=== PATIENT | female | born 1975 | race Caucasian/White ===

== ENCOUNTER → 2017-10-18 | Outpatient (REF) | payer OTHER ==
[2017-10-18 14:20] LABS: ALBUMIN 3.8 GM/DL (3.2-5.2); ALBUMIN/GLOBULIN RATIO 1.19 (1.00-1.93); ALKALINE PHOSPHATASE 54 U/L (45-117); ALT/SGPT 19 U/L (12-78); ANION GAP 5 MEQ/L (8-16); AST/SGOT 10 U/L (7-37); BILIRUBIN,TOTAL 0.3 MG/DL (0.2-1.0); BLOOD UREA NITROGEN 12 MG/DL (7-18); CARBON DIOXIDE LEVEL 27 MEQ/L (21-32); CHLORIDE LEVEL 108 MEQ/L (98-107); CHOLESTEROL LEVEL 159 MG/DL (<200); CHOLESTEROL RISK RATIO 3.117 (<5); CREATININE FOR GFR 0.58 MG/DL (0.55-1.02); GLOMERULAR FILTRATION RATE > 60.0 (>58); GLUCOSE, FASTING 102 MG/DL (70-105); HDL CHOLESTEROL 51 MG/DL (>40); LDL CHOLESTEROL 94.6 MG/DL (<100); NON-HDL-C 108 MG/DL; POTASSIUM SERUM 4.3 MEQ/L (3.5-5.1); SODIUM LEVEL 140 MEQ/L (136-145); THYROID STIMULATING HORMONE 0.669 uIU/ML (0.358-3.740); TRIGLYCERIDES LEVEL 67 MG/DL (<150)
[2017-10-18 14:23] LABS: ESTIMATED AVERAGE GLUCOSE 114 MG/DL (60-110); HEMOGLOBIN A1c 5.6 %
[2017-10-18 14:27] LABS: TOTAL 25(OH) VITAMIN D 9.8 NG/ML (30.0-100.0)
== END ==
LOC: M LAB REF 13:10
DX: Z13.9 Encounter for screening, unspecified (principal)
CPT/HCPCS: 84443

== ENCOUNTER → 2018-12-25 | Outpatient (REF) | payer OTHER ==
[2018-12-25 18:49] LABS: APPEARANCE, URINE CLEAR (CLEAR); BACTERIA, URINE AUTO 1+ (NEGATIVE); BILIRUBIN, URINE AUTO NEGATIVE (NEGATIVE); BLOOD, URINE BLOOD 2+ (NEGATIVE); COLOR, URINE YELLOW (YELLOW); GLUCOSE, URINE (UA) AUTO NEGATIVE (NEGATIVE); KETONE, URINE AUTO NEGATIVE (NEGATIVE); LEUKOCYTE ESTERASE, URINE AUTO 1+ (NEGATIVE); MUCUS, URINE SMALL (NEGATIVE); NITRITE, URINE AUTO NEGATIVE (NEGATIVE); PROTEIN, URINE AUTO NEGATIVE (NEGATIVE); RBC, URINE AUTO 8 /HPF (0-3); SPECIFIC GRAVITY URINE AUTO 1.009 (1.002-1.035); SQUAMOUS EPITHELIAL CELL UR AU 2 /HPF (0-6); UROBILINOGEN, URINE AUTO 0.2 mg/dL (0.0-2.0); WBC, URINE AUTO 4 /HPF (0-3)
== END ==
LOC: M LAB REF 16:41
PROVIDERS: ATTEND Nurse Practitioner Adult Health
DX: N39.46 Mixed incontinence (principal)

== ENCOUNTER → 2019-01-02 | Outpatient (CLI) | payer OTHER ==
--- NOTE | 2019-01-02 12:10 | REPMRS ---
Patient History The patient states she has not had a clinical breast exam in over a year. Patient had first child at age 35. No known family history of cancer, patient was adopted. 3D TOMOSYNTHESIS WAS PERFORMED. Digital Mammo Screening Bilat: January 02, 2019 - Exam #: [id number] Bilateral CC and MLO view(s) were taken. Technologist: Mariel Rodríguez Technologist FINDINGS: There are scattered fibroglandular densities. There is no evidence of cancer on this mammogram. Assessment: BI-RADS/ACR category 2 mammogram. Benign Findings. Recommendation Routine screening mammogram of both breasts in 1 year (for women over age 40). This mammogram was interpreted with the aid of an FDA-approved computer-aided dectection system. Electronically Signed By: Ramón Beltran MD 01/02/19 [id number]
== END ==
LOC: M RAD 10:59
PROVIDERS: ATTEND Nurse Practitioner Adult Health
DX: Z13.9 Encounter for screening, unspecified (principal)

== ENCOUNTER → 2019-01-09 | Outpatient (REF) | payer OTHER | LOC: M SMT 17:30 | PROVIDERS: ATTEND Urology | DX: N39.3 Stress incontinence (female) (male) (principal) ==

== ENCOUNTER → 2019-01-15 | Outpatient (REF) | payer OTHER ==
[2019-01-15 20:29] LABS: CHLAMYDIA DNA AMPLIFICATION NEGATIVE (NEGATIVE); GC DNA AMPLIFICATION NEGATIVE (NEGATIVE)
== END ==
LOC: M LAB REF 17:01
PROVIDERS: ATTEND Nurse Practitioner Family
DX: Z12.4 Encounter for screening for malignant neoplasm of cervix (principal); R87.610 Atypical squamous cells of undetermined significance on cytologic smear of cervix (ASC-US); A59.01 Trichomonal vulvovaginitis

== ENCOUNTER → 2019-03-19 | Outpatient (REF) | payer OTHER ==
[~2019-03-19] MED LIST: ALBU8.5H PO; ALL10TAB28 PO; FLUTISP NARES; MONT10TA2 PO; PRED10TA2 PO; ROBA500T PO
== END ==
LOC: M LAB REF 17:39
PROVIDERS: ATTEND Specialist
DX: N87.0 Mild cervical dysplasia (principal)

== ENCOUNTER 2019-03-28 11:01 | Emergency (ER) | payer OTHER ==
[~2019-03-28] VITALS: Ht 152.4 cm; Wt 56.8 kg
[2019-03-28] MEDS ORDERED: ALBU8.5H PO (11:14)
[2019-03-28] MEDS ORDERED: MONT10TA2 PO (11:14)
[2019-03-28] MEDS ORDERED: FLUTISP NARES (11:14)
[2019-03-28] MEDS ORDERED: ALL10TAB28 PO (11:14)
[2019-03-28] MEDS ORDERED: METHOCARBAMOL 500 MG TAB PO ONE (11:30)
[2019-03-28] MEDS ORDERED: KETOROLAC 60 MG/2 ML VIAL (J1885) IM ONE (11:30)
[2019-03-28] MEDS ORDERED: PRED10TA2 PO (11:44)
[2019-03-28] MEDS ORDERED: ROBA500T PO (11:44)
[2019-03-28 11:59] VITALS: BP 109/74
== END 2019-03-28 11:59 | disposition home or self-care (01) ==
LOC: M ED 11:01
DX: M54.42 Lumbago with sciatica, left side (principal); Z79.899 Other long term (current) drug therapy; F17.210 Nicotine dependence, cigarettes, uncomplicated
CPT/HCPCS: 96372; 99283; J1885

== ENCOUNTER → 2019-05-02 | Outpatient (REF) | payer OTHER ==
[2019-05-02 10:46] LABS: BASO % 0.5 % (0.0-1.0); EOS # 0.1 10^3/uL (0.0-0.50); EOS % 0.7 % (0.0-3.0); HEMATOCRIT 40.8 % (36.0-47.0); HEMOGLOBIN 13.8 g/dl (12.0-15.5); LYMPH # 2.3 10^3/uL (1.5-4.5); MEAN CORPUSCULAR HEMOGLOBIN 32.8 pg (27.0-33.0); MEAN CORPUSCULAR HGB CONC 33.8 g/dl (32.0-36.5); MEAN CORPUSCULAR VOLUME 96.9 fl (80.0-96.0); MONO # 0.5 10^3/uL (0.0-0.8); MONO % 5.8 % (0.0-5.0); NEUTROPHILS # 5.3 10^3/uL (1.8-7.7); NEUTROPHILS % 64.5 % (36.0-66.0); PLATELET COUNT, AUTOMATED 446 10^3/uL (150-450); RED BLOOD COUNT 4.21 10^6/uL (4.00-5.40); WHITE BLOOD COUNT 8.3 10^3/uL (4.0-10.0)
[2019-05-02 10:57] LABS: INR 1.01
[2019-05-02 10:58] LABS: PARTIAL THROMBOPLASTIN TIME 31.1 SECONDS (25.0-38.4)
[2019-05-02 11:05] LABS: HEMOGLOBIN A1c 6.2 %
[2019-05-02 11:24] LABS: ALBUMIN 4.2 GM/DL (3.2-5.2); ALT/SGPT 34 U/L (12-78); BILIRUBIN,TOTAL 0.4 MG/DL (0.2-1.0); BLOOD UREA NITROGEN 17 MG/DL (7-18); CALCIUM LEVEL 9.4 MG/DL (8.5-10.1); CARBON DIOXIDE LEVEL 28 MEQ/L (21-32); CHLORIDE LEVEL 107 MEQ/L (98-107); CHOLESTEROL LEVEL 153 MG/DL (<200); CHOLESTEROL RISK RATIO 2.732 (<5); CREATININE FOR GFR 0.58 MG/DL (0.55-1.30); FREE T4 1.02 NG/DL (0.76-1.46); GLOMERULAR FILTRATION RATE > 60.0 (>58); GLUCOSE, FASTING 86 MG/DL (70-100); HDL CHOLESTEROL 56 MG/DL (>40); LDL CHOLESTEROL 77 MG/DL (<100); NON-HDL-C 97 MG/DL; POTASSIUM SERUM 3.7 MEQ/L (3.5-5.1); SODIUM LEVEL 141 MEQ/L (136-145); TOTAL PROTEIN 7.4 GM/DL (6.4-8.2); TRIGLYCERIDES LEVEL 98 MG/DL (<150)
[2019-05-02 11:26] LABS: TOTAL 25(OH) VITAMIN D 17.5 NG/ML (30.0-100.0)
[2019-05-04 00:06] LABS: Lyme Disease IgG/IgM Antibodie <0.91 ISR (0.00-0.90); Lyme Disease IgM Ab Quantitati <0.80 index (0.00-0.79)
== END ==
LOC: M LAB REF 09:31
PROVIDERS: ATTEND Family Medicine
DX: Z01.818 Encounter for other preprocedural examination (principal)

== ENCOUNTER 2019-05-16 19:13 | Emergency (ER) | payer OTHER ==
[~2019-05-16] VITALS: Ht 152.4 cm; Wt 52.3 kg
[~2019-05-16 19:13] MED LIST changes: -ALL10TAB28 PO; +ALL10TAB29 PO; +FLUTISP; -FLUTISP NARES
[2019-05-16] MEDS ORDERED: diazePAM 10 MG TAB PO ONE (21:00)
[2019-05-16] MEDS ORDERED: KETOROLAC 30 MG/ML VIAL (J1885) IV ONE (21:00)
[2019-05-16] MEDS ORDERED: LIDOCAINE 5% (LIDODERM) PATCH TD ONE (21:00)
[2019-05-16] MEDS ORDERED: **NOTE PATIENT COMMENT** MISC XX SCH (21:00)
[2019-05-16] MEDS ORDERED: KETOROLAC 60 MG/2 ML VIAL (J1885) IM ONE (21:15)
--- NOTE | 2019-05-16 21:56 | REPVR ---
EXAM: CT Lumbar Spine Without Contrast EXAM DATE/TIME: 05/16/2019 9:05 PM CLINICAL HISTORY: 44 years old, female; Injury or trauma; Fall; Late effect from previous injury; Blunt trauma (contusions or hematomas); Injury details: Fell in December; Additional info: PT tender, fall in December TECHNIQUE: Imaging protocol: Computed tomography images of the lumbar spine without contrast. Coronal and sagittal reformatted images were created and reviewed. Radiation optimization: All CT scans at this facility use at least one of these dose optimization techniques: automated exposure control; mA and/or kV adjustment per patient size (includes targeted exams where dose is matched to clinical indication); or iterative reconstruction. COMPARISON: No relevant prior studies available. FINDINGS: Vertebrae: No acute fracture. Normal alignment. L1-L2: No disc herniation. No spinal stenosis. No neural foraminal narrowing. L2-L3: No disc herniation. No spinal stenosis. No neural foraminal narrowing. L3-L4: Circumferential annulus bulge.. No spinal stenosis. No neural foraminal narrowing. L4-L5: Circumferential annulus bulge.. No spinal stenosis. No neural foraminal narrowing. L5-S1: Circumferential annulus bulge.. No spinal stenosis. No neural foraminal narrowing. Soft tissues: There is a destructive lesion noted within the right ilium at the level the sacroiliac joint. The underlying ilium is increased in density. Loss of cortical definition of the adjacent sacrum suggest the possibility of sacral involvement.. Associated mass extends into the adjacent gluteus medius muscles. Calcification noted within the mass. IMPRESSION: 1. Expansile lytic lesion in the right ilium with an associated soft tissue mass containing heterogeneous calcification.. Focal area of loss of definition of the adjacent right lateral sacral margin could represent extension/infiltration of the mass. Differential diagnostic considerations include a primary bone tumor or metastatic disease. This was discussed with Bhargavi ARCHER by myself at 8:55 PM Central standard time on 05/16/2019 Electronically signed by: Jeanette Garibay On 05/16/2019 21:56:47 PM
[2019-05-16] MEDS ORDERED: NORC1TAB7 PO (22:33)
[2019-05-16 22:44] VITALS: BP 121/69
[2019-05-16] MEDS ORDERED: NORCO 5/325MG TABLET (BULK FOR ED) PO ONE (22:45)
[2019-05-17] MEDS ORDERED: **NOTE PATIENT COMMENT** MISC XX ONE (09:00)
--- NOTE | 2019-05-19 21:02 | ED PDOC ---
Post-Departure Follow-Up dr lundberg and dr avila faxed formal report of ct ls spine for fu Melisa Bob MD May 19, 2019 21:02
[2019-05-29] MEDS ORDERED: ALBU83IN INH (12:55)
[2019-05-29] MEDS ORDERED: VITA500045 PO (12:55)
[2019-05-29] MEDS ORDERED: IPRA0.00 INH (12:55)
[2019-05-29] MEDS ORDERED: NORC1TAB7 PO (13:30)
[2019-05-29] MEDS ORDERED: ENOX80IN3 SC (16:35)
[2019-06-07] MEDS ORDERED: NORC1TAB7 PO (11:59)
[2019-06-17] MEDS ORDERED: NORC1TAB7 PO (13:03)
[2019-06-19] MEDS ORDERED: IBUP-1022 PO (11:01)
[2019-07-04] MEDS ORDERED: MSIR30TA PO (16:14)
[2019-07-11] MEDS ORDERED: ONDA8TAB10 PO (14:17)
== END 2019-05-16 22:48 | disposition home or self-care (01) ==
LOC: M ED 19:13
DX: R93.7 Abnormal findings on diagnostic imaging of other parts of musculoskeletal system (principal); M54.5 Low back pain; Z87.891 Personal history of nicotine dependence; Z79.899 Other long term (current) drug therapy
CPT/HCPCS: 72131; 96372; 99283; J1885

== ENCOUNTER → 2019-05-29 | Outpatient (CLI) | payer OTHER ==
[~2019-05-29] MED LIST changes: +ALBU83IN INH; +ALL10TAB28 PO; -ALL10TAB29 PO; +ENOX80IN3 SC; -FLUTISP; +FLUTISP NARES; +IPRA0.00 INH; +ISOVUE-370 76% 100ML VIAL (Q9967) As Ordered ONE; +NORC1TAB7 PO; +VITA500045 PO
--- NOTE | 2019-05-29 16:20 | REP ---
CT of the chest with IV contrast, CT pulmonary angiography protocol: There are faintly visible linear densities within the pulmonary trunk and left main pulmonary artery, nonspecific, artifact from flow phenomenon versus nonocclusive thrombus. No other thrombi are identified within the pulmonary trunk, right central pulmonary artery lobe or segment branches. There are innumerable confluent irregular patchy nodular densities throughout both lung hammer. This is nonspecific and could represent infectious lung disease, chronic lung disease or metastatic lung disease. There are old bilateral pleural effusions. There is no mediastinal lymphadenopathy. There is no left hilar adenopathy. There is soft tissue density in the right hilus which could be lymphadenopathy or extension of the pulmonary process into the hilus or right middle lobe collapse. The thoracic aorta is unremarkable. The cardiac size is normal. There is no pericardial effusion. Upper abdomen: There are surgical clips in the gallbladder fossa. The hepatic parenchyma, pancreas, spleen, adrenals and renal upper poles are unremarkable. Impression: Questionable a nonocclusive pulmonary emboli in the pulmonary trunk and right main pulmonary artery. Innumerable irregular nodular confluent densities throughout the lung hammer bilaterally. This is nonspecific and could represent infectious disease, chronic lung disease or metastatic disease. There are small bilateral pleural effusions. Soft tissue density in the right hilus, nonspecific, lymphadenopathy, extension of the pulmonary disease in the hilus, or right middle lobe collapse. Electronically Signed by Ramón Liang MD 05/29/2019 04:13 P
== END ==
LOC: M RAD 14:38
PROVIDERS: ATTEND Internal Medicine Medical Oncology
DX: R06.02 Shortness of breath (principal); D48.0 Neoplasm of uncertain behavior of bone and articular cartilage; R91.8 Other nonspecific abnormal finding of lung field; J90 Pleural effusion, not elsewhere classified
CPT/HCPCS: 71275; Q9967

== ENCOUNTER 2019-06-04 10:59 | Outpatient (RCR) | payer OTHER ==
[2019-05-29 12:48] VITALS: BP 117/74
[2019-05-29 14:28] LABS: BASO # 0.1 10^3/uL (0.0-0.2); BASO % 0.6 % (0.0-1.0); EOS # 0.1 10^3/uL (0.0-0.50); EOS % 0.9 % (0.0-3.0); HEMOGLOBIN 13.3 g/dl (12.0-15.5); LYMPH # 1.8 10^3/uL (1.5-4.5); LYMPH % 16.5 % (24.0-44.0); MEAN CORPUSCULAR HEMOGLOBIN 32.8 pg (27.0-33.0); MEAN CORPUSCULAR VOLUME 93.8 fl (80.0-96.0); MONO # 0.8 10^3/uL (0.0-0.8); NEUTROPHILS % 74.5 % (36.0-66.0); PLATELET COUNT, AUTOMATED 620 10^3/uL (150-450); RED BLOOD COUNT 4.05 10^6/uL (4.00-5.40); WHITE BLOOD COUNT 10.7 10^3/uL (4.0-10.0)
[2019-05-29 15:21] LABS: ALBUMIN 3.1 GM/DL (3.2-5.2); ALT/SGPT 28 U/L (12-78); BILIRUBIN,TOTAL 0.2 MG/DL (0.2-1.0); BLOOD UREA NITROGEN 13 MG/DL (7-18); CALCIUM LEVEL 9.1 MG/DL (8.5-10.1); CARBON DIOXIDE LEVEL 25 MEQ/L (21-32); CHLORIDE LEVEL 108 MEQ/L (98-107); CREATININE FOR GFR 0.63 MG/DL (0.55-1.30); GLOMERULAR FILTRATION RATE > 60.0 (>58); GLUCOSE, FASTING 117 MG/DL (70-100); LDH LACTATE DEHYDROGENASE 383 U/L (84-246); POTASSIUM SERUM 2.6 MEQ/L (3.5-5.1); SODIUM LEVEL 140 MEQ/L (136-145); TOTAL PROTEIN 7.2 GM/DL (6.4-8.2)
[2019-05-30] MEDS: KCL 10MEQ/100ML SWI (KRUN) X 2 DOSES (20MEQ TOTAL) IV SCH ×4 (09:23→10:57)
[2019-05-30 09:45] VITALS: BP 103/72
--- NOTE | 2019-06-01 11:35 | MEDONC ---
MEDICAL ONCOLOGY INITIAL VISIT DATE OF SERVICE: 05/29/2019 REFERRING PHYSICIAN: Emergency room. DIAGNOSIS New right iliac soft tissue mass suspicious for malignancy. HISTORY OF PRESENT ILLNESS Sonia is a 44-year-old woman with an approximate 30 pack-year smoking history stopped recently, who since last January has been dealing with chronic pain, uncertain origin involving the right low back. She reports a fall several years ago with significant trauma to that area. She sought medical attention 05/16/2019 in the emergency room, a CT of the spine without contrast revealed an expansile lytic lesion in the right ileum with an associated soft tissue mass containing heterogeneous calcifications, focal areas of loss of definition. The mass is fairly large perhaps 4-5 cm. By contrast an abdomen and pelvis CT from 01/2014 revealed absolutely no abnormality in that area. Today, Sonia is accompanied by her mother. She reports the last few days feeling more short of breath. At baseline she has asthma/emphysema, a fairly significant smoking history and uses inhalers. She thinks it might be the weather. She denies hemoptysis. She has had a weight loss in the last year or so she attributes to difficulties with teeth. She had her teeth removed, was all set to have new implant placed and there was a glitch and during this whole process she feels she has had lower food intake and lost weight as a result. PAST MEDICAL HISTORY: Asthma/emphysema, possible component of COPD. PAST SURGICAL HISTORY: Cholecystectomy, D and C. ALLERGIES No known drug allergies. MEDICATIONS - albuterol 2.5 mg inhaler p.r.n. - cetirizine 10 mg daily - Vitamin D 50,000 units per week - fluticasone 2 sprays daily - [place] 5/325 up to three times daily. Recently prescribed in the emergency room. - bupropion albuterol inhalation as needed - Montelukast 10 mg daily FAMILY HISTORY The patient is adopted, does not know her biological family. REVIEW OF SYSTEMS: Positive for weight loss, recent treatment for pneumonia with 2 ounces a Z-Alfredo, right leg pain, difficulty sleeping, low back pain and pressure some radiating anteriorly. Remainder of 12 system review negative. PHYSICAL EXAMINATION The patient is a slender edentulous young woman in no distress. Respiratory: Coarse breath sounds with end inspiratory wheezes throughout, but adequate air movement. Cardiac: S1, S2 mild tachycardia, no gallop. Abdomen: Soft, nontender, nondistended, no palpable hepatosplenomegaly or mass. Extremities. No edema. Lymph nodes: No palpable submandibular, cervical, supraclavicular or axillary adenopathy bilaterally. Vitals: Weight is 51 kg, BMI 22, temperature 97, blood pressure 117/74, heart rate 114, respiratory 24, O2 sat 94%. LABORATORY: WBC 10.7, monocyte and neutrophil predominance. Hemoglobin/hematocrit 13 and 38, platelets 620. Sodium 140, potassium 2.6, chloride 108, bicarb 25. BUN, creatinine, GFR normal. Liver functions normal. Albumin 3.1, alk phos 115. IMPRESSION 44-year-old woman with a new right iliac mass arising from the bone vs surrounding soft tissue suspicious for sarcoma Symptomatic with pain. Treated currently with hydrocodone and acetaminophen, receiving relief. Extensive smoking history and history of emphysema/COPD, with new worsening shortness of breath despite two rounds of antibiotics,concerning for possible lung involvment of tumor vs pulmonary embolism. Hypokalemia revealed by labs post visit; our INTERIOR SPECIALIST Nirmala Melton called patient to set up IV vs oral repletion. PLAN 1. CT angio of the chest to rule out pulmonary embolism. 2. I have spoken with [facility] in [place]. The patient can be seen there later this week for biopsy and further imaging. This is highly suspicious for a primary sarcoma based on location and imaging. ADDENDUM at time of dication: CT angio showed multiple abnormalities, small nodules versus infiltrates versus chronic lung disease, a small possible embolus. I started Sonia on Lovenox 1.5 mg/kg 80 mg subcu daily. She is familiar with self injecting and required no teaching. I explained the lung findings, showed her the pictures and explained this could represent metastatic disease. I conferred with Dr. Carrillo's office and Papito Keen will see the patient this week with diagnostic workup proceed. He will contact me if that workup shows systemic disease. I explained all of the above to Sonia who was understandably surprised to learn of possible cancer. She and her mom asked several questions all of which I answered. I explained this could be a sarcoma which is slightly different from carcinoma. Sarcomas can be difficult to cure and I was jolynn with Sonia that when cancer has spread outside its original source and spread to the lungs for example, it would not be curable. Time statement: 45 minutes [id number] with the patient more than 50% involving counseling, care coordination, reviewing new images, instructing regarding Lovenox, reviewing the differential diagnosis, answering the patient's and her mother's questions. Electronically Signed by Kavya Pang MD 06/04/2019 10:59 A DD: Kavya Pang MD 05/30/2019 05:07 P DT: jory 06/01/2019 10:57 A CC: MD Jeramy Gregg MD
[~2019-06-04] VITALS: Ht 153.7 cm; Wt 50.8 kg
[~2019-06-04 10:59] MED LIST changes: -ALL10TAB28 PO; +ALL10TAB29 PO; +FLUTISP; -FLUTISP NARES; -ISOVUE-370 76% 100ML VIAL (Q9967) As Ordered ONE
[2019-06-04 11:09] VITALS: BP 124/93
--- NOTE | 2019-06-05 08:56 | MEDONC ---
MEDICAL ONCOLOGY FOLLOWUP DATE OF SERVICE: 06/04/2019 DIAGNOSES: 1. Right iliac mass 4-5 cm suspicious for soft tissue versus osteosarcoma in initial workup. 2. Pulmonary embolism diagnosed 05/29/2019. 3. 30 pack-year smoking history stopped May 2019. 4. Abnormal CT angio of the chest including bilateral innumerable small soft tissue densities infection versus neoplasm. INTERVAL HISTORY: Sonia was set up to see Dr. Carrillo/Or[facility]opedic [facility]cology last week but cancelled due to "not feeling well" after receiving an IV potassium repletion. She feels much better today. She has now been on Lovenox for several days. Her breathing is better she reports. Her appetite is better. She is eating more. She asks if taking Mucinex is okay. She has what she thinks is a smoker's cough, coughing up dark phlegm. She is scheduled to see Dr. Carrillo tomorrow. Today, we went over the working diagnosis of a possible sarcoma involving the left iliac with question of lung involvement versus chronic emphysema changes and superimposed bronchitis. I explained in careful plain language the important difference between localized and metastatic cancer in general, sarcoma in particular and emphasized the importance of a tissue biopsy to understand the exact diagnosis to know how it would be treated. I outlined the possibility of neoadjuvant or adjuvant chemotherapy for localized possibly operable sarcoma, systemic therapy for nonoperable cancer and again did caution Sonia and her mother nonoperable metastatic cancer is typically incurable with treatment and prognosis determined by tissue-type. 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 30 pack-year smoker recent stopping cough but improved breathing. Pulmonary embolism diagnosed 05/29/2019 breathing improved on Lovenox. PLAN: 1. Continue Lovenox. Sonia would like to go on pills but until we know her diagnosis and plan treatment course I recommended she continue Lovenox. 2. Followup with Dr. Carrillo tomorrow. 3. Return to clinic 1 week, at that point will have a little more information about the overall picture and continue to help with workup of this tumor. TIME STATEMENT: 25 minutes [id number] with the patient more than 50% involving counseling regarding all the issues above, answering questions. Electronically Signed by Kavya Pang MD 06/05/2019 11:06 A DD: Kavya Pang MD 06/04/2019 11:29 A DT: henny 06/05/2019 08:36 A CC: MD Jeramy Gregg MD
[2019-06-07] MEDS ORDERED: NORC1TAB7 PO (11:59)
[2019-06-17] MEDS ORDERED: NORC1TAB7 PO (13:03)
--- NOTE | 2019-06-17 16:23 | MEDONC ---
MEDICAL ONCOLOGY BRIEF NOTE DATE: 06/14/2019 Outside biopsy pathology report from 06/13/2019 iliac mass biopsy under Dr. 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 I have requested PD-L1, EGFR, ALK, ROS1, and BRAF testing. The patient is to follow up with Dr. Carrillo but it does appear she likely has widespread metastatic disease. Today I am referring her for rapid radiation oncology evaluation and she will followup with us in clinic next week. Electronically Signed by Kavya Pang MD 06/18/2019 01:59 P DD: Kavya Pang MD 06/14/2019 01:48 P DT: henny 06/17/2019 04:21 P CC: MD Ramón Gregg MD
[2019-06-19] MEDS ORDERED: IBUP-1022 PO (11:01)
[2019-07-04] MEDS ORDERED: MSIR30TA PO (16:14)
== END 2019-06-04 11:00 | disposition home or self-care (01) ==
LOC: M ONCM 10:59
PROVIDERS: ATTEND Internal Medicine Medical Oncology
DX: R19.09 Other intra-abdominal and pelvic swelling, mass and lump (principal); M54.5 Low back pain; J45.909 Unspecified asthma, uncomplicated; Z87.891 Personal history of nicotine dependence; Z79.899 Other long term (current) drug therapy; R06.02 Shortness of breath
CPT/HCPCS: 36591; 80053; 83615; 85027; 96365; 96366; G0463

== ENCOUNTER 2019-06-19 10:45 | Inpatient (IN) | payer OTHER ==
[~2019-06-19] VITALS: Ht 152.4 cm; Wt 50.8 kg
[2019-06-19] MEDS: ENOXAPARIN 60 MG/0.6 ML SYR (J1650) SC SCH ×2 (09:00→21:04)
[2019-06-19] MEDS ORDERED: LIDO1.1P TOP (11:01)
[2019-06-19] MEDS ORDERED: IBUP-1022 (11:01)
[2019-06-19 11:25] LABS: VENOUS BASE EXCESS 2.2 (-2.0-2.0); VENOUS HCO3 28.3 MEQ/L (23.0-27.0); VENOUS O2 SATURATION 66.6 % (60.0-80.0); VENOUS PARTIAL PRESSURE CO2 48.8 mmHg (38.0-50.0); VENOUS PARTIAL PRESSURE O2 35.8 mmHg (30.0-50.0); VENOUS PH 7.381 UNITS (7.330-7.430); VENOUS STANDARD HCO3 25.5 MEQ/L; VENOUS TOTAL CO2 29.8 MEQ/L (24.0-28.0)
[2019-06-19 11:29] LABS: BASO % 0.3 % (0.0-1.0); EOS % 0.1 % (0.0-3.0); LYMPH # 1.1 10^3/uL (1.5-5.0); LYMPH % 8.1 % (24.0-44.0); MEAN CORPUSCULAR HEMOGLOBIN 32.6 pg (27.0-33.0); MEAN CORPUSCULAR VOLUME 93.2 fl (80.0-96.0); MONO # 0.6 10^3/uL (0.0-0.8); NEUTROPHILS % 87.1 % (36.0-66.0); PLATELET COUNT, AUTOMATED 738 10^3/uL (150-450); WHITE BLOOD COUNT 13.8 10^3/uL (4.0-10.0)
[2019-06-19 11:41] LABS: HEMOGLOBIN 16.3 g/dl (12.0-15.5)
[2019-06-19 11:42] LABS: HEMATOCRIT 46.6 % (36.0-47.0)
[2019-06-19 12:09] LABS: ALBUMIN 2.9 GM/DL (3.2-5.2); ALT/SGPT 22 U/L (12-78); BILIRUBIN,DIRECT 0.2 MG/DL (0.0-0.2); BILIRUBIN,TOTAL 0.8 MG/DL (0.2-1.0); BLOOD UREA NITROGEN 19 MG/DL (7-18); CALCIUM LEVEL 9.7 MG/DL (8.5-10.1); CARBON DIOXIDE LEVEL 27 MEQ/L (21-32); CHLORIDE LEVEL 100 MEQ/L (98-107); CK-MB VALUE MASS 5.7 NG/ML (<3.6); CPK CREATINE PHOSPHOKINASE 117 U/L (26-192); CREATININE FOR GFR 0.38 MG/DL (0.55-1.30); GLOMERULAR FILTRATION RATE > 60.0 (>58); GLUCOSE, FASTING 105 MG/DL (70-100); MB/CK RELATIVE INDEX 4.87 (< OR =4); NT-PRO BNP 158 PG/ML (<125); POTASSIUM SERUM 2.7 MEQ/L (3.5-5.1); SODIUM LEVEL 138 MEQ/L (136-145); THYROXINE (T4) 9.2 UG/DL (4.5-12.0); TOTAL PROTEIN 6.4 GM/DL (6.4-8.2); TROPONIN I 0.02 NG/ML (< 0.10)
--- NOTE | 2019-06-19 12:26 | REP ---
Portable chest, 11:36 a.m., single AP view with the patient upright: Comparison is the chest CT dated 05/29/2019. There are no other comparison studies. There are numerous confluent nodular densities throughout the lung hammer bilaterally, similar to the comparison study. There are no focal infiltrates. No pleural effusions. Cardiac size is normal. The samuel, mediastinum, skeletal structures are unremarkable. Impression: Numerous confluent nodular densities throughout the lung hammer bilaterally. This is nonspecific and could represent infectious lung disease, chronic lung disease or metastatic lung disease. Electronically Signed by Ramón Liang MD 06/19/2019 12:17 P
[2019-06-19] MEDS ORDERED: IPRATROPIUM 0.5MG/ALBUTEROL 2.5MG INH SOL UD 3ML (DUONEB)(J7620) NEB ONE (12:30)
[2019-06-19] MEDS ORDERED: ALBUTEROL SULFATE 2.5 MG/0.5 ML INH NEB SOLN INH ONE (12:30)
[2019-06-19] MEDS ORDERED: ISOVUE-370 76% 100ML VIAL (Q9967) As Ordered ONE (12:32)
[2019-06-19] MEDS: MORPHINE 2 MG/ML 1ML SYRINGE (J2270) IV PRN ×2 (12:37→14:44)
[2019-06-19 13:08] LABS: INR 1.09; PROTHROMBIN TIME 13.8 SECONDS (11.8-14.0)
[2019-06-19 13:09] LABS: PARTIAL THROMBOPLASTIN TIME 38.3 SECONDS (25.0-38.4)
[2019-06-19] MEDS ORDERED: KCL 10MEQ/100ML SWI (KRUN) 10 MEQ in IV 1 EA IV ONE (14:00)
--- NOTE | 2019-06-19 14:51 | REP ---
CT of the abdomen and pelvis with IV contrast, without bowel contrast: The study is an extension of the chest CT performed this same date. Comparison is a lumbar spine CT dated 05/16/2019. There is a large expansile destructive lesion posteriorly in the right iliac wing, similar to the 05/16/[address] This lesion has eroded into the sacrum. This is unchanged. Abdomen: The hepatic parenchyma is homogeneous. There are surgical clips in the gallbladder fossa. The pancreas, spleen, adrenals, kidneys and abdominal aorta are. There is no retroperitoneal adenopathy or mass. The mesentery is unremarkable. The bowel is unremarkable. Pelvis: There is an IUD in the uterus. The uterus is otherwise unremarkable. The adnexa are unremarkable. There is no pelvic adenopathy. The pelvic bowel loops are unremarkable. Impression: There is a large destructive expansile lytic lesion posteriorly in the right iliac wing eroding into the sacrum, similar to the lumbar spine CT of 05/16/2019. There is no abdominal or pelvic adenopathy. The hepatic parenchyma is homogeneous. There are surgical clips in the gallbladder fossa. There is an IUD in the uterus. Electronically Signed by Ramón Liang MD 06/19/2019 02:42 P
--- NOTE | 2019-06-19 14:51 | REP ---
CT of the chest with IV contrast, CT pulmonary angiography protocol: Comparisons are the CT of the chest dated 2018 with IV contrast and CT of the chest dated 06/10/2019 without IV contrast. The there are faintly visible curvilinear densities in the left main pulmonary artery. The similar to the comparison study, likely vascular flow phenomenon artifact, however, nonocclusive thrombus is not entirely discounted. There is beam-hardening artifact in the right main pulmonary artery opacification of the superior vena cava. This is unchanged. No other pulmonary emboli are identified. The findings are similar to the prior study of 05/29/2019. There are numerous confluent irregular lung nodules throughout all lobes of both lungs, similar to the prior studies. This is nonspecific and could represent pneumonia and, infectious, metastatic or chronic lung disease. There is collapse of the right middle lobe as previously. There are no pleural effusions. The previous pleural effusions have resolved. There is no mediastinal or left hilar adenopathy. This is unchanged. The right hilus is obscured by the collapsed right middle lobe. There is no axillary lymphadenopathy. Upper abdomen: The visualized hepatic parenchyma is unremarkable. There are surgical clips in the gallbladder fossa, unchanged. The pancreas, spleen, adrenals and renal upper poles are unremarkable and unchanged. Impression: There is no interval change except that the previous small pleural effusions have resolved. There is imaging artifact versus nonocclusive thrombus in the left main pulmonary artery, similar to the prior study. There are numerous irregular confluent lung nodules are identified bilaterally, unchanged. Right middle lobe collapse, obscuring the right hilus, unchanged. No adenopathy. Electronically Signed by Ramón Liang MD 06/19/2019 02:42 P
[2019-06-19] MEDS ORDERED: NS 1,000 ML IV SCH (15:35)
[2019-06-19] MEDS ORDERED: NALBUPHINE HCL 10 MG/ML AMP (J2300) IV PRN (15:45)
[2019-06-19] MEDS ORDERED: MORPHINE 1MG/ML IN 0.9% NACL 100ML IV BAG IV PRN (15:45)
[2019-06-19] MEDS ORDERED: EPIDURAL/PCA KEYS XX PRN (15:45)
[2019-06-19] MEDS ORDERED: ONDANSETRON 4MG/2ML VIAL (J2405) IV PRN (15:45)
[2019-06-19] MEDS ORDERED: diphenhydrAMINE INJ 50MG/ML VIAL (J1200) IV PRN (15:45)
[2019-06-19] MEDS ORDERED: NALOXONE INJ 0.4 MG/1 ML VIAL (J2310) IV PRN (15:45)
[2019-06-19 16:00] VITALS: BP 125/76
[2019-06-19] MEDS ORDERED: SENOKOT S TAB PO PRN (16:00)
[2019-06-19] MEDS ORDERED: predniSONE 20 MG TAB PO ONE (16:00)
[2019-06-19] MEDS ORDERED: guaiFENesin DM LIQ 10ML UD PO PRN (16:15)
[2019-06-19] MEDS ORDERED: methylPREDNISolone INJ 125 MG/2 ML VIAL (J2930) IV ONE (16:15)
[2019-06-19] MEDS ORDERED: KETOROLAC 30 MG/ML VIAL (J1885) IV ONE (16:45)
[2019-06-19] MEDS ORDERED: HYDROmorphone 2 MG TAB PO ONE (17:00)
[2019-06-19] MEDS ORDERED: ACETAMINOPHEN 500 MG TAB PO ONE (17:00)
--- NOTE | 2019-06-19 17:27 | HPE ---
DATE OF ADMISSION: 06/19/2019 CHIEF COMPLAINT: Shortness of breath. 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 The patient had also been diagnosed with recent pulmonary embolism on 05/29/2019 and was subsequently treated with subcutaneous Lovenox once daily at home and follows with Dr. Kavya Pang at the [facility]. The patient states that her shortness of breath has been worsening over the past 3 weeks despite treatment with Lovenox. She had usually been on room air but found some exertional dyspnea without any chest pain, pressure, tightness, lightheadedness and dizziness. She is unable to walk from room to room due to worsening shortness of breath and could not catch her breath and unable to eat due to difficulty breathing. The patient has had a decrease in appetite with some decrease in weight which is undocumented at home. She continues to complain of right iliac wing pain that goes down her leg with no relief with her home Vicodin as scheduled. Patient was due to see Dr. Zendejas at 9:30 on 06/20/2019 to start on radiation treatment but patient has worsening shortness of breath prompting her to come to the ER. She denies any change in her chronic cough if anything it has actually been much less recently. She quit smoking 2 months ago and she had been an avid smoker for about 25 years. She denies any fevers, chills and denies any PND orthopnea, hemoptysis as outpatient. She otherwise denies any bright red blood per rectum, melena, or black tarry stools. In the hospital she was found to be saturating 90% on room air unable to ambulate due to severe pain on the right iliac bone. Hospitalist service was called to admit for worsening respiratory distress and pain secondary to lung cancer. CT of the chest, abdomen and pelvis are unchanged from previous findings. There is no pleural effusion, postobstructive pneumonia. Patient's white count was 13,000, potassium 2.7 which has been replenished. Troponin was negative, EKG showed sinus tachycardia with left posterior vesicular branch. Hospitalist service is admitting for worsening respiratory distress from known pulmonary embolism, lung cancer, and probable new onset copd exacerbation without prior evaluation or documented history of copd. PAST MEDICAL HISTORY: 25-year history of smoking with no diagnosis of emphysema or COPD, stress urinary incontinence, recent diagnosis of metastatic lung cancer to the right iliac wing with adenocarcinoma referred to radiation oncology for treatment. [facility]. Pulmonary embolism. ALLERGIES: Penicillin causing yeast infections. PAST SURGICAL HISTORY: 9 teeth were pulled 11/2018, cholecystectomy 2018 and D and C in 2006. FAMILY HISTORY: Patient is adopted. Unknown history. SOCIAL HISTORY: Less than a pack a day for 25 years. Patient quit smoking 2 months when she was diagnosed with metastatic lung cancer. Patient does smoke marijuana occasionally and denies any alcohol use. 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 REVIEW OF SYSTEMS: 12 point system negative aside from positive findings in history of presenting illness. PHYSICAL EXAMINATION: VITALS: Temperature 98.1, pulse 128, sinus tachycardia, respiratory rate 18, blood pressure 119/89, 94% on 4 liters nasal cannula, 90% on room air. Generally patient is cachexic appearing with moderate respiratory distress. She is at 45 degrees head elevation, Positive use of respiratory accessory muscles with 5 to 6 word conversational dyspnea. There is no pallor, no icterus, dry mucous membranes. No JVD, thyromegaly. She has some missing teeth and poor dentition. Lungs bilateral wheezing, air entry is diminished. Heart S1, S2 sinus tachycardia. No murmurs or rubs noted. Abdomen is soft and nontender and nondistended and positive bowel sounds. No hepatosplenomegaly. Extremities, no cyanosis, clubbing or pitting edema. At the right iliac wing the patient has a notable biopsy site and incision site is clean and it is erythematous but no fluctuance. EKG sinus tachycardia, ventricular rate of 120, left posterior vesicular block, white count 13.8, hemoglobin 16, hematocrit 46, platelet count 738, sodium 138, potassium 2.7, chloride 100, bicarbonate 27, BUN 19, creatinine 0.38, glucose 105, lactic acid 1.7, calcium 9.7, magnesium 2, direct bilirubin 0.28, C 21, ALT 22, alkaline phos 131, total CK 117, MB fraction 5.7, troponin 0.02, BNP 158, albumin 2.9, TSH 1.84. Blood culture is pending. CT chest, no interval change except previous small effusions have resolved. Non-occlusive thrombus left main pulmonary artery. Irregular confluent lung nodules bilateral, right middle lobe collapse obscuring the right hilus unchanged. No adenopathy. CT abdomen and pelvis shows large destructive and expansile lytic lesion in the right iliac wing eroding into the sacrum, similar to 05/16/2019, no abdominal or pathologic lymphadenopathy. Surgical clips in the gallbladder fossa and an IUD in the uterus. ASSESSMENT AND PLAN: This is a 44-year-old female with a 25 pack year history of smoking, marijuana use, stress urinary incontinence found to have a right iliac mass 4-5 cm status-post biopsy showing a mucinous adenocarcinoma of the lung with metastatic lesion to the right iliac wing eroding into the sacrum. Patient was also diagnosed recently with pulmonary embolism and has been using once daily Lovenox. She has presented to the ER with worsening shortness of breath and pain in the right ileum. Admitted as an inpatient for two midnights for the following acute issues. Worsening respiratory distress secondary to copd exacerbation with decreased air entry, audible wheezing or exam, adenocarcinoma of the lung with metastatic lesion to the right iliac wing eroding into the sacrum, and recent diagnosis of pulmonary embolism. Her documented o2 sat was 90% on RA at rest. She will be given subcu Lovenox 1 mg per kg subcu every 12 hours, adjusted renally by pharmacy. Patient is continued on supplemental oxygen to keep Oxygen saturation greater than 90%. She has audible wheezing on examination and will also be treated for COPD exacerbation with iv solumedrol, nebs, o2, doxycycline for the anti- inflammatory effect. COPD exacerbation, New onset she presents with bilateral wheezing and worsening respiratory distress. She is saturating 90% on room air but is requiring supplemental oxygen for comfort. Patient is currently refusing any nebulizer treatments due to increasing coughing fits causing more pain in the right hip where her cancer is. Keep oxygensaturation at 90-92%For now the patient will be given iv solumedrol, PRN nebulizer treatment and supplemental oxygen and doxycycline for antiinflammatory effect. No obvious pneumonia on the CT of the chest. Pt says that her pain in the right hip is so severe she cannot walk as she normally does. Therefore, we are unable to ambulate her on room air to check her o2 sat. Right iliac wing /sacral pain secondary to metastatic lung cancer. Patient will be receiving radiation treatment from Dr. Zendejas at 0930 am 06/20/19, and pt's mother wants to accompany her. She is high risk of co2 retention in light of copd exacerbation, lung cancer, and pe, and has been placed on YANELIS protocol, continuous o2 monitoring, with narcan prn. RN and PCU supervising RN have been made aware of pt's risk of hypercapnia. Despite iv toradol, tylenol, pt has had no relief of pain, and still requesting meds. Vicodin does not touch her pain per her mother, and only causes constipation and urine retention. She is on a reduced morphine traveling nurse, with a low threshold to discontinue and reverse with narcan should the patient's mental and respiratory status worsen. Pulmonary Embolism due to malignancy on lovenox 1mg/kg sq q12hrs. Adenocarcinoma of the lung with mets to right sacrum/iliac wing, stage IV poor overall prognosis. radiation oncology has been consulted for urgent radiation for pain control. Cigarette abuse. Patient had quit smoking two months ago. Cancer cachexia. Nutritional consultation for supplemental nutrition. History of stress urinary incontinence. No acute issues. Opiate-induced constipation bowel regimen opiate-induced urine retention bladder scan and post void residual monitoring. intermittent cath vs. cooper. Code status: full code. MTDD
[2019-06-19] MEDS: POTASSIUM CHLORIDE 10 MEQ SR TABLET PO ONE ×2 (17:35→18:17)
[2019-06-19] MEDS: MOM 30ML SUSPENSION UDC PO SCH ×2 (18:17→20:58)
[2019-06-19] MEDS ORDERED: POTASSIUM CHLORIDE 10% LIQ 20 MEQ/15 ML UDC PO ONE (18:45)
[2019-06-19] MEDS: DOXYCYCLINE HYCLATE 100 MG in D5W MINI-BAG PLUS 100 ML IV SCH (18:55)
[2019-06-19] MEDS: BACITRACIN OINT 30GM TOP SCH ×2 (18:55→20:58)
[2019-06-19 19:00] VITALS: O2SAT 94
[2019-06-19 20:00] VITALS: BP 111/72; O2SAT 92
[2019-06-19] MEDS: LEVALBUTEROL 1.25 MG/0.5 ML CONCENTRATE NEB INH SCH (20:00)
[2019-06-19 21:00] VITALS: O2SAT 94
[2019-06-19] MEDS: LIDOCAINE 5% OINT 30 GM TOP SCH (21:03)
[2019-06-19 22:00] VITALS: O2SAT 96
[2019-06-19 22:48] LABS: MAGNESIUM LEVEL 1.8 MG/DL (1.8-2.4)
[2019-06-19 23:00] VITALS: O2SAT 97
[2019-06-20] VITALS (24 sets, daily range): BP systolic 103–124; BP diastolic 70–80; O2SAT 86–100
[2019-06-20] MEDS: MOM 30ML SUSPENSION UDC PO SCH ×3 (01:00→09:00)
[2019-06-20] MEDS: methylPREDNISolone INJ 125 MG/2 ML VIAL (J2930) IV SCH ×2 (01:15→05:40)
[2019-06-20] MEDS: KETOROLAC 30 MG/ML VIAL (J1885) IV SCH ×2 (01:15→05:40)
[2019-06-20] MEDS ORDERED: KCL 40MEQ IN D5/NS 1000ML 1,000 ML IV SCH (01:45)
[2019-06-20] MEDS ORDERED: MAG SULF 1GM/100ML (MAG RUN) 1 GM in IV 1 EA IV ONE (01:45)
[2019-06-20] MEDS ORDERED: KCL 40MEQ IN D5/0.45NS 1000ML 1,000 ML IV SCH (01:45)
[2019-06-20] MEDS: POTASSIUM CHLORIDE 10% LIQ 20 MEQ/15 ML UDC PO SCH ×2 (02:47→02:49)
[2019-06-20] MEDS: KCL 10MEQ/100ML SWI (KRUN) 10 MEQ in IV 1 EA IV SCH ×4 (02:49→07:19)
[2019-06-20] MEDS: LEVALBUTEROL 1.25 MG/0.5 ML CONCENTRATE NEB INH SCH ×7 (03:25→23:09)
[2019-06-20 05:48] LABS: HEMATOCRIT 39.8 % (36.0-47.0); MEAN CORPUSCULAR HEMOGLOBIN 32.9 pg (27.0-33.0); MEAN CORPUSCULAR HGB CONC 34.4 g/dl (32.0-36.5); MEAN CORPUSCULAR VOLUME 95.7 fl (80.0-96.0); RED BLOOD COUNT 4.16 10^6/uL (4.00-5.40)
[2019-06-20 05:58] LABS: HEMOGLOBIN 13.7 g/dl (12.0-15.5); PLATELET COUNT, AUTOMATED 630 10^3/uL (150-450)
[2019-06-20] MEDS: DOXYCYCLINE HYCLATE 100 MG in D5W MINI-BAG PLUS 100 ML IV SCH ×2 (06:13→15:02)
[2019-06-20 06:28] LABS: ALBUMIN 2.4 GM/DL (3.2-5.2); ALT/SGPT 25 U/L (12-78); BILIRUBIN,TOTAL 0.5 MG/DL (0.2-1.0); BLOOD UREA NITROGEN 25 MG/DL (7-18); CARBON DIOXIDE LEVEL 26 MEQ/L (21-32); CHLORIDE LEVEL 102 MEQ/L (98-107); CREATININE FOR GFR 0.39 MG/DL (0.55-1.30); GLOMERULAR FILTRATION RATE > 60.0 (>58); GLUCOSE, FASTING 118 MG/DL (70-100); POTASSIUM SERUM 4.1 MEQ/L (3.5-5.1); SODIUM LEVEL 135 MEQ/L (136-145); TOTAL PROTEIN 6.4 GM/DL (6.4-8.2)
[2019-06-20] MEDS ORDERED: PANTOPRAZOLE 40MG TAB (PROTONIX) PO SCH (09:00)
[2019-06-20] MEDS ORDERED: ENOXAPARIN 40 MG/0.4 ML SYRINGE (J1650) SC SCH (09:00)
[2019-06-20] MEDS: PANTOPRAZOLE 40MG TAB (PROTONIX) PO SCH (10:12)
[2019-06-20] MEDS: ENOXAPARIN 60 MG/0.6 ML SYR (J1650) SC SCH ×2 (10:13→21:48)
[2019-06-20] MEDS: BACITRACIN OINT 30GM TOP SCH ×2 (10:13→21:33)
[2019-06-20] MEDS: LIDOCAINE 5% OINT 30 GM TOP SCH (10:14)
[2019-06-20] MEDS ORDERED: NALOXONE INJ 0.4 MG/1 ML VIAL (J2310) IV PRN (11:15)
[2019-06-20] MEDS ORDERED: IPRATROPIUM HFA INHALER 12.9 GRAMS (ATROVENT HFA) INH SCH (12:00)
[2019-06-20] MEDS: MORPHINE 30 MG TAB **MSIR PO SCH ×2 (13:40→21:31)
[2019-06-20] MEDS ORDERED: PILL CUTTER 1 EACH XX PRN (13:45)
[2019-06-20] MEDS: predniSONE 20 MG TAB PO SCH ×2 (15:03→21:32)
[2019-06-20] MEDS ORDERED: NS 250 ML IV ONE (17:15)
[2019-06-20] MEDS ORDERED: MONTELUKAST 10 MG TAB PO ONE (17:15)
[2019-06-20] MEDS ORDERED: CETIRIZINE (ZyrTEC) 10 MG TAB PO ONE (17:15)
--- NOTE | 2019-06-20 17:39 | IPN ---
DATE: 06/20/2019 SUBJECTIVE: Patient's pain is improved with morphine. She stated that she tried to use this a minimally as possible due to increased risk of CO2 retention with the PE, COPD, and lung cancer. Her breathing is much more improved on oxygen and Solu-Medrol. She continues to have a cough which is dry. No fevers or chills overnight. She does have occasional palpitations when she walks and still with dyspnea on exertion and pain of the right hip, improved but still present. Patient is scheduled for radiation treatment 9:30 this morning. OBJECTIVE: PHYSICAL EXAMINATION: VITALS: Temperature 97, pulse 112 sinus, respiratory 20, blood pressure 113/70. 94% on 4 liters nasal cannula. Generally patient is cachexic appearing with bilateral bitemporal muscle wasting. She has mild respiratory distress. No use of respiratory or accessory muscles. She does have some conversational dyspnea. No jugular venous distension, no thyromegaly or cervical lymphadenopathy. Moist mucous membranes. Lungs diminished but clear to auscultation with faint expiratory wheezing. Air entry is improved from yesterday. Heart S1, S2 sinus rhythm with episodes of sinus tachycardia. Abdomen is soft and nontender, nondistended. Positive bowel sounds. Extremities have no cyanosis, clubbing or pitting edema. The patient at the iliac wing does have an erythematous area where the bone marrow biopsy was performed. It is slightly tender without any induration or purulence of fluctuance. HOSPITAL MEDICATIONS: Prednisone, Atrovent, Narcan, Protonix, previously on morphine SUPERVISOR BOTTLE MACHINES pump, lidocaine and Xopenex, acetaminophen, Robitussin, Doxycycline, Senokot, bacitracin and Lovenox. LABORATORY DATA: White count 16, hemoglobin 13, hematocrit 39, platelet count 630, sodium 135, potassium 4.1, chloride 102, bicarbonate 26, BUN 24, creatinine 0.39, glucose 118, lactic acid 1.1, calcium 9, magnesium 1.8, AST 25, ALT 20, albumin 2.4, Procalcitonin 1.47. Microbiology, blood culture no growth. CT abdomen and pelvis shows larger destructive expansile lytic lesion, posteriorly in the right iliac wing eroding the sacrum, similar to a lumbar spine CT on 05/16 with no abdominal or pelvic lymphadenopathy. There are surgical clips in the gallbladder fossa and IUD in the uterus. CT angio of the chest shows no interval change except previous small pleural effusions have resolved. Non-occlusive thrombus left pain pulmonary artery similar to prior study. Irregular confluent lung nodules identified bilaterally which is unchanged. ASSESSMENT AND PLAN: This is a 44-year-old female with recent diagnosis of adenocarcinoma of the lung, mucinous with metastatic lesion to the right iliac wing and to the sacrum. Currently being managed with radiation therapy by Dr. Engle, recent diagnosis of pulmonary embolism treated with Lovenox at home who presented with a 3 week history of worsening dyspnea on exertion. Currently patient is being treated for the following issues: 1. Acute COPD exacerbation improved on Solumedrol overnight, currently transitioned to prednisone on antibiotics, nebulizer treatments and supplemental oxygen. Patient is improved clinically and is anxious to go home but realizes that she may need another day or two. 2. Right iliac wing metastatic lesion from primary lung cancer eroding to the sacrum with difficulty ambulating due to severe pain due to increased risk of hypercapnia and CO2 retention the patient has been advised to use pain medications that are opioid-based as minimally as possible. She says that the Vicodin that she was prescribed was giving her no relief. She did receive a reduced dose of morphine overnight 1 dose of by mouth Dilaudid and was kept on IV Toradol for comfort as needed. Patient is going to undergoing radiation treatment with Dr. Engle.. PT has been consulted, pain management has also been consulted for assistance and recommended morphine MSIR twice a day for now. We will await for the recommendations. 3. Pulmonary embolism. Currently on Lovenox subcu twice a day 1 mg per kg most likely secondary to adenocarcinoma of the lung and hypercoagulable state. 4. Adenocarcinoma of the lung with mets to the sacrum and iliac wings stage 4 poor overall prognosis. Rad-Onc has been consulted for urgent radiation for pain control. She is currently managed by Dr. Kavya Pang as outpatient. He will determine the rest of her management. 5. Cigarette abuse. Quit smoking 2 months ago, a 14-fjyx-otttodh of smoking. 6. Cancer cachexia and nutritional consultation for supplemental infusion. Patient states that she does better with small frequent meals. History of stress urinary incontinence. No acute issues. Opiate induced constipation. Currently on a bowel regimen. 7. Urine retention. Post-void residual monitor and bladder scan if needed. 8. Sinus tachycardia due to PE and respiratory distress. sbp maintained without hemodynamic compromise. tsh wnl. low dose betablocker and monitor for possible bronchospasms. Code status is a full code. MTDD
[2019-06-20] MEDS: ACETAMINOPHEN 500 MG TAB PO PRN (17:59)
[2019-06-20] MEDS: IPRATROPIUM 0.02% SOLN 0.5MG/2.5 ML NEB INH SCH ×2 (18:28→23:09)
[2019-06-20] MEDS ORDERED: METOPROLOL TART 25 MG TABLET PO ONE (19:00)
--- NOTE | 2019-06-20 21:24 | ECGEPIP ---
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
[2019-06-20] MEDS: LIDOCAINE 5% OINT 30 GM TOP PRN (21:34)
[2019-06-20] MEDS ORDERED: FAMOTIDINE 20 MG TAB PO ONE (22:15)
[2019-06-20] MEDS: METOPROLOL TART 12.5 MG PER 1/2 TAB PO SCH (23:32)
[2019-06-21] VITALS (20 sets, daily range): BP systolic 113–131; BP diastolic 66–77; O2SAT 90–97
[2019-06-21] MEDS: ACETAMINOPHEN 500 MG TAB PO PRN (02:55)
[2019-06-21] MEDS: LIDOCAINE 5% OINT 30 GM TOP PRN ×2 (02:56→11:17)
[2019-06-21] MEDS: IPRATROPIUM 0.02% SOLN 0.5MG/2.5 ML NEB INH SCH ×6 (03:00→23:55)
[2019-06-21] MEDS: LEVALBUTEROL 1.25 MG/0.5 ML CONCENTRATE NEB INH SCH ×6 (03:00→23:55)
[2019-06-21] MEDS: DOXYCYCLINE HYCLATE 100 MG in D5W MINI-BAG PLUS 100 ML IV SCH ×2 (03:44→15:15)
[2019-06-21] MEDS: METOPROLOL TART 12.5 MG PER 1/2 TAB PO SCH ×4 (06:11→23:47)
[2019-06-21] MEDS: predniSONE 20 MG TAB PO SCH (06:12)
[2019-06-21] MEDS ORDERED: MORPHINE 4 MG/ML 1ML VIAL/SYRINGE (J2270) IV ONE (08:30)
[2019-06-21] MEDS ORDERED: ACETAMINOPHEN 325 MG TAB PO ONE (08:30)
[2019-06-21] MEDS: MORPHINE 30 MG TAB **MSIR PO SCH ×2 (09:00→20:13)
[2019-06-21] MEDS ORDERED: methylPREDNISolone INJ 125 MG/2 ML VIAL (J2930) IV ONE (09:00)
[2019-06-21] MEDS ORDERED: SLF 3 ML SYR IV PRN (09:00)
--- NOTE | 2019-06-21 09:38 | IPN ---
DATE: 06/21/2019 The patient is seen and examined at the bedside. SUBJECTIVE: She complains of significant pain at the right hip, radiation was not started yesterday. She was marked with plans for radiation on Monday. She describes the pain as severe, 10 out of 10 on a pain scale, even at rest. The patient denies any cough, fever or chills. She complains of significant wheezing since change in oral prednisone. She has a cough that is a little bit dry. Complains of some palpitations. No lightheadedness or dizziness when she ambulates. She was started on metoprolol yesterday secondary to heart rate of 130 to 140, which was with stable blood pressure. PHYSICAL EXAMINATION: VITAL SIGNS: Temperature 97.1, pulse 106, respiratory rate 22, blood pressure 120/69, 96% on 4 liters nasal cannula. GENERAL: The patient is in mild distress. She is using respiratory accessory muscles and pursed lips this morning. She does have six to seven word conversational dyspnea. No pallor. No icterus. No cyanosis. Trachea is midline. Dry mucous membranes with chapped lips. LUNGS: Diminished. Bilateral expiratory wheezing. Prolonged expiration. No tripod positioning. Positive use of respiratory accessory muscles without tracheal deviation. HEART: S1, S2. Sinus tachycardia. No murmurs, rubs or gallops. ABDOMEN: Soft, nontender, nondistended. Positive bowel sounds. No rebound or guarding or hepatosplenomegaly. The patient continues to have some erythema, bruising, and tender right iliac post lumbar puncture lesion, which is not fluctuant and not indurated. EXTREMITIES: No cyanosis, clubbing or any pitting edema. HOSPITAL MEDICATIONS: - Zyrtec - Singulair - Solu Medrol - morphine sulfate - Toradol - morphine IV - Lopressor - Atrovent - Lidocaine - Protonix - Narcan - Xopenex - Tylenol - doxycycline - Senokot S - Bacitracin ASSESSMENT AND PLAN: This is a 44-year-old female with over 25 pack year history of smoking, no prior diagnosis of chronic obstructive pulmonary disease (COPD) or emphysema, presented to her doctor due to right leg pain and found to have right iliac wing lesion. She was sent to orthopedic surgery and status post biopsy showing a metastatic adenocarcinoma of the lung, mucinous type with lesions in the right iliac wing eroding into the sacrum. The patient was seen by Dr. Pang and referred to radiation oncology for urgent radiation. She was marked yesterday. She presented to the emergency room with a 3 week history of worsening dyspnea on exertion, unable to move from room to room without significant distress. The patient was found to be having expiratory wheezing and COPD exacerbation and has been admitted for the following issues: 1. Acute COPD exacerbation. Changed to prednisone yesterday with worsening distress. Currently back on IV Solu Medrol, antibiotics, nebulizer treatments and supplemental oxygen. 2. Pulmonary embolism. On Lovenox 1 mg per kg secondary to adenocarcinoma of the lung and hypercoagulable state. 3. Lung cancer, adenocarcinoma of the lung, stage IV. Mucinous type with metastatic lesion to the right iliac wing and eroding into the sacrum with difficulty ambulating due to severe pain. The patient was seen by Dr. Zendejas and marked with plans for radiation on Monday. The patient is high risk of CO2 retention due to PE, lung cancer and COPD exacerbation, therefore for pain control, pain management has been consulted. Per YANELY Carrion from the pain management service, the patient may benefit from MSIR 15 mg twice a day. The patient has had no relief from this and this has been increased to 30 mg by mouth twice a day with IV morphine, Narcan as needed, and will be discontinued should the patient be found to have respiratory distress with respiratory rate less than 12 or altered mental status and obtundation. 4. Adenocarcinoma of the lung, mucinous type with metastatic lesions to the right iliac wing and eroding into the sacrum, stage IV, poor overall prognosis, radiation oncology was consulted for urgent radiation and pain control. She is managed as outpatient by Dr. Kavya Pang, who will determine the rest of her management when she is discharged. 5. Debility. The patient currently is not safe for hospital discharge and will be receiving radiation treatment on Monday. 6. Urinary retention, postvoid residual. Monitor with bladder scan if needed. 7. Sinus tachycardia secondary to PE, respiratory distress, COPD and lung cancer. Has no hemodynamic compromise. TSH is normal. Currently on low dose beta thiago with no signs of bronchospasms. 8. Cancer cachexia. Nutritional consultation for supplemental nutrition. Currently on three times a day Boost. MTDD
[2019-06-21] MEDS: CETIRIZINE (ZyrTEC) 10 MG TAB PO SCH (11:15)
[2019-06-21] MEDS: ENOXAPARIN 60 MG/0.6 ML SYR (J1650) SC SCH ×2 (11:15→20:13)
[2019-06-21] MEDS: BACITRACIN OINT 30GM TOP SCH ×2 (11:17→20:13)
[2019-06-21] MEDS: KETOROLAC 30 MG/ML VIAL (J1885) IV SCH ×3 (11:17→20:12)
[2019-06-21] MEDS: PANTOPRAZOLE 40MG TAB (PROTONIX) PO SCH (11:18)
[2019-06-21] MEDS: MONTELUKAST 10 MG TAB PO SCH (11:18)
[2019-06-21] MEDS: SLF 3 ML SYR IV SCH ×2 (14:10→20:13)
[2019-06-21] MEDS: methylPREDNISolone INJ 125 MG/2 ML VIAL (J2930) IV SCH ×2 (14:10→20:12)
[2019-06-21] MEDS: MORPHINE 4 MG/ML 1ML VIAL/SYRINGE (J2270) IV PRN ×3 (18:01→22:45)
[2019-06-21] MEDS ORDERED: SODIUM CHLORIDE NASAL 0.65% SPRAY BTL (OCEAN) PRN (22:30)
[2019-06-21] MEDS ORDERED: FAMOTIDINE 20 MG TAB PO ONE (22:30)
[2019-06-22] VITALS (17 sets, daily range): BP systolic 108–126; BP diastolic 68–85; O2SAT 90–100
[2019-06-22] MEDS: MORPHINE 4 MG/ML 1ML VIAL/SYRINGE (J2270) IV PRN ×9 (01:00→22:11)
[2019-06-22] MEDS: DOXYCYCLINE HYCLATE 100 MG in D5W MINI-BAG PLUS 100 ML IV SCH ×2 (03:56→17:07)
[2019-06-22] MEDS: KETOROLAC 30 MG/ML VIAL (J1885) IV SCH ×4 (03:56→21:13)
[2019-06-22] MEDS: methylPREDNISolone INJ 125 MG/2 ML VIAL (J2930) IV SCH ×4 (03:56→21:12)
[2019-06-22] MEDS: LEVALBUTEROL 1.25 MG/0.5 ML CONCENTRATE NEB INH SCH ×6 (04:08→23:21)
[2019-06-22] MEDS: IPRATROPIUM 0.02% SOLN 0.5MG/2.5 ML NEB INH SCH ×6 (04:09→23:21)
[2019-06-22] MEDS: METOPROLOL TART 12.5 MG PER 1/2 TAB PO SCH ×3 (06:12→17:07)
[2019-06-22] MEDS: SLF 3 ML SYR IV SCH ×3 (06:12→22:12)
[2019-06-22 07:29] LABS: HEMATOCRIT 36.4 % (36.0-47.0); HEMOGLOBIN 12.2 g/dl (12.0-15.5); MEAN CORPUSCULAR HGB CONC 33.5 g/dl (32.0-36.5); MEAN CORPUSCULAR VOLUME 98.4 fl (80.0-96.0); PLATELET COUNT, AUTOMATED 569 10^3/uL (150-450)
[2019-06-22 07:56] LABS: BLOOD UREA NITROGEN 22 MG/DL (7-18); CALCIUM LEVEL 9.1 MG/DL (8.5-10.1); CARBON DIOXIDE LEVEL 28 MEQ/L (21-32); CHLORIDE LEVEL 100 MEQ/L (98-107); CREATININE FOR GFR 0.31 MG/DL (0.55-1.30); GLOMERULAR FILTRATION RATE > 60.0 (>58); GLUCOSE, FASTING 133 MG/DL (70-100); POTASSIUM SERUM 3.6 MEQ/L (3.5-5.1); SODIUM LEVEL 136 MEQ/L (136-145)
[2019-06-22] MEDS: MORPHINE 30 MG TAB **MSIR PO SCH ×2 (08:13→21:00)
[2019-06-22] MEDS: ENOXAPARIN 60 MG/0.6 ML SYR (J1650) SC SCH ×2 (08:14→21:12)
[2019-06-22] MEDS: MONTELUKAST 10 MG TAB PO SCH (08:14)
[2019-06-22] MEDS: PANTOPRAZOLE 40MG TAB (PROTONIX) PO SCH (08:14)
[2019-06-22] MEDS: CETIRIZINE (ZyrTEC) 10 MG TAB PO SCH (08:14)
[2019-06-22] MEDS: BACITRACIN OINT 30GM TOP SCH ×2 (08:15→21:14)
--- NOTE | 2019-06-22 10:42 | ECGEPIP ---
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
[2019-06-22] MEDS: FAMOTIDINE 20 MG TAB PO SCH ×2 (11:28→21:11)
[2019-06-22] MEDS: guaiFENesin ER 600 MG TAB PO SCH ×2 (11:28→21:11)
[2019-06-22] MEDS: LEVALBUTEROL 1.25 MG/0.5 ML CONCENTRATE NEB INH PRN (21:30)
[2019-06-23] VITALS (13 sets, daily range): BP systolic 114–132; BP diastolic 68–94; O2SAT 91–99
[2019-06-23] MEDS: METOPROLOL TART 12.5 MG PER 1/2 TAB PO SCH ×3 (00:58→11:12)
[2019-06-23] MEDS: MORPHINE 4 MG/ML 1ML VIAL/SYRINGE (J2270) IV PRN ×7 (00:59→23:35)
[2019-06-23] MEDS: LEVALBUTEROL 1.25 MG/0.5 ML CONCENTRATE NEB INH PRN ×4 (01:07→13:48)
[2019-06-23] MEDS: LEVALBUTEROL 1.25 MG/0.5 ML CONCENTRATE NEB INH SCH ×6 (04:00→22:53)
[2019-06-23] MEDS: IPRATROPIUM 0.02% SOLN 0.5MG/2.5 ML NEB INH SCH ×6 (04:00→22:54)
[2019-06-23] MEDS: KETOROLAC 30 MG/ML VIAL (J1885) IV SCH ×4 (04:02→20:54)
[2019-06-23] MEDS: DOXYCYCLINE HYCLATE 100 MG in D5W MINI-BAG PLUS 100 ML IV SCH ×2 (04:03→17:02)
[2019-06-23] MEDS: methylPREDNISolone INJ 125 MG/2 ML VIAL (J2930) IV SCH ×4 (04:03→20:53)
[2019-06-23] MEDS: SLF 3 ML SYR IV SCH ×3 (05:45→22:18)
[2019-06-23 06:18] LABS: BASO % 0.1 % (0.0-1.0); HEMATOCRIT 34.6 % (36.0-47.0); HEMOGLOBIN 11.7 g/dl (12.0-15.5); LYMPH # 0.3 10^3/uL (1.5-5.0); MEAN CORPUSCULAR HEMOGLOBIN 33.1 pg (27.0-33.0); MEAN CORPUSCULAR HGB CONC 33.8 g/dl (32.0-36.5); MONO # 0.8 10^3/uL (0.0-0.8); MONO % 5.1 % (0.0-5.0); NEUTROPHILS # 13.6 10^3/uL (1.5-8.5); NEUTROPHILS % 92.4 % (36.0-66.0); PLATELET COUNT, AUTOMATED 557 10^3/uL (150-450); RED BLOOD COUNT 3.53 10^6/uL (4.00-5.40); WHITE BLOOD COUNT 14.7 10^3/uL (4.0-10.0)
[2019-06-23 06:43] LABS: BLOOD UREA NITROGEN 21 MG/DL (7-18); CALCIUM LEVEL 9.3 MG/DL (8.5-10.1); CARBON DIOXIDE LEVEL 33 MEQ/L (21-32); CHLORIDE LEVEL 98 MEQ/L (98-107); GLOMERULAR FILTRATION RATE > 60.0 (>58); GLUCOSE, FASTING 166 MG/DL (70-100); POTASSIUM SERUM 3.5 MEQ/L (3.5-5.1); SODIUM LEVEL 137 MEQ/L (136-145)
[2019-06-23 07:06] LABS: LYMPH % 1.8 % (24.0-44.0)
[2019-06-23] MEDS: FAMOTIDINE 20 MG TAB PO SCH ×2 (08:32→20:55)
[2019-06-23] MEDS: ENOXAPARIN 60 MG/0.6 ML SYR (J1650) SC SCH ×2 (08:33→21:53)
[2019-06-23] MEDS: guaiFENesin ER 600 MG TAB PO SCH ×2 (08:33→20:55)
[2019-06-23] MEDS: CETIRIZINE (ZyrTEC) 10 MG TAB PO SCH (08:33)
[2019-06-23] MEDS: MONTELUKAST 10 MG TAB PO SCH (08:33)
[2019-06-23] MEDS: BACITRACIN OINT 30GM TOP SCH ×2 (08:34→20:54)
[2019-06-23] MEDS: MORPHINE 30 MG TAB **MSIR PO SCH ×2 (08:35→20:55)
[2019-06-23] MEDS ORDERED: LEVALBUTEROL 1.25 MG/0.5 ML CONCENTRATE NEB NEB ONE (10:30)
[2019-06-23] MEDS ORDERED: IPRATROPIUM HFA INHALER 12.9 GRAMS (ATROVENT HFA) INH ONE (10:30)
[2019-06-23] MEDS ORDERED: METOPROLOL TART 25 MG TABLET PO ONE (17:00)
--- NOTE | 2019-06-23 17:24 | IPNPDOC ---
Date Seen The patient was seen on 06/23/19. Progress Note SUBJECTIVE: purdy. tachycardic. no dizziness or lightheadedness. pain is better in right hip. no fever or chills. trying to eat better. says she gained two pounds since admission. PHYSICAL EXAMINATION: VITAL SIGNS: pls see below GENERAL: speaks in full sentences No pallor. No icterus. No cyanosis. Trachea is midline. Dry mucous membranes with chapped lips. LUNGS: Diminished. Bilateral expiratory wheezing. Prolonged expiration. No tripod positioning. Positive use of respiratory accessory muscles without tracheal deviation. HEART: S1, S2. Sinus tachycardia. No murmurs, rubs or gallops. ABDOMEN: Soft, nontender, nondistended. Positive bowel sounds. No rebound or guarding or hepatosplenomegaly. The patient continues to have some erythema, bruising, and tender right iliac post lumbar puncture lesion, which is not fluctuant and not indurated. EXTREMITIES: No cyanosis, clubbing or any pitting edema. HOSPITAL MEDICATIONS: - Zyrtec - Singulair - Solu Medrol - morphine sulfate - Toradol - morphine IV - Lopressor - Atrovent - Lidocaine - Protonix - Narcan - Xopenex - Tylenol - doxycycline - Senokot S - Bacitracin ASSESSMENT AND PLAN: This is a 44-year-old female with over 25 pack year history of smoking, no prior diagnosis of chronic obstructive pulmonary disease (COPD) or emphysema, presented to her doctor due to right leg pain and found to have right iliac wing lesion. She was sent to orthopedic surgery and status post biopsy showing a metastatic adenocarcinoma of the lung, mucinous type with lesions in the right iliac wing eroding into the sacrum. The patient was seen by Dr. Pang and referred to radiation oncology for urgent radiation. She was marked yesterday. She presented to the emergency room with a 3 week history of worsening dyspnea on exertion, unable to move from room to room without significant distress. The patient was found to be having expiratory wheezing and COPD exacerbation and has been admitted for the following issues: 1. Acute COPD exacerbation. on IV Solu Medrol, antibiotics, nebulizer treatments and supplemental oxygen. 2. Pulmonary embolism. On Lovenox 1 mg per kg secondary to adenocarcinoma of the lung and hypercoagulable state. 3. Lung cancer, adenocarcinoma of the lung, stage IV. Mucinous type with metastatic lesion to the right iliac wing and eroding into the sacrum with difficulty ambulating due to severe pain. The patient was seen by Dr. Zendejas and marked with plans for radiation on Monday. The patient is high risk of CO2 retention due to PE, lung cancer and COPD exacerbation, therefore for pain control, pain management has been consulted. Per YANELY Carrion from the pain management service, the patient may benefit from MSIR 15 mg twice a day. The patient has had no relief from this and this has been increased to 30 mg by mouth twice a day with IV morphine, Narcan as needed, and will be discontinued should the patient be found to have respiratory distress with respiratory rate less than 12 or altered mental status and obtundation. 4. Adenocarcinoma of the lung, mucinous type with metastatic lesions to the right iliac wing and eroding into the sacrum, stage IV, poor overall prognosis, radiation oncology was consulted for urgent radiation and pain control. She is managed as outpatient by Dr. Kavya Pang, who will determine the rest of her management when she is discharged. 5. Debility. The patient currently is not safe for hospital discharge and will be receiving radiation treatment on Monday. 6. Urinary retention, postvoid residual. Monitor with bladder scan if needed. 7. Sinus tachycardia secondary to PE, respiratory distress, COPD and lung cancer. Has no hemodynamic compromise. TSH is normal. rechecking ekg to rule out svt, mat. increased metoprolol to 25 mg x1. before resuming scheduled dose at higher doses, need to make sure she does not develop bronchospasm. 8. Cancer cachexia. Nutritional consultation for supplemental nutrition. Currently on three times a day Boost. DD: ALBA GANT MD 06/21/19831 DT: RAY 06/21/19839 DS: JHONATAN 06/22/191637 <Electronically signed by ALBA GANT MD> 06/22/191637 DS2: [~ rep ct labl] VS, I&O, 24H, Fishbone Vital Signs/I&O Vital Signs Date Time Temp Pulse Resp B/P (MAP) Pulse Ox O2 Delivery O2 Flow Rate FiO2 06/23/19 17:07 147 128/93 06/23/19 14:48 96 Nasal Cannula 5.0 06/23/19 14:00 97.7 19 I&O- Last 24 Hours up to 6 AM 06/23/19 06:00 Intake Total 820 ml Output Total 1020 ml Balance -200 ml Laboratory Data 24H LABS Laboratory Tests 2 06/23/19 06:06: Immature Granulocyte % (Auto) 0.6, White Blood Count 14.7H, Red Blood Count 3.53L, Hemoglobin 11.7L, Hematocrit 34.6L, Mean Corpuscular Volume 98.0H, Mean Corpuscular Hemoglobin 33.1H, Mean Corpuscular Hemoglobin Concent 33.8, Red Cell Distribution Width 15.9H, Platelet Count 557H, Neutrophils (%) (Auto) 92.4H, Lymphocytes (%) (Auto) 1.8L, Monocytes (%) (Auto) 5.1H, Eosinophils (%) (Auto) 0.0, Basophils (%) (Auto) 0.1, Neutrophils # (Auto) 13.6H, Lymphocytes # (Auto) 0.3L, Monocytes # (Auto) 0.8, Eosinophils # (Auto) 0.0, Basophils # (Auto) 0.0, Nucleated Red Blood Cells % (auto) 0.0, Anion Gap 6L, Glomerular Filtration Rate > 60.0, Blood Urea Nitrogen 21H, Creatinine 0.30L, Sodium Level 137, Potassium Level 3.5, Chloride Level 98, Carbon Dioxide Level 33H, Calcium Level 9.3 CBC/BMP Laboratory Tests 06/23/19 06:06 Red Blood Count 3.53 L, Mean Corpuscular Volume 98.0 H, Mean Corpuscular Hemoglobin 33.1 H, Mean Corpuscular Hemoglobin Concent 33.8, Red Cell Distribution Width 15.9 H, Neutrophils (%) (Auto) 92.4 H, Lymphocytes (%) (Auto) 1.8 L, Monocytes (%) (Auto) 5.1 H, Eosinophils (%) (Auto) 0.0, Basophils (%) (Auto) 0.1, Neutrophils # (Auto) 13.6 H, Lymphocytes # (Auto) 0.3 L, Monocytes # (Auto) 0.8, Eosinophils # (Auto) 0.0, Basophils # (Auto) 0.0, Calcium Level 9.3 Microbiology Microbiology 06/19/19 Blood Culture - Preliminary, Resulted No Growth after 72 hours. All specime... 06/19/19 Blood Culture - Preliminary, Resulted No Growth after 72 hours. All specime... 06/22/19 Respiratory Virus Panel (PCR) ([facility]) - Final, Complete ALBA GANT MD Jun 23, 2019 17:24
[2019-06-23] MEDS: diltiaZEM 125 MG in NS 100 ML IV SCH (18:45)
--- NOTE | 2019-06-23 23:49 | ECGEPIP ---
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
[2019-06-24] VITALS (16 sets, daily range): BP systolic 115–160; BP diastolic 72–89; O2SAT 83–100
[2019-06-24] MEDS: LEVALBUTEROL 1.25 MG/0.5 ML CONCENTRATE NEB INH PRN ×3 (01:16→18:30)
[2019-06-24] MEDS: methylPREDNISolone INJ 125 MG/2 ML VIAL (J2930) IV SCH ×4 (03:57→21:01)
[2019-06-24] MEDS: DOXYCYCLINE HYCLATE 100 MG in D5W MINI-BAG PLUS 100 ML IV SCH ×2 (03:58→15:51)
[2019-06-24] MEDS: KETOROLAC 30 MG/ML VIAL (J1885) IV SCH ×4 (03:58→21:01)
[2019-06-24] MEDS: MORPHINE 4 MG/ML 1ML VIAL/SYRINGE (J2270) IV PRN ×5 (04:47→23:01)
[2019-06-24] MEDS: SLF 3 ML SYR IV SCH ×3 (05:28→21:03)
[2019-06-24 05:37] LABS: BASO % 0.1 % (0.0-1.0); HEMATOCRIT 34.1 % (36.0-47.0); HEMOGLOBIN 11.5 g/dl (12.0-15.5); LYMPH # 0.4 10^3/uL (1.5-5.0); LYMPH % 2.6 % (24.0-44.0); MEAN CORPUSCULAR HEMOGLOBIN 32.6 pg (27.0-33.0); MEAN CORPUSCULAR HGB CONC 33.7 g/dl (32.0-36.5); MEAN CORPUSCULAR VOLUME 96.6 fl (80.0-96.0); MONO % 6.5 % (0.0-5.0); NEUTROPHILS # 13.8 10^3/uL (1.5-8.5); NEUTROPHILS % 90.3 % (36.0-66.0); PLATELET COUNT, AUTOMATED 578 10^3/uL (150-450); RED BLOOD COUNT 3.53 10^6/uL (4.00-5.40); WHITE BLOOD COUNT 15.3 10^3/uL (4.0-10.0)
[2019-06-24 05:58] LABS: BLOOD UREA NITROGEN 22 MG/DL (7-18); CALCIUM LEVEL 8.6 MG/DL (8.5-10.1); CARBON DIOXIDE LEVEL 33 MEQ/L (21-32); CHLORIDE LEVEL 99 MEQ/L (98-107); GLOMERULAR FILTRATION RATE > 60.0 (>58); GLUCOSE, FASTING 138 MG/DL (70-100); POTASSIUM SERUM 3.7 MEQ/L (3.5-5.1); SODIUM LEVEL 139 MEQ/L (136-145)
[2019-06-24] MEDS: FAMOTIDINE 20 MG TAB PO SCH ×2 (08:17→21:01)
[2019-06-24] MEDS: MONTELUKAST 10 MG TAB PO SCH (08:17)
[2019-06-24] MEDS: CETIRIZINE (ZyrTEC) 10 MG TAB PO SCH (08:17)
[2019-06-24] MEDS: MORPHINE 30 MG TAB **MSIR PO SCH ×2 (08:17→21:01)
[2019-06-24] MEDS: BACITRACIN OINT 30GM TOP SCH ×2 (08:19→21:02)
[2019-06-24] MEDS: IPRATROPIUM 0.02% SOLN 0.5MG/2.5 ML NEB INH SCH ×5 (08:39→22:47)
[2019-06-24] MEDS: LEVALBUTEROL 1.25 MG/0.5 ML CONCENTRATE NEB INH SCH ×5 (08:39→22:47)
[2019-06-24] MEDS: guaiFENesin ER 600 MG TAB PO SCH ×2 (09:11→21:00)
[2019-06-24] MEDS: ENOXAPARIN 60 MG/0.6 ML SYR (J1650) SC SCH ×2 (10:50→21:00)
[2019-06-24] MEDS: diltiaZEM 125 MG in NS 100 ML IV SCH (15:51)
[2019-06-24 16:54] LABS: NT-PRO BNP 482 PG/ML (<125)
--- NOTE | 2019-06-24 17:07 | REP ---
Portable chest, 04:42 p.m., single AP view with the patient upright: Comparison is the portable chest dated 06/19/2019. Numerous confluent nodular densities are again identified throughout the lung hammer diffusely, similar to the prior study. In addition, there is a new focal developing superimposed density peripherally in the right lung. There are no other interval changes. There are no pleural effusions. Cardiac size is normal. Impression: New developing focal density peripherally in the right lung superimposed upon numerous bilateral confluent densities as described. Electronically Signed by Ramón Liang MD 06/24/2019 04:58 P
--- NOTE | 2019-06-24 22:12 | IPNPDOC ---
Date Seen The patient was seen on 06/24/19. Progress Note SUBJECTIVE: due to tachycardia, increased sob, pt was transferred to pcu. s/p iv cardizem but remained sinus. on cardizem po. purdy, anxious, and tearful dry cough without fever or chills. cxr: increased densities with increased wbc, increased procalcitonin.right hip pain better on po meds. PHYSICAL EXAMINATION: VITAL SIGNS: pls see below GEN: 6-7 word conversational dyspnea. No pallor. No icterus. No cyanosis. Trachea is midline. Dry mucous membranes with chapped lips. LUNGS: Diminished. Bilateral expiratory wheezing. Prolonged expiration. No tripod positioning. Positive use of respiratory accessory muscles without tracheal deviation. HEART: S1, S2. Sinus tachycardia. No murmurs, rubs or gallops. ABDOMEN: Soft, nontender, nondistended. Positive bowel sounds. No rebound or guarding or hepatosplenomegaly. The patient continues to have some erythema, bruising, and tender right iliac post lumbar puncture lesion, which is not fluctuant and not indurated. EXTREMITIES: No cyanosis, clubbing or any pitting edema. HOSPITAL MEDICATIONS: reviewed. ASSESSMENT AND PLAN: This is a 44-year-old female with over 25 pack year history of smoking, no prior diagnosis of chronic obstructive pulmonary disease (COPD) or emphysema, presented to her doctor due to right leg pain and found to have right iliac wing lesion. She was sent to orthopedic surgery and status post biopsy showing a metastatic adenocarcinoma of the lung, mucinous type with lesions in the right iliac wing eroding into the sacrum. The patient was seen by Dr. Pang and referred to radiation oncology for urgent radiation. She was marked yesterday. She presented to the emergency room with a 3 week history of worsening dyspnea on exertion, unable to move from room to room without significant distress. The patient was found to be having expiratory wheezing and COPD exacerbation and has been admitted for the following issues: Acute COPD exacerbation. on IV Solu Medrol, antibiotics, nebulizer treatments and supplemental oxygen. Acute hypoxic respiratory failure requiring oxygen . due to pe, lung ca, copd exacerbation,and possible postobstructive pneumonia with increased infiltrates on cxr. on iv abx. zosyn added. check sputum cx. and mrsa screen Steroid induced leukocytosis: cxr repeated due to worsening hypoxia with new infiltrates. ddx: worsening lung ca vs. postobstructive pna. broader spectrum abx due to abn procalcitonin. check sputum cx. Pulmonary embolism. On Lovenox 1 mg per kg secondary to adenocarcinoma of the lung and hypercoagulable state. Lung cancer, adenocarcinoma of the lung, stage IV. Mucinous type with metastatic lesion to the right iliac wing and eroding into the sacrum with difficulty ambulating due to severe pain. The patient was seen by Dr. Zendejas and marked with plans for radiation on Monday. The patient is high risk of CO2 retention due to PE, lung cancer and COPD exacerbation, therefore for pain control, pain management has been consulted. Per YANELY Carrion from the pain management service, the patient may benefit from MSIR 15 mg twice a day. The patient has had no relief from this and this has been increased to 30 mg by mouth twice a day with IV morphine, Narcan as needed, and will be discontinued should the patient be found to have respiratory distress with respiratory rate less than 12 or altered mental status and obtundation. Adenocarcinoma of the lung, mucinous type with metastatic lesions to the right iliac wing and eroding into the sacrum, stage IV, poor overall prognosis, radiation oncology was consulted for urgent radiation and pain control. She is managed as outpatient by Dr. Kavya Pang, who will determine the rest of her management when she is discharged. Debility. The patient currently is not safe for hospital discharge and will be receiving radiation treatment on Monday. Urinary retention, postvoid residual. Monitor with bladder scan if needed. Sinus tachycardia secondary to PE, respiratory distress, COPD and lung cancer. Has no hemodynamic compromise. TSH is normal. s/p cardizem gtt. on cardizem po q6hrs. Cancer cachexia. Nutritional consultation for supplemental nutrition. Currently on three times a day Boost. VS, I&O, 24H, Fishbone Vital Signs/I&O Vital Signs Date Time Temp Pulse Resp B/P (MAP) Pulse Ox O2 Delivery O2 Flow Rate FiO2 06/24/19 21:01 18 06/24/19 21:00 96 Nasal Cannula 5.0 06/24/19 20:00 98.0 118 115/72 (86) I&O- Last 24 Hours up to 6 AM 06/24/19 06:00 Intake Total 590 ml Output Total 650 ml Balance -60 ml Laboratory Data 24H LABS Laboratory Tests 2 06/24/19 05:05: Immature Granulocyte % (Auto) 0.5, White Blood Count 15.3H, Red Blood Count 3.53L, Hemoglobin 11.5L, Hematocrit 34.1L, Mean Corpuscular Volume 96.6H, Mean Corpuscular Hemoglobin 32.6, Mean Corpuscular Hemoglobin Concent 33.7, Red Cell Distribution Width 15.9H, Platelet Count 578H, Neutrophils (%) (Auto) 90.3H, Lymphocytes (%) (Auto) 2.6L, Monocytes (%) (Auto) 6.5H, Eosinophils (%) (Auto) 0.0, Basophils (%) (Auto) 0.1, Neutrophils # (Auto) 13.8H, Lymphocytes # (Auto) 0.4L, Monocytes # (Auto) 1.0H, Eosinophils # (Auto) 0.0, Basophils # (Auto) 0.0, Nucleated Red Blood Cells % (auto) 0.0, Anion Gap 7L, Glomerular Filtration Rate > 60.0, Blood Urea Nitrogen 22H, Creatinine 0.30L, Sodium Level 139, Potassium Level 3.7, Chloride Level 99, Carbon Dioxide Level 33H, Calcium Level 8.6, QW-Eyu-D-Type Natriuretic Peptide 482H CBC/BMP Laboratory Tests 06/24/19 05:05 Red Blood Count 3.53 L, Mean Corpuscular Volume 96.6 H, Mean Corpuscular Hemoglobin 32.6, Mean Corpuscular Hemoglobin Concent 33.7, Red Cell Distribution Width 15.9 H, Neutrophils (%) (Auto) 90.3 H, Lymphocytes (%) (Auto) 2.6 L, Monocytes (%) (Auto) 6.5 H, Eosinophils (%) (Auto) 0.0, Basophils (%) (Auto) 0.1, Neutrophils # (Auto) 13.8 H, Lymphocytes # (Auto) 0.4 L, Monocytes # (Auto) 1.0 H, Eosinophils # (Auto) 0.0, Basophils # (Auto) 0.0, Calcium Level 8.6 Microbiology Microbiology 06/19/19 Blood Culture - Final, Complete NO GROWTH AFTER 5 DAYS 06/19/19 Blood Culture - Final, Complete NO GROWTH AFTER 5 DAYS 06/22/19 Respiratory Virus Panel (PCR) ([facility]) - Final, Complete ALBA GANT MD Jun 24, 2019 22:07
[2019-06-24] MEDS: PIPERACILLIN/TAZOBACTAM SOD 3.375 GM in D5W MINI-BAG PLUS 50 ML IV SCH (23:00)
[2019-06-25] VITALS (21 sets, daily range): BP systolic 105–145; BP diastolic 62–78; O2SAT 88–99
[2019-06-25] MEDS: DOXYCYCLINE HYCLATE 100 MG in D5W MINI-BAG PLUS 100 ML IV SCH ×2 (03:04→15:53)
[2019-06-25] MEDS: methylPREDNISolone INJ 125 MG/2 ML VIAL (J2930) IV SCH ×4 (03:04→21:09)
[2019-06-25] MEDS: KETOROLAC 30 MG/ML VIAL (J1885) IV SCH ×4 (03:04→21:11)
[2019-06-25] MEDS: LEVALBUTEROL 1.25 MG/0.5 ML CONCENTRATE NEB INH SCH ×5 (03:22→19:49)
[2019-06-25] MEDS: IPRATROPIUM 0.02% SOLN 0.5MG/2.5 ML NEB INH SCH ×4 (03:22→19:49)
[2019-06-25] MEDS: MORPHINE 4 MG/ML 1ML VIAL/SYRINGE (J2270) IV PRN ×4 (04:22→19:45)
[2019-06-25] MEDS: PIPERACILLIN/TAZOBACTAM SOD 3.375 GM in D5W MINI-BAG PLUS 50 ML IV SCH ×4 (04:22→22:04)
[2019-06-25 05:39] LABS: BASO % 0.1 % (0.0-1.0); HEMATOCRIT 35.9 % (36.0-47.0); LYMPH % 1.3 % (24.0-44.0); MEAN CORPUSCULAR HEMOGLOBIN 33.1 pg (27.0-33.0); MEAN CORPUSCULAR HGB CONC 33.4 g/dl (32.0-36.5); MEAN CORPUSCULAR VOLUME 99.2 fl (80.0-96.0); MONO # 0.9 10^3/uL (0.0-0.8); MONO % 6.4 % (0.0-5.0); NEUTROPHILS # 12.8 10^3/uL (1.5-8.5); NEUTROPHILS % 91.6 % (36.0-66.0); PLATELET COUNT, AUTOMATED 548 10^3/uL (150-450); RED BLOOD COUNT 3.62 10^6/uL (4.00-5.40)
[2019-06-25 05:41] LABS: LYMPH # 0.2 10^3/uL (1.5-5.0)
[2019-06-25] MEDS: SLF 3 ML SYR IV SCH ×3 (05:54→22:04)
[2019-06-25 06:00] LABS: BLOOD UREA NITROGEN 21 MG/DL (7-18); CALCIUM LEVEL 8.9 MG/DL (8.5-10.1); CARBON DIOXIDE LEVEL 34 MEQ/L (21-32); CHLORIDE LEVEL 96 MEQ/L (98-107); CREATININE FOR GFR 0.46 MG/DL (0.55-1.30); GLOMERULAR FILTRATION RATE > 60.0 (>58); GLUCOSE, FASTING 235 MG/DL (70-100); POTASSIUM SERUM 3.4 MEQ/L (3.5-5.1); SODIUM LEVEL 136 MEQ/L (136-145)
[2019-06-25] MEDS ORDERED: POTASSIUM CHLORIDE 10 MEQ SR TABLET PO ONE (06:30)
[2019-06-25] MEDS ORDERED: POTASSIUM CHLORIDE 10% LIQ 20 MEQ/15 ML UDC PO ONE (07:00)
[2019-06-25] MEDS ORDERED: FUROSEMIDE 40 MG/4 ML VIAL (J1940) IV ONE (08:00)
[2019-06-25] MEDS: MONTELUKAST 10 MG TAB PO SCH (09:24)
[2019-06-25] MEDS: MORPHINE 30 MG TAB **MSIR PO SCH ×2 (09:24→22:04)
[2019-06-25] MEDS: CETIRIZINE (ZyrTEC) 10 MG TAB PO SCH (09:24)
[2019-06-25] MEDS: FAMOTIDINE 20 MG TAB PO SCH ×2 (09:24→21:09)
[2019-06-25] MEDS: guaiFENesin ER 600 MG TAB PO SCH ×2 (09:24→21:00)
[2019-06-25] MEDS: ENOXAPARIN 60 MG/0.6 ML SYR (J1650) SC SCH ×2 (09:25→21:09)
[2019-06-25] MEDS: BACITRACIN OINT 30GM TOP SCH ×2 (09:26→21:20)
[2019-06-25] MEDS: LEVALBUTEROL 1.25 MG/0.5 ML CONCENTRATE NEB INH PRN (11:49)
--- NOTE | 2019-06-25 12:06 | IPNPDOC ---
Text Note Date of Service The patient was seen on 06/25/19. NOTE SUBJECTIVE: Says breathing is a little better, still on 5 liters of oxygen. Still remains tachycardic to 110s , sinus. N fever or chills, no chest pain. No nausea or vomiting or dairreha, started RT to the illiac bone. Working with PT. PHYSICAL EXAMINATION: VITAL SIGNS: pls see below GEN: Comfortable sitting up in bed. HEENT: Normocephalic , atraumatic , No pallor. No icterus. No cyanosis. Trachea is midline. Mucus membranes moist. Neck: No JVD no thyromegaly LUNGS: Diminished. Bilateral expiratory wheezing. coarse breath sounds. Prolonged expiration. HEART: S1, S2. Sinus tachycardia. No murmurs, rubs or gallops. ABDOMEN: Soft, nontender, nondistended. Positive bowel sounds. No rebound or guarding or hepatosplenomegaly. The patient continues to have some erythema, bruising, and tender right iliac post lumbar puncture lesion, which is not fluctuant and not indurated. EXTREMITIES: No cyanosis or clubbing, there is bilateral 1+ edema SKIN: No rash or breakdown. The patient continues to have some erythema, bruising, and tender right iliac post lumbar puncture lesion, which is not fluctuant and not indurated. NEURO: no focal neurodeficits, awake, alert , oriented x 3 HOSPITAL MEDICATIONS: reviewed. ASSESSMENT AND PLAN: This is a 44-year-old female with over 25 pack year history of smoking, no prior diagnosis of chronic obstructive pulmonary disease (COPD) or emphysema, presented to her doctor due to right leg pain and found to have right iliac wing lesion. She was sent to orthopedic surgery and status post biopsy showing a metastatic adenocarcinoma of the lung, mucinous type with lesions in the right iliac wing eroding into the sacrum. The patient was seen by Dr. Pang and referred to radiation oncology for urgent radiation. She was marked yesterday. She presented to the emergency room with a 3 week history of worsening dyspnea on exertion, unable to move from room to room without significant distress. The patient was found to be having expiratory wheezing and COPD exacerbation and has been admitted for the following issues: Acute COPD exacerbation. on IV Solu Medrol, antibiotics, nebulizer treatments and supplemental oxygen. singulair, cetirizine Acute hypoxic respiratory failure . due to PE, lung ca, copd ex. and possible postobstructive pneumonia with increased infiltrates on cxr. on iv abx. zosyn and doxy. Post obstructive pneumonia continue zosyn and doxy Leukocytosis: ddx: worsening lung ca vs. postobstructive pna Vs steroid induced. Procalcitonin from 06/20 was only 1.47 Pulmonary embolism. On Lovenox 1 mg per kg secondary to adenocarcinoma of the lung and hypercoagulable state. Lung cancer adenocarcinoma of the lung, stage IV. Mucinous type with metastatic lesion to the right iliac wing and eroding into the sacrum with difficulty ambulating due to severe pain. started on RT on 06/24 She is managed as outpatient by Dr. Kavya Pang, who will determine the rest of her management when she is discharged. Pain Control: seen by pain management MSIR 30 mg by mouth twice a day with IV morphine, Ketorolac Narcan as needed, and will be discontinued should the patient be found to have respiratory distress with respiratory rate less than 12 or altered mental status and obtundation. Urinary retention, postvoid residual. Monitor with bladder scan if needed. Sinus tachycardia secondary to PE, respiratory distress, COPD and lung cancer. on diltiazem Cancer cachexia. Nutritional consultation for supplemental nutrition. Currently on three times a day Boost. VS,Fishbone, I+O VS, Fishbone, I+O Laboratory Tests 06/25/19 05:12 Red Blood Count 3.62 L, Mean Corpuscular Volume 99.2 H, Mean Corpuscular Hemoglobin 33.1 H, Mean Corpuscular Hemoglobin Concent 33.4, Red Cell Distribution Width 15.7 H, Neutrophils (%) (Auto) 91.6 H, Lymphocytes (%) (Auto) 1.3 L, Monocytes (%) (Auto) 6.4 H, Eosinophils (%) (Auto) 0.0, Basophils (%) (Auto) 0.1, Neutrophils # (Auto) 12.8 H, Lymphocytes # (Auto) 0.2 L, Monocytes # (Auto) 0.9 H, Eosinophils # (Auto) 0.0, Basophils # (Auto) 0.0, Calcium Level 8.9 Vital Signs Date Time Temp Pulse Resp B/P (MAP) Pulse Ox O2 Delivery O2 Flow Rate FiO2 06/25/19 09:54 14 06/25/19 09:00 99 Nasal Cannula 5.0 06/25/19 08:00 97.9 104 118/78 (91) I&O- Last 24 Hours up to 6 AM 06/25/19 06:00 Intake Total 1391 ml Output Total 1040 ml Balance 351 ml REJI MORTON MD Jun 25, 2019 12:06
[2019-06-26] MEDS: methylPREDNISolone INJ 125 MG/2 ML VIAL (J2930) IV SCH ×2 (03:19→08:48)
[2019-06-26] MEDS: KETOROLAC 30 MG/ML VIAL (J1885) IV SCH (03:20)
[2019-06-26] MEDS: DOXYCYCLINE HYCLATE 100 MG in D5W MINI-BAG PLUS 100 ML IV SCH (03:33)
[2019-06-26] MEDS: IPRATROPIUM 0.02% SOLN 0.5MG/2.5 ML NEB INH SCH ×6 (04:00→20:31)
[2019-06-26] MEDS: LEVALBUTEROL 1.25 MG/0.5 ML CONCENTRATE NEB INH SCH ×6 (04:00→20:31)
[2019-06-26] MEDS: PIPERACILLIN/TAZOBACTAM SOD 3.375 GM in D5W MINI-BAG PLUS 50 ML IV SCH ×4 (04:55→21:20)
[2019-06-26] MEDS: MORPHINE 4 MG/ML 1ML VIAL/SYRINGE (J2270) IV PRN ×2 (05:12→09:55)
[2019-06-26 06:00] VITALS: BP 111/79
[2019-06-26 06:14] LABS: BASO % 0.1 % (0.0-1.0); HEMATOCRIT 32.7 % (36.0-47.0); HEMOGLOBIN 11.1 g/dl (12.0-15.5); LYMPH # 0.3 10^3/uL (1.5-5.0); LYMPH % 1.6 % (24.0-44.0); MEAN CORPUSCULAR HEMOGLOBIN 32.5 pg (27.0-33.0); MEAN CORPUSCULAR HGB CONC 33.9 g/dl (32.0-36.5); MEAN CORPUSCULAR VOLUME 95.6 fl (80.0-96.0); MONO # 1.3 10^3/uL (0.0-0.8); MONO % 7.9 % (0.0-5.0); NEUTROPHILS # 15.1 10^3/uL (1.5-8.5); NEUTROPHILS % 89.7 % (36.0-66.0); PLATELET COUNT, AUTOMATED 526 10^3/uL (150-450); RED BLOOD COUNT 3.42 10^6/uL (4.00-5.40); WHITE BLOOD COUNT 16.8 10^3/uL (4.0-10.0)
[2019-06-26] MEDS: SLF 3 ML SYR IV SCH ×3 (06:17→21:19)
[2019-06-26 06:47] LABS: BLOOD UREA NITROGEN 20 MG/DL (7-18); CALCIUM LEVEL 8.9 MG/DL (8.5-10.1); CARBON DIOXIDE LEVEL 35 MEQ/L (21-32); CHLORIDE LEVEL 96 MEQ/L (98-107); CREATININE FOR GFR 0.31 MG/DL (0.55-1.30); GLOMERULAR FILTRATION RATE > 60.0 (>58); GLUCOSE, FASTING 137 MG/DL (70-100); POTASSIUM SERUM 3.5 MEQ/L (3.5-5.1); SODIUM LEVEL 138 MEQ/L (136-145)
[2019-06-26 07:36] VITALS: O2SAT 98
[2019-06-26] MEDS: MORPHINE 30 MG TAB **MSIR PO SCH ×2 (08:46→21:17)
[2019-06-26] MEDS: CETIRIZINE (ZyrTEC) 10 MG TAB PO SCH (08:47)
[2019-06-26] MEDS: MONTELUKAST 10 MG TAB PO SCH (08:47)
[2019-06-26] MEDS: FAMOTIDINE 20 MG TAB PO SCH ×2 (08:48→21:18)
[2019-06-26] MEDS: ENOXAPARIN 60 MG/0.6 ML SYR (J1650) SC SCH ×2 (08:51→21:18)
[2019-06-26] MEDS: guaiFENesin ER 600 MG TAB PO SCH ×2 (08:52→21:00)
[2019-06-26] MEDS: BACITRACIN OINT 30GM TOP SCH ×2 (08:53→21:19)
--- NOTE | 2019-06-26 12:39 | IPNPDOC ---
Text Note Date of Service The patient was seen on 06/26/19. NOTE SUBJECTIVE: Says breathing is a little better, still on 5 liters of oxygen. Still remains tachycardic to 110s , sinus. No fever or chills, no chest pain. No nausea or vomiting or dairreha, started RT to the iliac bone. Working with PT. PHYSICAL EXAMINATION: VITAL SIGNS: pls see below GEN: Comfortable sitting up in bed. HEENT: Normocephalic , atraumatic , No pallor. No icterus. No cyanosis. Trachea is midline. Mucus membranes moist. Neck: No JVD no thyromegaly LUNGS: Diminished. Bilateral expiratory wheezing. coarse breath sounds. Prolonged expiration. HEART: S1, S2. Sinus tachycardia. No murmurs, rubs or gallops. ABDOMEN: Soft, nontender, nondistended. Positive bowel sounds. No rebound or guarding or hepatosplenomegaly. The patient continues to have some erythema, bruising, and tender right iliac post lumbar puncture lesion, which is not fluctuant and not indurated. EXTREMITIES: No cyanosis or clubbing, there is bilateral 1+ edema SKIN: No rash or breakdown. The patient continues to have some erythema, bruising, and tender right iliac post lumbar puncture lesion, which is not fluctuant and not indurated. NEURO: no focal neurodeficits, awake, alert , oriented x 3 HOSPITAL MEDICATIONS: reviewed. ASSESSMENT AND PLAN: This is a 44-year-old female with over 25 pack year history of smoking, no prior diagnosis of chronic obstructive pulmonary disease (COPD) or emphysema, presented to her doctor due to right leg pain and found to have right iliac wing lesion. She was sent to orthopedic surgery and status post biopsy showing a metastatic adenocarcinoma of the lung, mucinous type with lesions in the right iliac wing eroding into the sacrum. The patient was seen by Dr. Pang and referred to radiation oncology for urgent radiation. She was marked yesterday. She presented to the emergency room with a 3 week history of worsening dyspnea on exertion, unable to move from room to room without significant distress. The patient was found to be having expiratory wheezing and COPD exacerbation and has been admitted for the following issues: Acute COPD exacerbation. on IV Solu Medrol, antibiotics, nebulizer treatments and supplemental oxygen. singulair, cetirizine Acute hypoxic respiratory failure . due to PE, lung ca, copd ex. and possible postobstructive pneumonia with increased infiltrates on cxr. on iv abx. zosyn and doxy. Post obstructive pneumonia continue zosyn and doxy Leukocytosis: ddx: worsening lung ca vs. postobstructive pna Vs steroid induced. Procalcitonin from 06/20 was only 1.47 Pulmonary embolism. On Lovenox 1 mg per kg secondary to adenocarcinoma of the lung and hypercoagulable state. Lung cancer adenocarcinoma of the lung, stage IV. Mucinous type with metastatic lesion to the right iliac wing and eroding into the sacrum with difficulty ambulating due to severe pain. started on RT on 06/24 She is managed as outpatient by Dr. Kavya Pang, who will determine the rest of her management when she is discharged. Pain Control: seen by pain management MSIR 30 mg by mouth twice a day with IV morphine, Ketorolac Narcan as needed, and will be discontinued should the patient be found to have respiratory distress with respiratory rate less than 12 or altered mental status and obtundation. Urinary retention, postvoid residual. Monitor with bladder scan if needed. Sinus tachycardia secondary to PE, respiratory distress, COPD and lung cancer. on diltiazem Cancer cachexia. Nutritional consultation for supplemental nutrition. Currently on three times a day Boost. VS,Fishbone, I+O VS, Fishbone, I+O Laboratory Tests 06/26/19 05:45 Red Blood Count 3.42 L, Mean Corpuscular Volume 95.6, Mean Corpuscular Hemoglobin 32.5, Mean Corpuscular Hemoglobin Concent 33.9, Red Cell Distribution Width 15.4 H, Neutrophils (%) (Auto) 89.7 H, Lymphocytes (%) (Auto) 1.6 L, Monocytes (%) (Auto) 7.9 H, Eosinophils (%) (Auto) 0.0, Basophils (%) (Auto) 0.1, Neutrophils # (Auto) 15.1 H, Lymphocytes # (Auto) 0.3 L, Monocytes # (Auto) 1.3 H, Eosinophils # (Auto) 0.0, Basophils # (Auto) 0.0, Calcium Level 8.9 Vital Signs Date Time Temp Pulse Resp B/P (MAP) Pulse Ox O2 Delivery O2 Flow Rate FiO2 06/26/19 10:06 16 06/26/19 09:55 4.0 06/26/19 07:36 98 Nasal Cannula 06/26/19 06:00 97.8 97 111/79 (90) I&O- Last 24 Hours up to 6 AM 06/26/19 06:00 Intake Total 1610 ml Output Total 1800 ml Balance -190 ml REJI MORTON MD Jun 26, 2019 12:39
[2019-06-26] MEDS ORDERED: FUROSEMIDE 40 MG/4 ML VIAL (J1940) IV ONE (12:45)
[2019-06-26] MEDS: SENOKOT S TAB PO SCH ×2 (13:34→21:00)
[2019-06-26 14:00] VITALS: O2SAT 95
[2019-06-26 14:11] VITALS: BP 109/74
[2019-06-26] MEDS: methylPREDNISolone INJ 40 MG/1 ML VIAL (J2920) IV SCH ×2 (16:11→21:18)
[2019-06-26] MEDS: oxyCODONE 5MG TAB PO PRN ×2 (17:05→23:14)
[2019-06-26] MEDS: DOXYCYCLINE HYCLATE 100 MG TAB PO SCH (21:17)
[2019-06-26 22:00] VITALS: BP 115/75
[2019-06-27] VITALS (8 sets, daily range): BP systolic 92–120; BP diastolic 69–85; O2SAT 94–98
[2019-06-27] MEDS: ACETAMINOPHEN 500 MG TAB PO PRN (01:35)
[2019-06-27] MEDS: methylPREDNISolone INJ 40 MG/1 ML VIAL (J2920) IV SCH ×3 (03:28→21:06)
[2019-06-27] MEDS: PIPERACILLIN/TAZOBACTAM SOD 3.375 GM in D5W MINI-BAG PLUS 50 ML IV SCH ×4 (03:28→21:48)
[2019-06-27] MEDS: SLF 3 ML SYR IV SCH ×3 (05:13→21:48)
[2019-06-27] MEDS: IPRATROPIUM 0.02% SOLN 0.5MG/2.5 ML NEB INH SCH ×6 (07:10→22:41)
[2019-06-27] MEDS: LEVALBUTEROL 1.25 MG/0.5 ML CONCENTRATE NEB INH SCH ×6 (07:10→22:41)
[2019-06-27 07:17] LABS: BASO % 0.2 % (0.0-1.0); HEMOGLOBIN 11.4 g/dl (12.0-15.5); LYMPH % 1.1 % (24.0-44.0); MEAN CORPUSCULAR HEMOGLOBIN 32.1 pg (27.0-33.0); MEAN CORPUSCULAR HGB CONC 33.5 g/dl (32.0-36.5); MEAN CORPUSCULAR VOLUME 95.8 fl (80.0-96.0); MONO # 1.4 10^3/uL (0.0-0.8); MONO % 7.4 % (0.0-5.0); NEUTROPHILS % 90.4 % (36.0-66.0); PLATELET COUNT, AUTOMATED 543 10^3/uL (150-450); RED BLOOD COUNT 3.55 10^6/uL (4.00-5.40); WHITE BLOOD COUNT 18.8 10^3/uL (4.0-10.0)
[2019-06-27 07:44] LABS: BLOOD UREA NITROGEN 16 MG/DL (7-18); CALCIUM LEVEL 8.8 MG/DL (8.5-10.1); CARBON DIOXIDE LEVEL 40 MEQ/L (21-32); CHLORIDE LEVEL 92 MEQ/L (98-107); CREATININE FOR GFR 0.36 MG/DL (0.55-1.30); GLOMERULAR FILTRATION RATE > 60.0 (>58); GLUCOSE, FASTING 133 MG/DL (70-100); POTASSIUM SERUM 3.2 MEQ/L (3.5-5.1); SODIUM LEVEL 135 MEQ/L (136-145)
[2019-06-27 07:50] LABS: LYMPH # 0.2 10^3/uL (1.5-5.0)
[2019-06-27] MEDS: SENOKOT S TAB PO SCH ×2 (08:37→21:06)
[2019-06-27] MEDS: MONTELUKAST 10 MG TAB PO SCH (08:38)
[2019-06-27] MEDS: CETIRIZINE (ZyrTEC) 10 MG TAB PO SCH (08:38)
[2019-06-27] MEDS: ENOXAPARIN 60 MG/0.6 ML SYR (J1650) SC SCH ×2 (08:38→21:06)
[2019-06-27] MEDS: DOXYCYCLINE HYCLATE 100 MG TAB PO SCH ×2 (08:38→21:06)
[2019-06-27] MEDS: MORPHINE 30 MG TAB **MSIR PO SCH ×2 (08:38→21:05)
[2019-06-27] MEDS: FAMOTIDINE 20 MG TAB PO SCH ×2 (08:38→21:06)
[2019-06-27] MEDS: BACITRACIN OINT 30GM TOP SCH ×2 (08:39→21:07)
[2019-06-27] MEDS: guaiFENesin ER 600 MG TAB PO SCH ×2 (09:37→21:00)
[2019-06-27] MEDS ORDERED: FUROSEMIDE 20 MG/2 ML VIAL (J1940) IV ONE (11:00)
--- NOTE | 2019-06-27 11:10 | IPNPDOC ---
Text Note Date of Service The patient was seen on 06/27/19. NOTE SUBJECTIVE: Says breathing is a little better, still on 5 liters of oxygen. Still remains tachycardic to 110s , sinus. No fever or chills, no chest pain. No nausea or vomiting or diarrhea, started RT to the iliac bone. Working with PT. She could not get the oxycodone this am when she was in severe pain as her blood pressure was in 90s. Will discuss with nursing to have a lower BP cut off for pain medications. PHYSICAL EXAMINATION: VITAL SIGNS: pls see below GEN: Comfortable sitting up in bed. HEENT: Normocephalic , atraumatic , No pallor. No icterus. No cyanosis. Trachea is midline. Mucus membranes moist. Neck: No JVD no thyromegaly LUNGS: Diminished. Bilateral expiratory wheezing. coarse breath sounds. Prolonged expiration. HEART: S1, S2. Sinus tachycardia. No murmurs, rubs or gallops. ABDOMEN: Soft, non tender, non distended. Positive bowel sounds. No rebound or guarding or hepatosplenomegaly. The patient continues to have some erythema, bruising, and tender right iliac post lumbar puncture lesion, which is not fluctuant and not indurated. EXTREMITIES: No cyanosis or clubbing, there is bilateral 1+ edema SKIN: No rash or breakdown. The patient continues to have some erythema, bruising, and tender right iliac post lumbar puncture lesion, which is not fluctuant and not indurated. NEURO: no focal neurodeficits, awake, alert , oriented x 3 HOSPITAL MEDICATIONS: reviewed. ASSESSMENT AND PLAN: This is a 44-year-old female with over 25 pack year history of smoking, no prior diagnosis of chronic obstructive pulmonary disease (COPD) or emphysema, presented to her doctor due to right leg pain and found to have right iliac wing lesion. She was sent to orthopedic surgery and status post biopsy showing a metastatic adenocarcinoma of the lung, mucinous type with lesions in the right iliac wing eroding into the sacrum. The patient was seen by Dr. Pang and referred to radiation oncology for urgent radiation. She was marked yesterday. She presented to the emergency room with a 3 week history of worsening dyspnea on exertion, unable to move from room to room without significant distress. The patient was found to be having expiratory wheezing and COPD exacerbation and has been admitted for the following issues: Acute COPD exacerbation. on IV Solu Medrol, antibiotics, nebulizer treatments and supplemental oxygen. singulair, cetirizine Acute hypoxic respiratory failure . due to PE, lung ca, copd ex. and possible postobstructive pneumonia with increased infiltrates on cxr. on iv abx. zosyn and doxy. Post obstructive pneumonia continue zosyn and doxy Leukocytosis: ddx: worsening lung ca with postobstructive pna and steroids Procalcitonin from 06/20 was only 1.47 Pulmonary embolism. On Lovenox 1 mg per kg secondary to adenocarcinoma of the lung and hypercoagulable state. Lung cancer adenocarcinoma of the lung, stage IV. Mucinous type with metastatic lesion to the right iliac wing and eroding into the sacrum with difficulty ambulating due to severe pain. started on RT on 06/24 She is managed as outpatient by Dr. Kavya Pang, who will determine the rest of her management when she is discharged. Pain Control: seen by pain management MSIR 30 mg by mouth twice a day with IV morphine, Ketorolac Narcan as needed, and will be discontinued should the patient be found to have respiratory distress with respiratory rate less than 12 or altered mental status and obtundation. Urinary retention, postvoid residual. Monitor with bladder scan if needed. Sinus tachycardia secondary to PE, respiratory distress, COPD and lung cancer. on diltiazem Cancer cachexia. Nutritional consultation for supplemental nutrition. Currently on three times a day Boost. VS,Fishbone, I+O VS, Fishbone, I+O Laboratory Tests 06/27/19 06:27 Red Blood Count 3.55 L, Mean Corpuscular Volume 95.8, Mean Corpuscular Hemoglobin 32.1, Mean Corpuscular Hemoglobin Concent 33.5, Red Cell Distribution Width 15.1 H, Neutrophils (%) (Auto) 90.4 H, Lymphocytes (%) (Auto) 1.1 L, Monocytes (%) (Auto) 7.4 H, Eosinophils (%) (Auto) 0.0, Basophils (%) (Auto) 0.2, Neutrophils # (Auto) 17.0 H, Lymphocytes # (Auto) 0.2 L, Monocytes # (Auto) 1.4 H, Eosinophils # (Auto) 0.0, Basophils # (Auto) 0.0, Calcium Level 8.8 Vital Signs Date Time Temp Pulse Resp B/P (MAP) Pulse Ox O2 Delivery O2 Flow Rate FiO2 06/27/19 09:08 17 06/27/19 06:10 107 100/72 (81) 98 5.0 06/27/19 05:18 97.6 06/27/19 02:36 Nasal Cannula I&O- Last 24 Hours up to 6 AM 06/27/19 06:00 Intake Total 1400 ml Output Total 2800 ml Balance -1400 ml REJI MORTON MD Jun 27, 2019 11:10
[2019-06-27] MEDS ORDERED: POTASSIUM CHLORIDE 10 MEQ SR TABLET PO ONE (12:00)
[2019-06-27] MEDS: POTASSIUM CHLORIDE 10% LIQ 20 MEQ/15 ML UDC PO SCH (12:37)
[2019-06-27] MEDS: oxyCODONE 5MG TAB PO PRN ×2 (14:04→17:59)
[2019-06-28 00:08] LABS: BODY FLUID CULTURE Not Indicated (.); LEGIONELLA ANTIGEN URINE Negative (Negative); ORGANISM ID Not indicated. (.); SPECIMEN SOURCE Urine (.); URINE STREP PNEUMONIAE ANTIGEN Negative (Negative)
[2019-06-28] MEDS: oxyCODONE 5MG TAB PO PRN ×4 (00:37→17:14)
[2019-06-28 00:44] VITALS: BP 104/70
[2019-06-28] MEDS: PIPERACILLIN/TAZOBACTAM SOD 3.375 GM in D5W MINI-BAG PLUS 50 ML IV SCH ×4 (04:02→22:26)
[2019-06-28] MEDS: SLF 3 ML SYR IV SCH ×3 (04:02→21:24)
[2019-06-28] MEDS: IPRATROPIUM 0.02% SOLN 0.5MG/2.5 ML NEB INH SCH ×5 (05:03→18:22)
[2019-06-28] MEDS: LEVALBUTEROL 1.25 MG/0.5 ML CONCENTRATE NEB INH SCH ×6 (05:03→21:16)
[2019-06-28 06:00] VITALS: BP 114/60
[2019-06-28 06:39] LABS: BASO % 0.2 % (0.0-1.0); EOS % 0.1 % (0.0-3.0); HEMATOCRIT 37.2 % (36.0-47.0); HEMOGLOBIN 12.3 g/dl (12.0-15.5); LYMPH # 0.7 10^3/uL (1.5-5.0); LYMPH % 3.8 % (24.0-44.0); MEAN CORPUSCULAR HEMOGLOBIN 33.4 pg (27.0-33.0); MEAN CORPUSCULAR HGB CONC 33.1 g/dl (32.0-36.5); MEAN CORPUSCULAR VOLUME 101.1 fl (80.0-96.0); MONO # 1.2 10^3/uL (0.0-0.8); MONO % 6.8 % (0.0-5.0); NEUTROPHILS # 15.6 10^3/uL (1.5-8.5); NEUTROPHILS % 88.3 % (36.0-66.0); PLATELET COUNT, AUTOMATED 528 10^3/uL (150-450); RED BLOOD COUNT 3.68 10^6/uL (4.00-5.40); WHITE BLOOD COUNT 17.7 10^3/uL (4.0-10.0)
[2019-06-28 07:06] LABS: BLOOD UREA NITROGEN 15 MG/DL (7-18); CALCIUM LEVEL 8.6 MG/DL (8.5-10.1); CARBON DIOXIDE LEVEL 38 MEQ/L (21-32); CHLORIDE LEVEL 95 MEQ/L (98-107); CREATININE FOR GFR 0.38 MG/DL (0.55-1.30); GLOMERULAR FILTRATION RATE > 60.0 (>58); GLUCOSE, FASTING 119 MG/DL (70-100); POTASSIUM SERUM 3.6 MEQ/L (3.5-5.1); SODIUM LEVEL 138 MEQ/L (136-145)
[2019-06-28] MEDS: MORPHINE 30 MG TAB **MSIR PO SCH ×2 (09:04→21:23)
[2019-06-28] MEDS: ENOXAPARIN 60 MG/0.6 ML SYR (J1650) SC SCH ×2 (09:04→21:15)
[2019-06-28] MEDS: FAMOTIDINE 20 MG TAB PO SCH ×2 (09:05→21:15)
[2019-06-28] MEDS: guaiFENesin ER 600 MG TAB PO SCH ×2 (09:05→20:09)
[2019-06-28] MEDS: SENOKOT S TAB PO SCH ×2 (09:05→21:15)
[2019-06-28] MEDS: CETIRIZINE (ZyrTEC) 10 MG TAB PO SCH (09:05)
[2019-06-28] MEDS: POTASSIUM CHLORIDE 10% LIQ 20 MEQ/15 ML UDC PO SCH (09:05)
[2019-06-28] MEDS: MONTELUKAST 10 MG TAB PO SCH (09:05)
[2019-06-28] MEDS: DOXYCYCLINE HYCLATE 100 MG TAB PO SCH ×2 (09:05→21:15)
[2019-06-28] MEDS: methylPREDNISolone INJ 40 MG/1 ML VIAL (J2920) IV SCH ×2 (09:05→21:15)
[2019-06-28] MEDS: BACITRACIN OINT 30GM TOP SCH ×2 (09:06→21:24)
[2019-06-28] MEDS ORDERED: MOM 30ML SUSPENSION UDC PO PRN (09:30)
[2019-06-28] MEDS ORDERED: FUROSEMIDE 40 MG/4 ML VIAL (J1940) IV ONE (10:00)
--- NOTE | 2019-06-28 11:45 | IPNPDOC ---
Text Note Date of Service The patient was seen on 06/28/19. NOTE SUBJECTIVE: Says breathing is getting better, on 3 liters of oxygen. No fever or chills, no chest pain. No nausea or vomiting or diarrhea, started RT to the iliac bone. Working with PT. Complains of constipation. Continues to have pain and using opiates every 4 hours. PHYSICAL EXAMINATION: VITAL SIGNS: pls see below GEN: Comfortable sitting up in bed. HEENT: Normocephalic , atraumatic , No pallor. No icterus. No cyanosis. Trachea is midline. Mucus membranes moist. Neck: No JVD no thyromegaly LUNGS: Diminished. Bilateral expiratory wheezing. coarse breath sounds. Prolonged expiration. HEART: S1, S2. Sinus tachycardia. No murmurs, rubs or gallops. ABDOMEN: Soft, non tender, non distended. Positive bowel sounds. No rebound or guarding or hepatosplenomegaly. The patient continues to have some erythema, bruising, and tender right iliac post lumbar puncture lesion, which is not fluctuant and not indurated. EXTREMITIES: No cyanosis or clubbing, there is bilateral 1+ edema SKIN: No rash or breakdown. The patient continues to have some erythema, b ruising, and tender right iliac post lumbar puncture lesion, which is not fluctuant and not indurated. NEURO: no focal neurodeficits, awake, alert , oriented x 3 HOSPITAL MEDICATIONS: reviewed. ASSESSMENT AND PLAN: This is a 44-year-old female with over 25 pack year history of smoking, no prior diagnosis of chronic obstructive pulmonary disease (COPD) or emphysema, presented to her doctor due to right leg pain and found to have right iliac wing lesion. She was sent to orthopedic surgery and status post biopsy showing a metastatic adenocarcinoma of the lung, mucinous type with lesions in the right iliac wing eroding into the sacrum. The patient was seen by Dr. Pang and referred to radiation oncology for urgent radiation. She was marked yesterday. She presented to the emergency room with a 3 week history of worsening dyspnea on exertion, unable to move from room to room without significant distress. The patient was found to be having expiratory wheezing and COPD exacerbation and has been admitted for the following issues: Acute COPD exacerbation. on IV Solu Medrol, antibiotics, nebulizer treatments and supplemental oxygen. Singulair, cetirizine Acute hypoxic respiratory failure . due to PE, lung ca, copd ex. and possible postobstructive pneumonia with increased infiltrates on cxr. on iv abx. zosyn and doxy. Post obstructive pneumonia continue zosyn and doxy Leukocytosis: ddx: worsening lung ca with postobstructive pna and steroids Procalcitonin from 06/20 was only 1.47 Pulmonary embolism. On Lovenox 1 mg per kg secondary to adenocarcinoma of the lung and hypercoagulable state. Lung cancer adenocarcinoma of the lung, stage IV. Mucinous type with metastatic lesion to the right iliac wing and eroding into the sacrum with difficulty ambulating due to severe pain. started on RT on 06/24 She is managed as outpatient by Dr. Kavya Pang, who will determine the rest of her management when she is discharged. Pain Control: seen by pain management MSIR 30 mg by mouth twice a day and oxycodone 5 mg q 4 hours prn. . Urinary retention resolved. Sinus tachycardia secondary to PE, respiratory distress, COPD and lung cancer. better not on any meds. Cancer cachexia. Nutritional consultation for supplemental nutrition. Currently on three times a day Boost. VS,Fishbone, I+O VS, Fishbone, I+O Laboratory Tests 06/28/19 05:54 Red Blood Count 3.68 L, Mean Corpuscular Volume 101.1 H, Mean Corpuscular Hemoglobin 33.4 H, Mean Corpuscular Hemoglobin Concent 33.1, Red Cell Distribution Width 15.5 H, Neutrophils (%) (Auto) 88.3 H, Lymphocytes (%) (Auto) 3.8 L, Monocytes (%) (Auto) 6.8 H, Eosinophils (%) (Auto) 0.1, Basophils (%) (Auto) 0.2, Neutrophils # (Auto) 15.6 H, Lymphocytes # (Auto) 0.7 L, Monocytes # (Auto) 1.2 H, Eosinophils # (Auto) 0.0, Basophils # (Auto) 0.0, Calcium Level 8.6 Vital Signs Date Time Temp Pulse Resp B/P (MAP) Pulse Ox O2 Delivery O2 Flow Rate FiO2 06/28/19 10:00 3.0 06/28/19 09:34 18 06/28/19 06:00 97.1 110 114/60 (78) 98 06/27/19 22:00 Nasal Cannula I&O- Last 24 Hours up to 6 AM 06/28/19 06:00 Intake Total 1360 ml Output Total 3200 ml Balance -1840 ml REJI MORTON MD Jun 28, 2019 11:45
[2019-06-28 14:00] VITALS: BP 93/66
[2019-06-28 22:00] VITALS: BP 94/65
[2019-06-29] MEDS: oxyCODONE 5MG TAB PO PRN ×5 (01:00→23:43)
[2019-06-29] MEDS: PIPERACILLIN/TAZOBACTAM SOD 3.375 GM in D5W MINI-BAG PLUS 50 ML IV SCH ×4 (04:21→22:18)
[2019-06-29] MEDS: LEVALBUTEROL 1.25 MG/0.5 ML CONCENTRATE NEB INH SCH ×5 (04:21→19:31)
[2019-06-29 06:00] VITALS: BP 92/64
[2019-06-29] MEDS: SLF 3 ML SYR IV SCH ×3 (06:20→22:18)
[2019-06-29] MEDS: IPRATROPIUM 0.02% SOLN 0.5MG/2.5 ML NEB INH SCH ×5 (07:32→19:31)
[2019-06-29 07:43] LABS: BASO # 0.1 10^3/uL (0.0-0.2); BASO % 0.4 % (0.0-1.0); EOS % 0.2 % (0.0-3.0); HEMATOCRIT 34.9 % (36.0-47.0); HEMOGLOBIN 11.7 g/dl (12.0-15.5); LYMPH # 0.7 10^3/uL (1.5-5.0); LYMPH % 3.9 % (24.0-44.0); MEAN CORPUSCULAR HEMOGLOBIN 32.3 pg (27.0-33.0); MEAN CORPUSCULAR HGB CONC 33.5 g/dl (32.0-36.5); MEAN CORPUSCULAR VOLUME 96.4 fl (80.0-96.0); MONO % 5.7 % (0.0-5.0); NEUTROPHILS # 14.8 10^3/uL (1.5-8.5); NEUTROPHILS % 88.7 % (36.0-66.0); PLATELET COUNT, AUTOMATED 503 10^3/uL (150-450); RED BLOOD COUNT 3.62 10^6/uL (4.00-5.40); WHITE BLOOD COUNT 16.7 10^3/uL (4.0-10.0)
[2019-06-29 08:05] LABS: BLOOD UREA NITROGEN 17 MG/DL (7-18); CALCIUM LEVEL 8.9 MG/DL (8.5-10.1); CARBON DIOXIDE LEVEL 35 MEQ/L (21-32); CHLORIDE LEVEL 96 MEQ/L (98-107); CREATININE FOR GFR 0.33 MG/DL (0.55-1.30); GLOMERULAR FILTRATION RATE > 60.0 (>58); GLUCOSE, FASTING 100 MG/DL (70-100); POTASSIUM SERUM 4.1 MEQ/L (3.5-5.1); SODIUM LEVEL 135 MEQ/L (136-145)
[2019-06-29] MEDS: SENOKOT S TAB PO SCH ×2 (09:00→21:00)
[2019-06-29] MEDS: guaiFENesin ER 600 MG TAB PO SCH ×2 (09:00→21:00)
[2019-06-29] MEDS: POTASSIUM CHLORIDE 10% LIQ 20 MEQ/15 ML UDC PO SCH (09:06)
[2019-06-29] MEDS: ENOXAPARIN 60 MG/0.6 ML SYR (J1650) SC SCH ×2 (09:06→21:03)
[2019-06-29] MEDS: DOXYCYCLINE HYCLATE 100 MG TAB PO SCH ×2 (09:07→21:02)
[2019-06-29] MEDS: FAMOTIDINE 20 MG TAB PO SCH ×2 (09:07→21:02)
[2019-06-29] MEDS: CETIRIZINE (ZyrTEC) 10 MG TAB PO SCH (09:07)
[2019-06-29] MEDS: MONTELUKAST 10 MG TAB PO SCH (09:07)
[2019-06-29] MEDS: predniSONE 20 MG TAB PO SCH (09:08)
[2019-06-29] MEDS: MORPHINE 30 MG TAB **MSIR PO SCH ×2 (09:09→21:04)
[2019-06-29] MEDS: BACITRACIN OINT 30GM TOP SCH ×2 (09:19→21:04)
[2019-06-29] MEDS ORDERED: FUROSEMIDE 20 MG/2 ML VIAL (J1940) IV ONE (11:00)
--- NOTE | 2019-06-29 12:00 | IPNPDOC ---
Text Note Date of Service The patient was seen on 06/29/19. NOTE SUBJECTIVE: Says breathing is getting better, on 3 liters of oxygen. No fever or chills, no chest pain. No nausea or vomiting or diarrhea, started RT to the iliac bone. Working with PT. Complains of constipation. Continues to have pain and using opiates every 4 hours. PHYSICAL EXAMINATION: VITAL SIGNS: pls see below GEN: Comfortable sitting up in bed. HEENT: Normocephalic , atraumatic , No pallor. No icterus. No cyanosis. Trachea is midline. Mucus membranes moist. Neck: No JVD no thyromegaly LUNGS: Diminished. Bilateral expiratory wheezing. coarse breath sounds. Prolonged expiration. HEART: S1, S2. Sinus tachycardia. No murmurs, rubs or gallops. ABDOMEN: Soft, non tender, non distended. Positive bowel sounds. No rebound or guarding or hepatosplenomegaly. The patient continues to have some erythema, bruising, and tender right iliac post lumbar puncture lesion, which is not fluctuant and not indurated. EXTREMITIES: No cyanosis or clubbing, there is bilateral 1+ edema SKIN: No rash or breakdown. The patient continues to have some erythema, b ruising, and tender right iliac post lumbar puncture lesion, which is not fluctuant and not indurated. NEURO: no focal neurodeficits, awake, alert , oriented x 3 HOSPITAL MEDICATIONS: reviewed. ASSESSMENT AND PLAN: This is a 44-year-old female with over 25 pack year history of smoking, no prior diagnosis of chronic obstructive pulmonary disease (COPD) or emphysema, presented to her doctor due to right leg pain and found to have right iliac wing lesion. She was sent to orthopedic surgery and status post biopsy showing a metastatic adenocarcinoma of the lung, mucinous type with lesions in the right iliac wing eroding into the sacrum. The patient was seen by Dr. Pang and referred to radiation oncology for urgent radiation. She was marked yesterday. She presented to the emergency room with a 3 week history of worsening dyspnea on exertion, unable to move from room to room without significant distress. The patient was found to be having expiratory wheezing and COPD exacerbation and has been admitted for the following issues: Acute COPD exacerbation. on IV Solu Medrol, antibiotics, nebulizer treatments and supplemental oxygen. Singulair, cetirizine Acute hypoxic respiratory failure . due to PE, lung ca, copd ex. and possible postobstructive pneumonia with increased infiltrates on cxr. on iv abx. zosyn and doxy. Post obstructive pneumonia continue zosyn and doxy Leukocytosis: ddx: worsening lung ca with postobstructive pna and steroids Procalcitonin from 06/20 was only 1.47 Pulmonary embolism. On Lovenox 1 mg per kg secondary to adenocarcinoma of the lung and hypercoagulable state. Lung cancer adenocarcinoma of the lung, stage IV. Mucinous type with metastatic lesion to the right iliac wing and eroding into the sacrum with difficulty ambulating due to severe pain. started on RT on 06/24 She is managed as outpatient by Dr. Kavya Pang, who will determine the rest of her management when she is discharged. Pain Control: seen by pain management MSIR 30 mg by mouth twice a day and oxycodone 5 mg q 4 hours prn. . Urinary retention resolved. Sinus tachycardia secondary to PE, respiratory distress, COPD and lung cancer. better not on any meds. Cancer cachexia. Nutritional consultation for supplemental nutrition. Currently on three times a day Boost. VS,Fishbone, I+O VS, Fishbone, I+O Laboratory Tests 06/29/19 07:19 Red Blood Count 3.62 L, Mean Corpuscular Volume 96.4 H, Mean Corpuscular Hemoglobin 32.3, Mean Corpuscular Hemoglobin Concent 33.5, Red Cell Distribution Width 15.1 H, Neutrophils (%) (Auto) 88.7 H, Lymphocytes (%) (Auto) 3.9 L, Monocytes (%) (Auto) 5.7 H, Eosinophils (%) (Auto) 0.2, Basophils (%) (Auto) 0.4, Neutrophils # (Auto) 14.8 H, Lymphocytes # (Auto) 0.7 L, Monocytes # (Auto) 1.0 H, Eosinophils # (Auto) 0.0, Basophils # (Auto) 0.1, Calcium Level 8.9 Vital Signs Date Time Temp Pulse Resp B/P (MAP) Pulse Ox O2 Delivery O2 Flow Rate FiO2 06/29/19 09:45 15 06/29/19 06:00 97.7 97 92/64 (73) 98 3.0 06/27/19 22:00 Nasal Cannula I&O- Last 24 Hours up to 6 AM 06/29/19 06:00 Intake Total 1190 ml Output Total 2500 ml Balance -1310 ml REJI MORTON MD Jun 29, 2019 12:00
[2019-06-29 14:00] VITALS: BP 98/68
[2019-06-29 19:31] VITALS: O2SAT 100
[2019-06-29 22:00] VITALS: BP 116/69
[2019-06-30] MEDS: PIPERACILLIN/TAZOBACTAM SOD 3.375 GM in D5W MINI-BAG PLUS 50 ML IV SCH ×3 (03:59→16:07)
[2019-06-30] MEDS: oxyCODONE 5MG TAB PO PRN (04:01)
[2019-06-30] MEDS: IPRATROPIUM 0.02% SOLN 0.5MG/2.5 ML NEB INH SCH ×7 (04:03→23:29)
[2019-06-30] MEDS: LEVALBUTEROL 1.25 MG/0.5 ML CONCENTRATE NEB INH SCH ×7 (04:03→23:29)
[2019-06-30] MEDS: SLF 3 ML SYR IV SCH ×3 (05:23→22:21)
[2019-06-30 06:00] VITALS: BP 124/66
[2019-06-30 06:55] LABS: BASO # 0.1 10^3/uL (0.0-0.2); BASO % 0.4 % (0.0-1.0); EOS # 0.1 10^3/uL (0.0-0.5); EOS % 0.8 % (0.0-3.0); HEMATOCRIT 35.8 % (36.0-47.0); LYMPH # 0.9 10^3/uL (1.5-5.0); LYMPH % 5.5 % (24.0-44.0); MEAN CORPUSCULAR HEMOGLOBIN 33.1 pg (27.0-33.0); MEAN CORPUSCULAR HGB CONC 33.5 g/dl (32.0-36.5); MEAN CORPUSCULAR VOLUME 98.9 fl (80.0-96.0); MONO # 1.2 10^3/uL (0.0-0.8); MONO % 6.8 % (0.0-5.0); NEUTROPHILS # 14.3 10^3/uL (1.5-8.5); NEUTROPHILS % 85.1 % (36.0-66.0); PLATELET COUNT, AUTOMATED 464 10^3/uL (150-450); RED BLOOD COUNT 3.62 10^6/uL (4.00-5.40); WHITE BLOOD COUNT 16.8 10^3/uL (4.0-10.0)
[2019-06-30 07:14] VITALS: O2SAT 96
[2019-06-30 07:18] LABS: BLOOD UREA NITROGEN 17 MG/DL (7-18); CALCIUM LEVEL 9.3 MG/DL (8.5-10.1); CARBON DIOXIDE LEVEL 34 MEQ/L (21-32); CHLORIDE LEVEL 98 MEQ/L (98-107); CREATININE FOR GFR 0.34 MG/DL (0.55-1.30); GLOMERULAR FILTRATION RATE > 60.0 (>58); GLUCOSE, FASTING 104 MG/DL (70-100); POTASSIUM SERUM 3.6 MEQ/L (3.5-5.1); SODIUM LEVEL 134 MEQ/L (136-145)
[2019-06-30] MEDS ORDERED: FUROSEMIDE 20 MG/2 ML VIAL (J1940) IV ONE (08:00)
[2019-06-30] MEDS: MORPHINE 30 MG TAB **MSIR PO SCH ×2 (08:18→20:22)
[2019-06-30] MEDS: SENOKOT S TAB PO SCH ×3 (09:00→20:25)
[2019-06-30] MEDS: guaiFENesin ER 600 MG TAB PO SCH ×2 (09:00→20:24)
[2019-06-30] MEDS: POTASSIUM CHLORIDE 10% LIQ 20 MEQ/15 ML UDC PO SCH (09:41)
[2019-06-30] MEDS: ENOXAPARIN 60 MG/0.6 ML SYR (J1650) SC SCH ×2 (09:42→20:23)
[2019-06-30] MEDS: DOXYCYCLINE HYCLATE 100 MG TAB PO SCH ×2 (09:43→20:22)
[2019-06-30] MEDS: predniSONE 20 MG TAB PO SCH (09:43)
[2019-06-30] MEDS: FAMOTIDINE 20 MG TAB PO SCH ×2 (09:43→20:22)
[2019-06-30] MEDS: CETIRIZINE (ZyrTEC) 10 MG TAB PO SCH (09:43)
[2019-06-30] MEDS: MONTELUKAST 10 MG TAB PO SCH (09:43)
[2019-06-30] MEDS: BACITRACIN OINT 30GM TOP SCH ×2 (09:44→20:25)
[2019-06-30 11:32] VITALS: O2SAT 95
--- NOTE | 2019-06-30 12:14 | IPNPDOC ---
Text Note Date of Service The patient was seen on 06/30/19. NOTE SUBJECTIVE: Says breathing is getting better, on 3 liters of oxygen. No fever or chills, no chest pain. No nausea or vomiting or diarrhea, started RT to the iliac bone. Working with PT. Continues to have pain and using opiates every 4 hours. Had good bowel movement yesterday. right hip pain still the same. Leg swelling has improved. PHYSICAL EXAMINATION: VITAL SIGNS: pls see below GEN: Comfortable sitting up in bed. HEENT: Normocephalic , atraumatic , No pallor. No icterus. No cyanosis. Trachea is midline. Mucus membranes moist. Neck: No JVD no thyromegaly LUNGS: Diminished. Bilateral expiratory wheezing. coarse breath sounds. Prolonged expiration. HEART: S1, S2. Sinus tachycardia. No murmurs, rubs or gallops. ABDOMEN: Soft, non tender, non distended. Positive bowel sounds. No rebound or guarding or hepatosplenomegaly. The patient continues to have some erythema, bruising, and tender right iliac post lumbar puncture lesion, which is not fluc tuant and not indurated. EXTREMITIES: No cyanosis or clubbing, there is bilateral 1+ edema SKIN: No rash or breakdown. The patient continues to have some erythema, bruising, and tender right iliac post lumbar puncture lesion, which is not fluctuant and not indurated. NEURO: no focal neurodeficits, awake, alert , oriented x 3 HOSPITAL MEDICATIONS: reviewed. ASSESSMENT AND PLAN: This is a 44-year-old female with over 25 pack year history of smoking, no prior diagnosis of chronic obstructive pulmonary disease (COPD) or emphysema, presented to her doctor due to right leg pain and found to have right iliac wing lesion. She was sent to orthopedic surgery and status post biopsy showing a metastatic adenocarcinoma of the lung, mucinous type with lesions in the right iliac wing eroding into the sacrum. The patient was seen by Dr. Pang and referred to radiation oncology for urgent radiation. She was marked yesterday. She presented to the emergency room with a 3 week history of worsening dyspnea on exertion, unable to move from room to room without significant distress. The patient was found to be having expiratory wheezing and COPD exacerbation and has been admitted for the following issues: Acute COPD exacerbation. On prednisone taper, antibiotics, nebulizer treatments and supplemental oxygen. Singulair, cetirizine Acute hypoxic respiratory failure . due to PE, lung ca, copd ex. and possible postobstructive pneumonia with increased infiltrates on cxr and fluid overload on iv abx. zosyn and doxy. lasix prn. She is desaturated down to 79% with ambulation and recovered with 2 liters of oxygen. Will probably need to go home with oxygen. will do formal testing on the day of discharge. Post obstructive pneumonia continue zosyn and doxy Leukocytosis: improving. ddx: worsening lung ca with postobstructive pna and steroids Procalcitonin from 06/20 was only 1.47 Pulmonary embolism. On Lovenox 1 mg per kg secondary to adenocarcinoma of the lung and hypercoagulable state. Lung cancer adenocarcinoma of the lung, stage IV. Mucinous type with metastatic lesion to the right iliac wing and eroding into the sacrum with difficulty ambulating due to severe pain. started on RT on 06/24 She is managed as outpatient by Dr. Kavya Pang, who will determine the rest of her management when she is discharged. Pain Control: seen by pain management MSIR 30 mg by mouth twice a day and will ad MSIR 15 mg q6 hours prn. will dc oxycodone Urinary retention resolved. Sinus tachycardia secondary to PE, respiratory distress, COPD and lung cancer. better not on any meds. Cancer cachexia. Nutritional consultation for supplemental nutrition. Currently on three times a day Boost. DME requirement: Hospital bed as she has metastatic lung cancer metastatic to bone , COPD, lung collapse So is SOB and has severe back pain so requires body positioning with head end elevation to greater than 30 degree for pain control and help with he breathing which is not possible with an ordinary bed. Has gait instability with generalized weakness and SOB , needing oxygen needed a 4 wheeled walker with seat and brakes, commode. VS,Fishbone, I+O VS, Fishbone, I+O Laboratory Tests 06/29/19 07:19 Red Blood Count 3.62 L, Mean Corpuscular Volume 96.4 H, Mean Corpuscular Hemoglobin 32.3, Mean Corpuscular Hemoglobin Concent 33.5, Red Cell Distribution Width 15.1 H, Neutrophils (%) (Auto) 88.7 H, Lymphocytes (%) (Auto) 3.9 L, Monocytes (%) (Auto) 5.7 H, Eosinophils (%) (Auto) 0.2, Basophils (%) (Auto) 0.4, Neutrophils # (Auto) 14.8 H, Lymphocytes # (Auto) 0.7 L, Monocytes # (Auto) 1.0 H, Eosinophils # (Auto) 0.0, Basophils # (Auto) 0.1, Calcium Level 8.9 Vital Signs Date Time Temp Pulse Resp B/P (MAP) Pulse Ox O2 Delivery O2 Flow Rate FiO2 06/30/19 04:31 20 95 3.0 06/29/19 23:43 107/71 06/29/19 22:00 99.0 117 06/29/19 19:31 Nasal Cannula I&O- Last 24 Hours up to 6 AM 06/30/19 06:00 Intake Total 470 ml Output Total 1800 ml Balance -1330 ml REJI MORTON MD Jun 30, 2019 06:47
[2019-06-30 14:00] VITALS: BP 115/73
[2019-06-30] MEDS: MORPHINE 30 MG TAB **MSIR PO PRN (14:22)
[2019-06-30 16:32] VITALS: O2SAT 93
[2019-06-30 20:00] VITALS: BP 104/70
[2019-07-01] MEDS: MORPHINE 30 MG TAB **MSIR PO PRN ×2 (02:38→13:50)
[2019-07-01] MEDS: IPRATROPIUM 0.02% SOLN 0.5MG/2.5 ML NEB INH SCH ×4 (04:21→15:29)
[2019-07-01] MEDS: LEVALBUTEROL 1.25 MG/0.5 ML CONCENTRATE NEB INH SCH ×4 (04:21→15:29)
[2019-07-01 04:22] VITALS: O2SAT 90
[2019-07-01] MEDS: SLF 3 ML SYR IV SCH ×2 (05:14→14:00)
[2019-07-01 06:21] LABS: BASO % 0.2 % (0.0-1.0); EOS # 0.1 10^3/uL (0.0-0.5); EOS % 0.9 % (0.0-3.0); HEMATOCRIT 37.1 % (36.0-47.0); HEMOGLOBIN 12.3 g/dl (12.0-15.5); LYMPH % 7.3 % (24.0-44.0); MEAN CORPUSCULAR HEMOGLOBIN 32.1 pg (27.0-33.0); MEAN CORPUSCULAR HGB CONC 33.2 g/dl (32.0-36.5); MEAN CORPUSCULAR VOLUME 96.9 fl (80.0-96.0); MONO # 1.2 10^3/uL (0.0-0.8); MONO % 8.9 % (0.0-5.0); NEUTROPHILS # 11.3 10^3/uL (1.5-8.5); NEUTROPHILS % 81.5 % (36.0-66.0); PLATELET COUNT, AUTOMATED 480 10^3/uL (150-450); RED BLOOD COUNT 3.83 10^6/uL (4.00-5.40); WHITE BLOOD COUNT 13.9 10^3/uL (4.0-10.0)
[2019-07-01 06:46] LABS: BLOOD UREA NITROGEN 19 MG/DL (7-18); CALCIUM LEVEL 9.1 MG/DL (8.5-10.1); CARBON DIOXIDE LEVEL 29 MEQ/L (21-32); CHLORIDE LEVEL 101 MEQ/L (98-107); CREATININE FOR GFR 0.34 MG/DL (0.55-1.30); GLOMERULAR FILTRATION RATE > 60.0 (>58); GLUCOSE, FASTING 100 MG/DL (70-100); POTASSIUM SERUM 3.8 MEQ/L (3.5-5.1); SODIUM LEVEL 136 MEQ/L (136-145)
[2019-07-01] MEDS: SENOKOT S TAB PO SCH (09:00)
[2019-07-01] MEDS: guaiFENesin ER 600 MG TAB PO SCH (09:00)
[2019-07-01] MEDS: FAMOTIDINE 20 MG TAB PO SCH (09:16)
[2019-07-01] MEDS: MORPHINE 30 MG TAB **MSIR PO SCH (09:16)
[2019-07-01] MEDS: CETIRIZINE (ZyrTEC) 10 MG TAB PO SCH (09:17)
[2019-07-01] MEDS: MONTELUKAST 10 MG TAB PO SCH (09:17)
[2019-07-01] MEDS: DOXYCYCLINE HYCLATE 100 MG TAB PO SCH (09:17)
[2019-07-01] MEDS: POTASSIUM CHLORIDE 10% LIQ 20 MEQ/15 ML UDC PO SCH (09:18)
[2019-07-01] MEDS: ENOXAPARIN 60 MG/0.6 ML SYR (J1650) SC SCH (09:19)
[2019-07-01] MEDS: predniSONE 20 MG TAB PO SCH (09:19)
[2019-07-01] MEDS: BACITRACIN OINT 30GM TOP SCH (09:25)
[2019-07-01] MEDS ORDERED: MORP15TA2 PO (11:11)
[2019-07-01] MEDS ORDERED: LEVA12INH INH (11:11)
[2019-07-01] MEDS ORDERED: BACI50OI TOP (11:11)
[2019-07-01] MEDS ORDERED: MSIR30TA PO (11:11)
[2019-07-01] MEDS ORDERED: IPRA2IN INH (11:11)
[2019-07-01] MEDS ORDERED: PRED10TA2 PO (11:11)
[2019-07-01] MEDS ORDERED: LIDO5OIN19 TOP (11:11)
[2019-07-01] MEDS ORDERED: SENN8.6T58 PO (11:11)
[2019-07-01] MEDS ORDERED: LASI40TA9 PO (11:11)
[2019-07-01] MEDS ORDERED: DOXY100T PO (11:11)
[2019-07-01] MEDS ORDERED: DOCU100T8 PO (11:11)
[2019-07-01] MEDS ORDERED: FAMO20TA PO (11:11)
--- NOTE | 2019-07-01 12:15 | DS.PDOC ---
Discharge Summary General Date of Admission Jun 19, 2019 at 14:30 Date of Discharge 07/01/19 Discharge Summary PROCEDURES PERFORMED DURING STAY: Started on RT on 06/24/19 DISCHARGE DIAGNOSES: Post obstructive pneumonia Metastatic adenocarcinoma of Lungs. Right illiac wing metastasis on RT COPD exacerbation Acute respiratory failure with hypoxia Cancer cachexia Leucocytosis Tachycardia Pulmonary embolism Severe back pain requiring opiates. COMPLICATIONS/CHIEF COMPLAINT: Adenocarcinoma Of Lung. HISTORY OF PRESENT ILLNESS: See history and physical HOSPITAL COURSE: This is a 44-year-old female with over 30 pack year history of smoking, with probable COPD, recent diagnosis of metastatic adenocarcinoma of lungs in may 2019, Pulmonary embolism on 05/29/19 on lovenox, presented to ED with increasing Shortness of breath , exertional dyspnea, severe pain in the right hip. She was unable to walk from room to room due to worsening shortness of breath and could not catch her breath and unable to eat due to difficulty breathing. The patient has had a decrease in appetite with some decrease in we ight which is undocumented at home. The Patient has been since last January dealing with chronic pain, uncertain origin involving the right low back. She sought medical attention 05/16/2019 in the emergency room, a CT of the spine without contrast revealed an expansile lytic lesion in the right ileum with an associated soft tissue mass containing heterogeneous calcifications, focal areas of loss of definition. The mass is fairly large perhaps 4-5 cm. She was sent to orthopedic surgery and status post biopsy showing a metastatic adenocarcinoma of the lung, mucinous type with lesions in the right iliac wing eroding into the sacrum. The patient was seen by Dr Pang and referred to radiation oncology for urgent radiation. She presented to the emergency room with a 3 week history of worsening dyspnea on exertion, unable to move from room to room without significant distress. CT angio of chest showed There is imaging artifact versus nonocclusive thrombus in the left main pulmonary artery, similar to the prior study. There are numerous irregular confluent lung nodules are identified bilaterally, unchanged. Right middle lobe collapse, obscuring the right hilus, unchanged. The patient was found to be having expiratory wheezing and COPD exacerbation and has been admitted for COPD exacerbation, acute respiratory failure with hypoxia, Post obstructive pneumonia, leucocytosis and tachycardia and uncontrolled pain with difficulty in ambulation. Acute COPD exacerbation. On prednisone taper, nebulizer treatments and supplemental oxygen. Singulair, cetirizine Acute hypoxic respiratory failure . due to PE, lung ca, copd ex. and possible postobstructive pneumonia with increased infiltrates on cxr and fluid overload lasix prn. Post obstructive pneumonia finished a course of zosyn doxy 3 more days. Leukocytosis: improving. ddx: worsening lung ca with postobstructive pna and steroids Procalcitonin from 06/20 was only 1.47 Pulmonary embolism. On Lovenox 1 mg per kg secondary to adenocarcinoma of the lung and hypercoagulable state. Lung cancer adenocarcinoma of the lung, stage IV. Mucinous type with metastatic lesion to the right iliac wing and eroding into the sacrum with difficulty ambulating due to severe pain. started on RT on 06/24 She is managed as outpatient by Dr. Kavya Pang, who will determine the rest of her management when she is discharged. Pain Control: seen by pain management MSIR 30 mg by mouth twice a day and will ad MSIR 15 mg q6 hours prn. will dc oxycodone Urinary retention resolved. Persistent Sinus tachycardia secondary to PE, respiratory distress, COPD and lung cancer. not on any meds. Cancer cachexia. Nutritional consultation for supplemental nutrition. Currently on three times a day Boost. DISCHARGE MEDICATIONS: Please see below. ALLERGIES: Please see below. PHYSICAL EXAMINATION ON DISCHARGE: VITAL SIGNS: Please see below. GEN: Comfortable sitting up in bed. HEENT: Normocephalic , atraumatic , No pallor. No icterus. No cyanosis. Trachea is midline. Mucus membranes moist. Neck: No JVD no thyromegaly LUNGS: Diminished. Bilateral expiratory wheezing. coarse breath sounds. Prolonged expiration. HEART: S1, S2. Sinus tachycardia. No murmurs, rubs or gallops. ABDOMEN: Soft, non tender, non distended. Positive bowel sounds. No rebound or guarding or hepatosplenomegaly. The patient continues to have some erythema, bruising, and tender right iliac post lumbar puncture lesion, which is not fluctuant and not indurated. EXTREMITIES: No cyanosis or clubbing, there is bilateral 1+ edema SKIN: No rash or breakdown. The patient continues to have some erythema, bruising, and tender right iliac post lumbar puncture lesion, which is not fluctuant and not indurated. NEURO: no focal neurodeficits, awake, alert , oriented x 3 LABORATORY DATA: Please see below. PROGNOSIS: Guarded ACTIVITY: [As tolerated]. DIET: As tolerated DISCHARGE PLAN: Home with services DISPOSITION: . DISCHARGE INSTRUCTIONS: Follow up with Dr Pang in 1 week Continue RT. DISCHARGE CONDITION: [Stable]. TIME SPENT ON DISCHARGE: 35 minutes. Vital Signs/I&Os Vital Signs Date Time Temp Pulse Resp B/P (MAP) Pulse Ox O2 Delivery O2 Flow Rate FiO2 07/01/19 11:57 91 3.0 07/01/19 09:16 18 07/01/19 04:22 Nasal Cannula 06/30/19 20:00 98.0 118 104/70 (81) I&O- Last 24 Hours up to 6 AM 07/01/19 06:00 Intake Total 580 ml Output Total 1800 ml Balance -1220 ml Laboratory Data Labs 24H Laboratory Tests 2 07/01/19 05:28: Immature Granulocyte % (Auto) 1.2, White Blood Count 13.9H, Red Blood Count 3.83L, Hemoglobin 12.3, Hematocrit 37.1, Mean Corpuscular Volume 96.9H, Mean Corpuscular Hemoglobin 32.1, Mean Corpuscular Hemoglobin Concent 33.2, Red Cell Distribution Width 14.9H, Platelet Count 480H, Neutrophils (%) (Auto) 81.5H, Lymphocytes (%) (Auto) 7.3L, Monocytes (%) (Auto) 8.9H, Eosinophils (%) (Auto) 0.9, Basophils (%) (Auto) 0.2, Neutrophils # (Auto) 11.3H, Lymphocytes # (Auto) 1.0L, Monocytes # (Auto) 1.2H, Eosinophils # (Auto) 0.1, Basophils # (Auto) 0.0, Nucleated Red Blood Cells % (auto) 0.0, Anion Gap 6L, Glomerular Filtration Rate > 60.0, Blood Urea Nitrogen 19H, Creatinine 0.34L, Sodium Level 136, Potassium Level 3.8, Chloride Level 101, Carbon Dioxide Level 29, Calcium Level 9.1 CBC/BMP Laboratory Tests 07/01/19 05:28 Red Blood Count 3.83 L, Mean Corpuscular Volume 96.9 H, Mean Corpuscular Hemo globin 32.1, Mean Corpuscular Hemoglobin Concent 33.2, Red Cell Distribution Width 14.9 H, Neutrophils (%) (Auto) 81.5 H, Lymphocytes (%) (Auto) 7.3 L, Monocytes (%) (Auto) 8.9 H, Eosinophils (%) (Auto) 0.9, Basophils (%) (Auto) 0.2, Neutrophils # (Auto) 11.3 H, Lymphocytes # (Auto) 1.0 L, Monocytes # (Auto) 1.2 H, Eosinophils # (Auto) 0.1, Basophils # (Auto) 0.0, Calcium Level 9.1 Microbiology Microbiology 06/25/19 Gram Stain - Final, Complete 06/25/19 Sputum Culture - Final, Complete 06/22/19 Respiratory Virus Panel (PCR) ([facility]) - Final, Complete Discharge Medications Scheduled Bacitracin (Bacitracin) 28.4 Gm Oint...g., 0 DOSE TOP BID Cetirizine HCl (Cetirizine HCl) 10 Mg Tablet, 10 MG PO DAILY, (Reported) Docusate Sodium (Docusate Sodium) 100 Mg Tablet, 1 TAB PO BID Doxycycline Hyclate (Doxycycline Hyclate) 100 Mg Tablet, 100 MG PO BID Enoxaparin Sodium (Enoxaparin Sodium) 80 Mg/0.8 Ml Syringe, 80 MG SC DAILY for pulmonary embolism pulmonary embolism in patient with cancer Ergocalciferol (Vitamin D2) (Vitamin D2) 50,000 Unit Capsule, 50,000 UNIT PO QWEEK, (Reported) MONDAYS Famotidine (Famotidine) 20 Mg Tablet, 40 MG PO BID Ipratropium [place] (Ipratropium [place]) 0.2 Mg/1 Ml Solution, 0.5 MG INH RQ6H Levalbuterol Hydrochloride (Xopenex Concentrate) 1.25 Mg/0.5 Ml Vial.neb, 0.63 MG INH RQ6H Montelukast Sodium (Montelukast Sodium) 10 Mg Tablet, 10 MG PO DAILY, (Reported) Morphine Sulfate (Morphine Sulfate) 30 Mg Tablet, 30 MG PO BID Prednisone (Prednisone) 10 Mg Tablet, 10 MG PO TAPER 3 tabs daily x 3 days, then 2 tabs daily x 3 days, then 1 tab daily x 3 days and stop Sennosides (Senna) 8.6 Mg Tablet, 2 TAB PO DAILY for constipation Scheduled PRN Albuterol Sulfate (Albuterol Sulfate Hfa) 8.5 Gm Hfa.aer.ad, 2 PUFFS PO QID PRN for SOB/COUGH, (Reported) Fluticasone Propionate (Fluticasone Propionate) 16 Gm [place].susp, 2 SPRAY NA DAILY PRN for ALLERGIES, (Reported) Furosemide (Lasix) 40 Mg Tablet, 1 TAB PO DAILYPRN PRN for SYMPTOM RELIEF If leg swelling Lidocaine (Lidocaine) 120 Gm Oint...g., 0 DOSE TOP Q4HP PRN for pain Morphine Sulfate (Morphine Sulfate) 15 Mg Tablet, 1 TAB PO Q6HP PRN for pain Miscellaneous Medications Ibuprofen (Ibuprofen) 600 Mg Tablet, (Reported) Allergies Coded Allergies: No Known Allergies (Verified Allergy, Unknown, 03/28/19) REJI MORTON MD Jul 01, 2019 12:15
[2019-07-01 14:00] VITALS: BP 115/62
--- NOTE | 2019-07-01 15:37 | DS.PDOC ---
Discharge Summary General Date of Admission Jun 19, 2019 at 14:30 Date of Discharge 07/01/19 Discharge Summary PROCEDURES PERFORMED DURING STAY: Started on RT on 06/24/19 DISCHARGE DIAGNOSES: Post obstructive pneumonia Metastatic adenocarcinoma of Lungs. Right illiac wing metastasis on RT COPD exacerbation Acute respiratory failure with hypoxia Cancer cachexia Leucocytosis Tachycardia Pulmonary embolism Severe pain requiring opiates. COMPLICATIONS/CHIEF COMPLAINT: Adenocarcinoma Of Lung. HISTORY OF PRESENT ILLNESS: See history and physical HOSPITAL COURSE: This is a 44-year-old female with over 30 pack year history of smoking, with probable COPD, recent diagnosis of metastatic adenocarcinoma of lungs in may 2019, Pulmonary embolism on 05/29/19 on lovenox, presented to ED with increasing Shortness of breath , exertional dyspnea, severe pain in the right hip. She was unable to walk from room to room due to worsening shortness of breath and could not catch her breath and unable to eat due to difficulty breathing. The patient has had a decrease in appetite with some decrease in weight which is undocumented at home. The Patient has been since last January dealing with chronic pain, uncertain origin involving the right low back. She sought medical attention 05/16/2019 in the emergency room, a CT of the spine without contrast revealed an expansile lytic lesion in the right ileum with an associated soft tissue mass containing heterogeneous calcifications, focal areas of loss of definition. The mass is fairly large perhaps 4-5 cm. She was sent to orthopedic surgery and status post biopsy showing a metastatic adenocarcinoma of the lung, mucinous type with lesions in the right iliac wing eroding into the sacrum. The patient was seen by Dr Pang and referred to radiation oncology for urgent radiation. She presented to the emergency room with a 3 week history of worsening dyspnea on exertion, unable to move from room to room without significant distress. CT angio of chest showed There is imaging artifact versus nonocclusive thrombus in the left main pulmonary artery, similar to the prior study. There are numerous irregular confluent lung nodules are identified bilaterally, unchanged. Right middle lobe collapse, obscuring the right hilus, unchanged. The patient was found to be having expiratory wheezing and COPD exacerbation and has been admitted for COPD exacerbation, acute respiratory failure with hypoxia, Post obstructive pneumonia, leucocytosis and tachycardia and uncontrolled pain with difficulty in ambulation. Acute COPD exacerbation. On prednisone taper, nebulizer treatments and supplemental oxygen. Singulair, cetirizine Acute hypoxic respiratory failure . due to PE, lung ca, copd ex. and possible postobstructive pneumonia with increased infiltrates on cxr and fluid overload lasix prn. Post obstructive pneumonia finished a course of zosyn and doxy. Leukocytosis: improving. ddx: worsening lung ca with postobstructive pna and steroids Procalcitonin from 06/20 was only 1.47 Pulmonary embolism. On Lovenox 1 mg per kg secondary to adenocarcinoma of the lung and hypercoagulable state. Lung cancer adenocarcinoma of the lung, stage IV. Mucinous type with metastatic lesion to the right iliac wing and eroding into the sacrum with difficulty ambulating due to severe pain. started on RT on 06/24 She is managed as outpatient by Dr. Kavya Pang, who will determine the rest of her management when she is discharged. Pain Control: seen by pain management MSIR 30 mg by mouth twice a day and will ad MSIR 15 mg q6 hours prn. will dc oxy codone Urinary retention resolved. Persistent Sinus tachycardia secondary to PE, respiratory distress, COPD and lung cancer. not on any meds. Cancer cachexia. Nutritional consultation for supplemental nutrition. Currently on three times a day Boost. DME requirement: Hospital bed as she has metastatic lung cancer metastatic to bone , COPD, lung collapse So is SOB and has severe back pain so requires body positioning with head end elevation to greater than 30 degree for pain control and help with he breathing which is not possible with an ordinary bed. Patient requires frequent and immediate changes in body positioning due to severe pain and SOB. Has gait instability with generalized weakness and SOB , needing oxygen needed a 4 wheeled walker with seat and brakes, commode. DISCHARGE MEDICATIONS: Please see below. ALLERGIES: Please see below. PHYSICAL EXAMINATION ON DISCHARGE: VITAL SIGNS: Please see below. GEN: Comfortable sitting up in bed. HEENT: Normocephalic , atraumatic , No pallor. No icterus. No cyanosis. Trachea is midline. Mucus membranes moist. Neck: No JVD no thyromegaly LUNGS: Diminished. Bilateral expiratory wheezing. coarse breath sounds. Prol onged expiration. HEART: S1, S2. Sinus tachycardia. No murmurs, rubs or gallops. ABDOMEN: Soft, non tender, non distended. Positive bowel sounds. No rebound or guarding or hepatosplenomegaly. The patient continues to have some erythema, bruising, and tender right iliac post lumbar puncture lesion, which is not fluctuant and not indurated. EXTREMITIES: No cyanosis or clubbing, there is bilateral 1+ edema SKIN: No rash or breakdown. The patient continues to have some erythema, bruising, and tender right iliac post lumbar puncture lesion, which is not fluctuant and not indurated. NEURO: no focal neurodeficits, awake, alert , oriented x 3 LABORATORY DATA: Please see below. PROGNOSIS: Guarded ACTIVITY: [As tolerated]. DIET: As tolerated DISCHARGE PLAN: Home with services DISPOSITION: . DISCHARGE INSTRUCTIONS: Follow up with Dr Pang in 1 week Continue RT. DISCHARGE CONDITION: [Stable]. TIME SPENT ON DISCHARGE: 35 minutes. Vital Signs/I&Os Vital Signs Date Time Temp Pulse Resp B/P (MAP) Pulse Ox O2 Delivery O2 Flow Rate FiO2 06/30/19 16:32 93 Nasal Cannula 2.0 06/30/19 15:07 16 06/30/19 14:00 97.6 122 115/73 (87) I&O- Last 24 Hours up to 6 AM 06/30/19 05:59 Intake Total 470 ml Output Total 1800 ml Balance -1330 ml Laboratory Data Labs 24H Laboratory Tests 2 06/30/19 06:19: Immature Granulocyte % (Auto) 1.4, White Blood Count 16.8H, Red Blood Count 3.62L, Hemoglobin 12.0, Hematocrit 35.8L, Mean Corpuscular Volume 98.9H, Mean Corpuscular Hemoglobin 33.1H, Mean Corpuscular Hemoglobin Concent 33.5, Red Cell Distribution Width 14.9H, Platelet Count 464H, Neutrophils (%) (Auto) 85.1H, Lymphocytes (%) (Auto) 5.5L, Monocytes (%) (Auto) 6.8H, Eosinophils (%) (Auto) 0.8, Basophils (%) (Auto) 0.4, Neutrophils # (Auto) 14.3H, Lymphocytes # (Auto) 0.9L, Monocytes # (Auto) 1.2H, Eosinophils # (Auto) 0.1, Basophils # (Auto) 0.1, Nucleated Red Blood Cells % (auto) 0.0, Anion Gap 2L, Glomerular Filtration Rate > 60.0, Blood Urea Nitrogen 17, Creatinine 0.34L, Sodium Level 134L, Potassium Level 3.6, Chloride Level 98, Carbon Dioxide Level 34H, Calcium Level 9.3 CBC/BMP Laboratory Tests 06/30/19 06:19 Red Blood Count 3.62 L, Mean Corpuscular Volume 98.9 H, Mean Corpuscular Hemoglo bin 33.1 H, Mean Corpuscular Hemoglobin Concent 33.5, Red Cell Distribution Width 14.9 H, Neutrophils (%) (Auto) 85.1 H, Lymphocytes (%) (Auto) 5.5 L, Monocytes (%) (Auto) 6.8 H, Eosinophils (%) (Auto) 0.8, Basophils (%) (Auto) 0.4, Neutrophils # (Auto) 14.3 H, Lymphocytes # (Auto) 0.9 L, Monocytes # (Auto) 1.2 H, Eosinophils # (Auto) 0.1, Basophils # (Auto) 0.1, Calcium Level 9.3 Microbiology Microbiology 06/25/19 Gram Stain - Final, Complete 06/25/19 Sputum Culture - Final, Complete 06/22/19 Respiratory Virus Panel (PCR) ([facility]) - Final, Complete Discharge Medications Scheduled Bacitracin (Bacitracin) 28.4 Gm Oint...g., 0 DOSE TOP BID Cetirizine HCl (Cetirizine HCl) 10 Mg Tablet, 10 MG PO DAILY, (Reported) Docusate Sodium (Docusate Sodium) 100 Mg Tablet, 1 TAB PO BID Doxycycline Hyclate (Doxycycline Hyclate) 100 Mg Tablet, 100 MG PO BID Enoxaparin Sodium (Enoxaparin Sodium) 80 Mg/0.8 Ml Syringe, 80 MG SC DAILY for pulmonary embolism pulmonary embolism in patient with cancer Ergocalciferol (Vitamin D2) (Vitamin D2) 50,000 Unit Capsule, 50,000 UNIT PO QWEEK, (Reported) MONDAYS Famotidine (Famotidine) 20 Mg Tablet, 40 MG PO BID Ipratropium [place] (Ipratropium [place]) 0.2 Mg/1 Ml Solution, 0.5 MG INH RQ6H Levalbuterol Hydrochloride (Xopenex Concentrate) 1.25 Mg/0.5 Ml Vial.neb, 0.63 MG INH RQ6H Montelukast Sodium (Montelukast Sodium) 10 Mg Tablet, 10 MG PO DAILY, (Reported) Morphine Sulfate (Morphine Sulfate) 30 Mg Tablet, 30 MG PO BID Prednisone (Prednisone) 10 Mg Tablet, 10 MG PO TAPER 3 tabs daily x 3 days, then 2 tabs daily x 3 days, then 1 tab daily x 3 days and stop Sennosides (Senna) 8.6 Mg Tablet, 2 TAB PO DAILY for constipation Scheduled PRN Albuterol Sulfate (Albuterol Sulfate Hfa) 8.5 Gm Hfa.aer.ad, 2 PUFFS PO QID PRN for SOB/COUGH, (Reported) Fluticasone Propionate (Fluticasone Propionate) 16 Gm [place].susp, 2 SPRAY NA DAILY PRN for ALLERGIES, (Reported) Furosemide (Lasix) 40 Mg Tablet, 1 TAB PO DAILYPRN PRN for SYMPTOM RELIEF If leg swelling Lidocaine (Lidocaine) 120 Gm Oint...g., 0 DOSE TOP Q4HP PRN for pain Morphine Sulfate (Morphine Sulfate) 15 Mg Tablet, 1 TAB PO Q6HP PRN for pain Miscellaneous Medications Ibuprofen (Ibuprofen) 600 Mg Tablet, (Reported) Allergies Coded Allergies: No Known Allergies (Verified Allergy, Unknown, 03/28/19) REJI MORTON MD Jun 30, 2019 17:05
[2019-07-01] MEDS ORDERED: ROXI1TAB2 PO (17:00)
== END 2019-07-01 18:06 | disposition home or self-care (01) | DRG 140 ==
LOC: M ED 10:45 → M ED INP 14:30 → M PCU 15:49 → M MSPAV 06-22 15:21 → M PCU 06-23 18:05 → M MSPAV 06-25 21:27
PROVIDERS: ADMIT General Practice; ATTEND Internal Medicine Nephrology
DX: J44.1 Chronic obstructive pulmonary disease with (acute) exacerbation (principal); I26.99 Other pulmonary embolism without acute cor pulmonale; J96.01 Acute respiratory failure with hypoxia; J18.9 Pneumonia, unspecified organism; R64 Cachexia; C79.51 Secondary malignant neoplasm of bone; C34.91 Malignant neoplasm of unspecified part of right bronchus or lung; G89.3 Neoplasm related pain (acute) (chronic); J44.0 Chronic obstructive pulmonary disease with (acute) lower respiratory infection; R00.0 Tachycardia, unspecified; K59.09 Other constipation; T40.2X5A Adverse effect of other opioids, initial encounter; R33.9 Retention of urine, unspecified; Z88.0 Allergy status to penicillin; Z87.891 Personal history of nicotine dependence

== ENCOUNTER → 2019-07-01 | Outpatient (RCR) | payer OTHER ==
--- NOTE | 2019-06-21 09:19 | RADONC ---
RADIATION ONCOLOGY CONSULTATION NOTE DATE: 06/20/2019 CHART #: [id number] DIAGNOSIS: Right lung adenocarcinoma, Stage IV, widely metastatic. ECOG PERFORMANCE STATUS: 3. CONSULTATION NOTE: Ms. Gonzalez is a delightful 44-year-old white female with the diagnosis of widely metastatic adenocarcinoma of the lung who is presenting to us today with significant pain involving her right iliac wing and sacral regions. HISTORY OF PRESENT ILLNESS: The patient reports that she has had a long history of chronic low back pain and sciatica. She reports that she had trauma to that area several years ago. More recently, a CT scan was done of her low back on 05/16/2019. This revealed an expansile lytic lesion in the right ileum with associated soft tissue mass and calcifications. There was loss of definition in the adjacent right lateral sacral margin. Biopsy was undertaken on 06/10/2019 and revealed a metastatic adenocarcinoma with mucinous features consistent with lung origin. A CT scan of the chest was done on 06/19/2019 and showed numerous irregular confluent lung nodules bilaterally. There was a right middle lobe collapse obscuring the right hilus. No notable lymphadenopathy was seen. It noted that the small pleural effusions had resolved. The patient is now being referred to us for consideration of palliative radiation therapy. PAST MEDICAL HISTORY: The patient's past medical history is positive for COPD, asthma and emphysema. In addition, the patient has had a cholecystectomy. ALLERGIES: The patient has NO KNOWN DRUG ALLERGIES. FAMILY HISTORY: The patient is adopted and does not know her family history. REVIEW OF SYSTEMS: The patient's review of systems is positive for shortness of breath. She reports that she has to sit up to breathe comfortably. In addition, she has a significant amount of right-sided back and hip pain radiating down the legs. She is on nasal oxygen. She has had weight loss as well as difficulty sleeping. The remainder of her review of systems is noncontributory. Denies nausea, vomiting, fevers, chills, night sweats, diplopia, headaches, anxiety or depression, anorexia, weight loss, visual disturbances, chest pain, urinary or bowel difficulties, bone pain, or neurological problems. PHYSICAL EXAMINATION: The patient is in her hospital bed, sitting up on nasal oxygen. HEENT: Exam is normocephalic, atraumatic. Extraocular movements are intact. Further physical examination was deferred at this time. ASSESSMENT: I have personally reviewed the patient's CT scan showing the significantly large expansile mass in the right iliac region eroding into the sacrum, measuring approximately 7.2 cm x 5.5 cm x 11.2 cm. This extended soft tissue garcia into the adjacent posterior gluteal muscle and right posterior paraspinal muscle bodies. Clearly, I believe this patient is a candidate for palliative radiation therapy and I have so informed her. I have discussed with the patient in detail the potential benefits as well as possible acute and chronic sequelae of external beam radiation therapy. We discussed logistics of treatment planning, simulation and subsequent fractionated daily radiation treatments. I have scheduled the patient for simulation and initiation of treatment planning which will be done today. Radiation treatments will then begin as soon as planning is complete. Thank you for allowing us to participate in the care of this very pleasant and unfortunate woman. I hope we can be of some benefit to her. As always warm regards. cc: MD Kavya Gregg MD
--- NOTE | 2019-06-21 10:13 | RADONC ---
RADIATION ONCOLOGY SIMULATION NOTE DATE OF VISIT: 06/20/2019 CHART NUMBER: [id number] Ms. Gonzalez was taken to the CT scan for CT simulation of her sacral mass field. CT was accomplished without difficulty or discomfort. Radiation treatment planning is underway and radiation treatments will begin subsequently. An immobilization device was created without difficulty or discomfort. This will be used throughout the course of treatment. I was physically present at the course of CT simulation.
--- NOTE | 2019-06-26 06:39 | RADONC ---
RADIATION ONCOLOGY PROGRESS NOTE: DATE: 06/25/2019 CHART NUMBER: [id number] Ms. Gonzalez underwent her first fraction of 300 cGy today to her right ileum. It was tolerated without difficulty or discomfort. The patient's physical exam remained unchanged as this was her first fraction of radiation. Ms. Gonzalez tolerated her treatment well and radiation will continue as scheduled.
[~2019-07-01] MED LIST changes: +BACI50OI TOP; +DOCU100T8 PO; +DOXY100T PO; +FAMO20TA PO; +IBUP-1022; +IPRA2IN INH; +LASI40TA9 PO; +LEVA12INH INH; +LIDO1.1P TOP; +LIDO5OIN19 TOP; +MORP15TA2 PO; +MSIR30TA PO; +ROXI1TAB2 PO; +SENN8.6T58 PO
--- NOTE | 2019-07-02 08:26 | RADONC ---
DATE: 07/01/2019 CHART NUMBER: [id number] Ms. Gonzalez is presently at a dose of 1800 cGy to her right ileum and is tolerating treatments quite well at this point with no complaints related to her radiation therapy. She is having no nausea or other difficulties at this time. The patient's review of system remains unchanged. PHYSICAL EXAMINATION: The patient's skin is in good condition with no evidence of moist or dry desquamation. The remainder of her physical exam remains unchanged as well. Ms. Gonzalez is tolerating treatments without difficulty. The radiation will continue as scheduled.
== END ==
LOC: M ONCR 06-20 12:38
PROVIDERS: ATTEND Radiology Radiation Oncology
DX: C79.51 Secondary malignant neoplasm of bone (principal)

== ENCOUNTER 2019-07-05 14:30 | Outpatient (RCR) | payer OTHER ==
[~2019-07-05 14:30] MED LIST changes: -IBUP-1022; +IBUP-1022 PO
--- NOTE | 2019-07-08 10:24 | RADONC ---
RADIATION ONCOLOGY TREATMENT SUMMARY DATE: 07/05/2019 CHART #: [id number] DIAGNOSIS: Right lung adenocarcinoma. STAGE: Stage IV, widely metastatic. ECOG PERFORMANCE STATUS: 3. TREATMENT SUMMARY: Ms. Gonzalez is a very pleasant 44-year-old white female with the diagnosis of widely metastatic adenocarcinoma of the lung who presented to us for consideration of palliative radiation therapy to a mass involving her right iliac wing and sacral region. We treated the patient to the right iliac wing and sacral region for a total dose of 3000 cGy delivered in 10 fractions of 300 cGy each over 11 elapsed days from 06/24/2019 through 07/05/2019. The patient's iliac wing was treated on the linear accelerator utilizing a 3-D conformal technique with a combination of 15X and 10X photons and oblique hammer. Ms. Gonzalez tolerated her treatments quite well and was able complete therapy as prescribed without interruption. I have scheduled the patient to see me again in 1 month for further followup. She will also continue to be followed by her other physicians as well. Thank you for allowing us to participate in the care of this very pleasant woman. If I could be of any further assistance or provide you with any information, please feel free to contact me at anytime. As always warm regards. cc: MD Kavya Gregg MD
[2019-07-09] MEDS ORDERED: HYDR-4571 PO (15:10)
[2019-07-09] MEDS ORDERED: ALBU83IN INH (15:11)
[2019-07-09] MEDS ORDERED: COLA100C5 PO (16:50)
[2019-07-09] MEDS ORDERED: FURO40TA2 PO (16:50)
[2019-07-09] MEDS ORDERED: LEVA0.6322 INH (16:50)
[2019-07-09] MEDS ORDERED: FAMO20TA5 PO (16:50)
[2019-07-09] MEDS ORDERED: IPRA2IN INH (16:50)
[2019-07-09] MEDS ORDERED: LIDO5OIN19 TOP (16:50)
[2019-07-09] MEDS ORDERED: BACI500O8 TOP (16:50)
[2019-07-11] MEDS ORDERED: DEXA4TA PO (14:17)
[2019-07-11] MEDS ORDERED: ONDA8TAB7 PO (14:17)
[2019-07-11] MEDS ORDERED: FOLI1TAB11 PO (14:17)
[2019-07-11] MEDS ORDERED: PROC10TA4 PO (14:17)
== END 2019-07-18 ==
LOC: M ONCR 14:30
PROVIDERS: ATTEND Radiology Radiation Oncology
DX: C79.51 Secondary malignant neoplasm of bone (principal)

== ENCOUNTER 2019-07-09 14:09 | Inpatient (IN) | payer OTHER ==
[~2019-07-09] VITALS: Ht 152.4 cm; Wt 38.5 kg
[2019-07-09] MEDS ORDERED: IPRATROPIUM 0.5MG/ALBUTEROL 2.5MG INH SOL UD 3ML (DUONEB)(J7620) NEB PRN (14:30)
[2019-07-09] MEDS ORDERED: methylPREDNISolone INJ 125 MG/2 ML VIAL (J2930) IV ONE (14:30)
[2019-07-09] MEDS: LEVALBUTEROL 1.25 MG/0.5 ML CONCENTRATE NEB NEB PRN ×4 (14:40→23:39)
[2019-07-09 14:58] LABS: BASO % 0.2 % (0.0-1.0); EOS # 0.1 10^3/uL (0.0-0.5); EOS % 0.7 % (0.0-3.0); HEMATOCRIT 37.1 % (36.0-47.0); HEMOGLOBIN 12.8 g/dl (12.0-15.5); LYMPH # 0.4 10^3/uL (1.5-5.0); LYMPH % 2.5 % (24.0-44.0); MEAN CORPUSCULAR HEMOGLOBIN 33.5 pg (27.0-33.0); MEAN CORPUSCULAR HGB CONC 34.5 g/dl (32.0-36.5); MEAN CORPUSCULAR VOLUME 97.1 fl (80.0-96.0); MONO # 0.5 10^3/uL (0.0-0.8); MONO % 3.7 % (0.0-5.0); NEUTROPHILS # 13.3 10^3/uL (1.5-8.5); NEUTROPHILS % 92.3 % (36.0-66.0); PLATELET COUNT, AUTOMATED 363 10^3/uL (150-450); RED BLOOD COUNT 3.82 10^6/uL (4.00-5.40); WHITE BLOOD COUNT 14.4 10^3/uL (4.0-10.0)
--- NOTE | 2019-07-09 15:08 | REP ---
Portable chest, single AP view with the patient sitting: Comparison is 06/24/2019. There is a comparison chest CT dated 06/29/2019. There are numerous confluent lung nodules diffusely throughout both lungs, similar to the prior study. The superimposed focal infiltrate laterally in the right lung previously has significantly decreased in size and is almost entirely resolved. Cardiac size is normal. The samuel, mediastinum, skeletal structures are unremarkable. Impression: Numerous confluent lung nodules, unchanged from prior studies. The right upper lobe infiltrate and 06/24/2019 has almost entirely resolved. Electronically Signed by Ramón Liang MD 07/09/2019 02:59 P
[2019-07-09] MEDS ORDERED: HYDR-4571 PO (15:10)
[2019-07-09] MEDS ORDERED: ALBU83IN INH (15:11)
[2019-07-09 15:17] LABS: ABG HCO3 31.4 MEQ/L (22.0-26.0); ABG PARTIAL PRESSURE CO2 43.7 mmHg (35.0-45.0); ABG PARTIAL PRESSURE O2 57.3 mmHg (75.0-100.0); ABG STANDARD HCO3 30.7 MEQ/L (22.0-26.0); ABG TOTAL CO2 32.8 MEQ/L (22.0-29.0); ABG pH (ARTERIAL) 7.475 UNITS (7.350-7.450)
[2019-07-09 15:22] LABS: BLOOD UREA NITROGEN 24 MG/DL (7-18); CALCIUM LEVEL 9.3 MG/DL (8.5-10.1); CARBON DIOXIDE LEVEL 34 MEQ/L (21-32); CHLORIDE LEVEL 92 MEQ/L (98-107); GLOMERULAR FILTRATION RATE > 60.0 (>58); GLUCOSE, FASTING 123 MG/DL (70-100); POTASSIUM SERUM 3.3 MEQ/L (3.5-5.1); SODIUM LEVEL 133 MEQ/L (136-145)
[2019-07-09] MEDS ORDERED: IPRA2IN INH (16:50)
[2019-07-09] MEDS ORDERED: FAMO20TA5 PO (16:50)
[2019-07-09] MEDS ORDERED: LIDO5OIN19 TOP (16:50)
[2019-07-09] MEDS ORDERED: COLA100C5 PO (16:50)
[2019-07-09] MEDS ORDERED: LEVA0.6322 INH (16:50)
[2019-07-09] MEDS ORDERED: FURO40TA2 PO (16:50)
[2019-07-09] MEDS ORDERED: BACI500O8 TOP (16:50)
[2019-07-09] MEDS ORDERED: LIDOCAINE 5% OINT 30 GM TOP PRN (17:15)
[2019-07-09] MEDS ORDERED: FUROSEMIDE 40 MG/4 ML VIAL (J1940) IV ONE (17:15)
[2019-07-09] MEDS ORDERED: POTASSIUM CHLORIDE 10 MEQ SR TABLET PO ONE (17:15)
[2019-07-09] MEDS ORDERED: ENOXAPARIN 80 MG/0.8 ML SYRINGE (J1650) SC SCH (18:00)
[2019-07-09 18:43] VITALS: BP 125/78
[2019-07-09] MEDS: oxyCODONE 5MG TAB PO PRN (19:09)
[2019-07-09 19:30] VITALS: BP 111/74
[2019-07-09] MEDS: IPRATROPIUM 0.5MG/ALBUTEROL 2.5MG INH SOL UD 3ML (DUONEB)(J7620) NEB SCH ×2 (19:44→23:01)
[2019-07-09] MEDS ORDERED: POTASSIUM CHLORIDE 10% LIQ 20 MEQ/15 ML UDC PO ONE (20:00)
--- NOTE | 2019-07-09 20:42 | ECGEPIP ---
[facility] - ED Test Date: 2019-07-09 Pat Name: ORLANDO PARISI Department: Room: - Gender: Female Otorhinolaryngologist: [place] : 1975 Requested By: Anthony Curtis Order Number: [id number] Reading MD: Anthony Pitt Measurements Intervals [place] Rate: 122 P: 68 MT: 108 QRS: 121 QRSD: 77 T: 23 QT: 277 QTc: 396 Interpretive Statements SINUS TACHYCARDIA WITH SHORT MT INTERVAL PATTERN CONSISTENT WITH PULMONARY DISEASE POSSIBLE RIGHT VENTRICULAR HYPERTROPHY SIMILAR TO 06/23/19 Electronically Signed on 07-09-2019 20:42:02 EDT by Anthony Pitt
[2019-07-09] MEDS: BACITRACIN OINT 30GM TOP SCH (21:15)
[2019-07-09 21:30] VITALS: BP 109/71
[2019-07-09 22:15] VITALS: BP 109/72
--- NOTE | 2019-07-09 22:39 | HPEPDOC ---
General Date of Admission Jul 09, 2019 at 17:07 Date of Service: Jul 09, 2019 Chief Complaint The patient is a 44-year-old female admitted with a reason for visit of Adenocarcinoma Of Lung Stage 4, Copd With Exacerba. Source: Patient, Family, RN/MD, Old records Exam Limitations: No limitations Severity: Severe History of Present Illness This is a 44-year-old female with over 30 pack year history of smoking, advanced COPD, recent diagnosis of widely metastatic adenocarcinoma of lungs in may 2019, metastais to illiac wing on the right and sacrum s/p palliative RT, Pulmonary embolism on 05/29/19 on lovenox, Chronic hypoxic respiratory failure on oxygen since june was at the Pulmonary office this morning for a follow up appointment after discharge from hospital 1 week ago. During intake vitals she was noted to have spo2 of 60% with 5 liter oxygen which did not improve with nasal canula oxygen and needed mask oxygen so ambulance was called and she was sent to the ED. Patient complains of continuous SOB on minimal exertion and even at rest. She says that her oxygen is not the high flow one and does not go up to 5 liters. On discharge her recommendation was 2 to 3 liters during ambulation as she was able to maintain 88% to 90% oxygen saturation with that amount. She also complains of constant low back pain and right hip bone pain, dull aching in nature sometimes sharp, 8/10 in intensity , no radiation, worsens with mobilization. She also complained of increased bipedal swelling. She was admitted for acute on chronic respiratory failure with hypoxia. Home Medications Scheduled Bacitracin (Bacitracin) 28.4 Gm Oint...g., 1 DOSE TOP BID, (Reported) APPLY TO BIOPSY SITE Cetirizine HCl (Cetirizine HCl) 10 Mg Tablet, 10 MG PO DAILY, (Reported) Enoxaparin Sodium (Enoxaparin Sodium) 80 Mg/0.8 Ml Syringe, 80 MG SC DAILY for pulmonary embolism pulmonary embolism in patient with cancer Ergocalciferol (Vitamin D2) (Vitamin D2) 50,000 Unit Capsule, 50,000 UNIT PO Q WEEK, (Reported) MONDAYS Hydrocodone/Acetaminophen (Hydrocodone-Acetamin 5-325 mg) 1 Each Tablet, 1 TAB PO TIDP, (Reported) Ipratropium [place] (Ipratropium [place]) 0.2 Mg/1 Ml Solution, 0.2 MG INH Q6H, (Reported) MIX WITH LEVALBUTEROL Levalbuterol HCl (Levalbuterol HCl) 0.63 Mg/3 Ml Vial.neb, 0.63 MG INH Q6H, (Reported) MIX WITH IPRATROPIUM Montelukast Sodium (Montelukast Sodium) 10 Mg Tablet, 10 MG PO DAILY, (Reported) Scheduled PRN Docusate Sodium (Colace) 100 Mg Capsule, 100 MG PO BID PRN for CONSTIPATION, (Reported) Famotidine (Famotidine) 20 Mg Tablet, 40 MG PO BID PRN for HEARTBURN, (Reported) Fluticasone Propionate (Fluticasone Propionate) 16 Gm [place].susp, 2 SPRAY NA DAILY PRN for ALLERGIES, (Reported) Furosemide (Furosemide) 40 Mg Tablet, 40 MG PO DAILY PRN for SWELLING, (Reported) Ibuprofen (Ibuprofen) 600 Mg Tablet, 600 MG PO TID PRN for PAIN, (Reported) Lidocaine (Lidocaine) 120 Gm Oint...g., 1 DOSE TOP Q4H PRN for PAIN, (Reported) APPLY TO BACK Morphine Sulfate (Morphine Sulfate) 30 Mg Tablet, 1 TAB PO BIDP PRN for pain Allergies Coded Allergies: No Known Allergies (Verified Allergy, Unknown, 03/28/19) Past Medical History Medical History Metastatic adenocarcinoma of Lungs. Right illiac wing and sacrum metastasis finished RT COPD Chronic respiratory failure with hypoxia Cancer cachexia Sinus Tachycardia Pulmonary embolism Severe pain requiring opiates. Family History Patient is adopted so unknown family history. Social History * Smoker: former Smoker, quit less than 1 year Alcohol: Denies Drugs: marijuana (occationally) A-FIB/CHADSVASC A-FIB History Current/History of A-Fib/PAF?: No Review of Systems Constitutional: Reports: Weakness, Fatigue, Weight Loss; Denies: Chills, Fever, Night Sweats Eyes: Denies: Pain, Vision change ENT: Denies: Head Aches, Ear Pain, Dysphagia Skin: Denies: Rash, Lesions, Breakdown Pulmonary: Reports: Dyspnea, Cough Cardiovascular: Reports: Palpitations, Orthopnea, Edema Gastrointestinal: Reports: Constipation; Denies: Nausea, Vomiting, Abdominal Pain, Diarrhea Genitourinary: Reports: Frequency Hematologic: Denies: Bruising, Bleeding Excessively Musculoskeletal: Reports: Back Pain, Joint Pain Psych: Reports: Anxiety, Depression Physical Examination General Exam: Positive: Alert, Cooperative, Severe Distress (2 to 3 word co nversational dyspnea.) Eye Exam: Positive: PERRLA, Conjunctiva & lids normal, EOMI; Negative: Sclera icteric ENT Exam: Positive: Atraumatic, Mucous membr. moist/pink, Pharynx Normal Neck Exam: Positive: Supple; Negative: JVD, thyromegaly Chest Exam: Positive: Rales, Rhonchi, Diminished, Other (coarse breath sounds bilaterally. ) Heart Exam: Positive: Tachycardic, Regular Rhythm, Normal S1, Normal S2; Negative: Rate Normal, Bradycardic, Irregular Rhythm, Gallops, Murmurs, Rubs Telemetry: Positive: Sinus, Tachycardia Abdomen Exam: Positive: Normal bowel sounds, Soft; Negative: Tenderness, Hepatospenomegaly Extremity Exam: Positive: Edema Vital Signs Vital Signs Date Time Temp Pulse Resp B/P (MAP) Pulse Ox O2 Delivery O2 Flow Rate FiO2 07/09/19 21:30 97.5 136 26 109/71 (84) 98 5.0 07/09/19 17:20 Nasal Cannula Laboratory Data Labs 24H Laboratory Tests 2 07/09/19 14:27: Blood Gas Bicarbonate Standard 30.7H, Arterial Blood pH 7.475H, Arterial Blood Partial Pressure CO2 43.7, Arterial Blood Partial Pressure O2 57.3L, Arterial Blood Total CO2 32.8H, Arterial Blood HCO3 31.4H, Arterial Blood Base Excess 7.0H, Arterial Blood Oxygen Saturation 90.0L 07/09/19 14:39: Immature Granulocyte % (Auto) 0.6, White Blood Count 14.4H, Red Blood Count 3.82L, Hemoglobin 12.8, Hematocrit 37.1, Mean Corpuscular Volume 97.1H, Mean Corpuscular Hemoglobin 33.5H, Mean Corpuscular Hemoglobin Concent 34.5, Red Cell Distribution Width 14.5, Platelet Count 363, Neutrophils (%) (Auto) 92.3H, Lymphocytes (%) (Auto) 2.5L, Monocytes (%) (Auto) 3.7, Eosinophils (%) (Auto) 0.7, Basophils (%) (Auto) 0.2, Neutrophils # (Auto) 13.3H, Lymphocytes # (Auto) 0.4L, Monocytes # (Auto) 0.5, Eosinophils # (Auto) 0.1, Basophils # (Auto) 0.0, Nucleated Red Blood Cells % (auto) 0.0, Anion Gap 7L, Glomerular Filtration Rate > 60.0, Lactic Acid Level 1.1, Blood Urea Nitrogen 24H, Creatinine 0.30L, Sodium Level 133L, Potassium Level 3.3L, Chloride Level 92L, Carbon Dioxide Level 34H, Calcium Level 9.3 CBC/BMP Laboratory Tests 07/09/19 14:39 Red Blood Count 3.82 L, Mean Corpuscular Volume 97.1 H, Mean Corpuscular Hemoglobin 33.5 H, Mean Corpuscular Hemoglobin Concent 34.5, Red Cell Distribution Width 14.5, Neutrophils (%) (Auto) 92.3 H, Lymphocytes (%) (Auto) 2.5 L, Monocytes (%) (Auto) 3.7, Eosinophils (%) (Auto) 0.7, Basophils (%) (Auto) 0.2, Neutrophils # (Auto) 13.3 H, Lymphocytes # (Auto) 0.4 L, Monocytes # (Auto) 0.5, Eosinophils # (Auto) 0.1, Basophils # (Auto) 0.0, Calcium Level 9.3 Microbiology Microbiology 07/09/19 Blood Culture, Received Pending 07/09/19 Blood Culture, Received Pending Assessment/Plan This is a 44-year-old female with over 30 pack year history of smoking, advanced COPD, recent diagnosis of widely metastatic adenocarcinoma of lungs in may 2019, metastais to illiac wing on the right and sacrum s/p palliative RT, Pulmonary embolism on 05/29/19 on lovenox, Chronic hypoxic respiratory failure on oxygen since june was at the Pulmonary office this morning for a follow up appointment after discharge from hospital 1 week ago. During intake vitals she was noted to have spo2 of 60% with 5 liter oxygen which did not improve with nasal canula oxygen and needed mask oxygen so ambulance was called and she was sent to the ED. Patient complains of continuous SOB on minimal exertion and even at rest. She says that her oxygen is not the high flow one and does not go up to 5 liters. On discharge her recommendation was 2 to 3 liters during ambulation as she was able to maintain 88% to 90% oxygen saturation with that amount. She also complains of constant low back pain and right hip bone pain, dull aching in nature sometimes sharp, 8/10 in intensity , no radiation, worsens with mobilization. She also complained of increased bipedal swelling. She was admitted for acute on chronic respiratory failure with hypoxia. Acute on chronic hypoxic respiratory failure Due to COPD and laung cancer possible fluid overload also. will also get an echo to rule out tachycardia cardiomyopathy. duonebs, levalbuterol prn, high flow or comfort flow oxygen will give lasix prn. Pulmonary embolism. On Lovenox 1.5 mg per kg/ day secondary to adenocarcinoma of the lung and hypercoagulable state. Widely metastatic Lung cancer adenocarcinoma of the lung, stage IV. Mucinous type with metastatic lesion to the right iliac wing and eroding into the sacrum with difficulty ambulating due to severe pain. started on RT on 06/24 and finished on 07/08/[address] Engle She is managed as outpatient by Dr. Kavya Pang, who will determine the rest of her management when she is discharged. Pain Control: discussed with pain management in last admission MSIR 30 mg by mouth twice a day and oxycodone 5 mg q 4 hours prn. Persistent Sinus tachycardia secondary to PE, respiratory distress, COPD and lung cancer. not on any meds at present willget ECHo to rule out tachycardia cardiomyopathy. will give lasix prn. Persistent leucocytosis possibly related to respiratory distress and cancer. Severe protein calorie malnutrion BMI of 18.4 this may be falsely elevated a pateint does have fluid overload. will check albumin levels. Cancer cachexia. Has gait instability with generalized weakness and SOB , needing oxygen needed a 4 wheeled walker with seat and brakes, commode. Plan / VTE VTE Prophylaxis Ordered?: Yes REJI MORTON MD Jul 09, 2019 22:39
[2019-07-09 23:30] VITALS: BP 115/76
[2019-07-09] MEDS: MORPHINE 30 MG TAB **MSIR PO PRN (23:39)
[2019-07-10] MEDS: methylPREDNISolone INJ 125 MG/2 ML VIAL (J2930) IV SCH ×2 (00:16→05:32)
[2019-07-10] MEDS: LEVALBUTEROL 1.25 MG/0.5 ML CONCENTRATE NEB INH SCH ×6 (03:08→19:11)
[2019-07-10] MEDS: oxyCODONE 5MG TAB PO PRN ×2 (05:51→17:39)
[2019-07-10 05:58] LABS: BASO % 0.1 % (0.0-1.0); HEMATOCRIT 37.2 % (36.0-47.0); HEMOGLOBIN 12.5 g/dl (12.0-15.5); LYMPH # 0.4 10^3/uL (1.5-5.0); LYMPH % 4.5 % (24.0-44.0); MEAN CORPUSCULAR HEMOGLOBIN 32.1 pg (27.0-33.0); MEAN CORPUSCULAR HGB CONC 33.6 g/dl (32.0-36.5); MEAN CORPUSCULAR VOLUME 95.6 fl (80.0-96.0); MONO # 0.2 10^3/uL (0.0-0.8); MONO % 1.9 % (0.0-5.0); NEUTROPHILS # 8.5 10^3/uL (1.5-8.5); NEUTROPHILS % 93.1 % (36.0-66.0); PLATELET COUNT, AUTOMATED 369 10^3/uL (150-450); RED BLOOD COUNT 3.89 10^6/uL (4.00-5.40); WHITE BLOOD COUNT 9.2 10^3/uL (4.0-10.0)
[2019-07-10 06:00] VITALS: BP 118/74
[2019-07-10 06:26] LABS: ALBUMIN 2.7 GM/DL (3.2-5.2); ALT/SGPT 40 U/L (12-78); BILIRUBIN,DIRECT < 0.1 MG/DL (0.0-0.2); BILIRUBIN,TOTAL 0.4 MG/DL (0.2-1.0); BLOOD UREA NITROGEN 23 MG/DL (7-18); CALCIUM LEVEL 9.1 MG/DL (8.5-10.1); CARBON DIOXIDE LEVEL 30 MEQ/L (21-32); CHLORIDE LEVEL 95 MEQ/L (98-107); CREATININE FOR GFR 0.28 MG/DL (0.55-1.30); GLOMERULAR FILTRATION RATE > 60.0 (>58); GLUCOSE, FASTING 126 MG/DL (70-100); SODIUM LEVEL 134 MEQ/L (136-145); TOTAL PROTEIN 6.9 GM/DL (6.4-8.2)
[2019-07-10 08:00] VITALS: BP 116/76
[2019-07-10] MEDS: CETIRIZINE (ZyrTEC) 10 MG TAB PO SCH (08:35)
[2019-07-10] MEDS: MONTELUKAST 10 MG TAB PO SCH (08:35)
[2019-07-10] MEDS: BACITRACIN OINT 30GM TOP SCH ×2 (08:36→21:00)
[2019-07-10] MEDS: FUROSEMIDE 40 MG/4 ML VIAL (J1940) IV SCH (09:49)
[2019-07-10] MEDS: MORPHINE 30 MG TAB **MSIR PO PRN ×2 (09:52→21:21)
--- NOTE | 2019-07-10 10:59 | IPNPDOC ---
Subjective Date Seen The patient was seen on 07/10/19. Subjective Chief Complaint/HPI More comfortable with the high flow oxygen this am . Extremely weak and fatigued, had excellent urine output after lasix. remains tachycardic 120s to 140s. No fever or chills. Objective Physical Examination General Exam: Positive: Alert, Cooperative, Severe Distress (2 to 3 word conversational dyspnea.) Eye Exam: Positive: PERRLA, Conjunctiva & lids normal, EOMI; Negative: Sclera icteric ENT Exam: Positive: Atraumatic, Mucous membr. moist/pink, Pharynx Normal Neck Exam: Positive: Supple; Negative: JVD, thyromegaly Chest Exam: Positive: Rales, Rhonchi, Diminished, Other (coarse breath sounds bilaterally. ) Heart Exam: Positive: Tachycardic, Regular Rhythm, Normal S1, Normal S2; Negative: Rate Normal, Bradycardic, Irregular Rhythm, Gallops, Murmurs, Rubs Telemetry: Positive: Sinus, Tachycardia Abdomen Exam: Positive: Normal bowel sounds, Soft; Negative: Tenderness, Hepatospenomegaly Extremity Exam: Positive: Edema Skin Exam: Positive: Nl turgor and temperature; Negative: Rash, Breakdown Neuro Exam: Positive: Normal Speech Assessment /Plan Assessment This is a 44-year-old female with over 30 pack year history of smoking, advanced COPD, recent diagnosis of widely metastatic adenocarcinoma of lungs in may 2019, metastais to illiac wing on the right and sacrum s/p palliative RT, Pulmonary embolism on 05/29/19 on lovenox, Chronic hypoxic respiratory failure on oxygen since june was at the Pulmonary office this morning for a follow up appointment after discharge from hospital 1 week ago. During intake vitals she was noted to have spo2 of 60% with 5 liter oxygen which did not improve with nasal canula oxygen and needed mask oxygen so ambulance was called and she was sent to the ED. Patient complains of continuous SOB on minimal exertion and even at rest. She says that her oxygen is not the high flow one and does not go up to 5 liters. On discharge her recommendation was 2 to 3 liters during ambulation as she was able to maintain 88% to 90% oxygen saturation with that amount. She also complains of constant low back pain and right hip bone pain, dull aching in nature sometimes sharp, 8/10 in intensity , no radiation, worsens with mobilization. She also complained of increased bipedal swelling. She was admitted for acute on chronic respiratory failure with hypoxia. Acute on chronic hypoxic respiratory failure Due to advanced COPD and lung cancer possible fluid overload also. will also get an echo to rule out tachycardia cardiomyopathy. duonebs, levalbuterol prn, high flow or comfort flow oxygen . have also started IV steroids. will give lasix prn. pulmonary has been consulted. Pulmonary embolism. On Lovenox 1.5 mg per kg/ day secondary to adenocarcinoma of the lung and hypercoagulable state. Widely metastatic Lung cancer adenocarcinoma of the lung, stage IV. Mucinous type with metastatic lesion to the right iliac wing and eroding into the sacrum with difficulty ambulating due to severe pain. started on RT on 06/24 and finished on 07/08/[address] Engle She is managed as outpatient by Dr. Kavya Pang, who will determine the rest of her management when she is discharged. Pain Control: discussed with pain management in last admission MSIR 30 mg by mouth twice a day and oxycodone 5 mg q 4 hours prn. Persistent Sinus tachycardia secondary to PE, respiratory distress, COPD and lung cancer. will consider starting on thiago. will get ECHo to rule out tachycardia cardiomyopathy. will give lasix prn. Persistent leucocytosis possibly related to respiratory distress and cancer. Severe protein calorie malnutrion BMI of 18.4 this may be falsely elevated a pateint does have fluid overload. will check albumin levels. Cancer cachexia. Has gait instability with generalized weakness and SOB , needing oxygen needed a 4 wheeled walker with seat and brakes, commode. Plan/VTE VTE Prophylaxis Ordered?: Yes VS, I&O, 24H, Fishbone Vital Signs/I&O Vital Signs Date Time Temp Pulse Resp B/P (MAP) Pulse Ox O2 Delivery O2 Flow Rate FiO2 07/10/19 05:51 18 5.0 07/09/19 23:30 143 115/76 (89) 07/09/19 21:30 97.5 94 07/09/19 17:20 Nasal Cannula I&O- Last 24 Hours up to 6 AM 07/10/19 06:00 Output Total 1200 ml Balance -1200 ml Laboratory Data 24H LABS Laboratory Tests 2 07/09/19 14:27: Blood Gas Bicarbonate Standard 30.7H, Arterial Blood pH 7.475H, Arterial Blood Partial Pressure CO2 43.7, Arterial Blood Partial Pressure O2 57.3L, Arterial Blood Total CO2 32.8H, Arterial Blood HCO3 31.4H, Arterial Blood Base Excess 7.0H, Arterial Blood Oxygen Saturation 90.0L 07/09/19 14:39: Immature Granulocyte % (Auto) 0.6, White Blood Count 14.4H, Red Blood Count 3.82L, Hemoglobin 12.8, Hematocrit 37.1, Mean Corpuscular Volume 97.1H, Mean Corpuscular Hemoglobin 33.5H, Mean Corpuscular Hemoglobin Concent 34.5, Red Cell Distribution Width 14.5, Platelet Count 363, Neutrophils (%) (Auto) 92.3H, Lymphocytes (%) (Auto) 2.5L, Monocytes (%) (Auto) 3.7, Eosinophils (%) (Auto) 0.7, Basophils (%) (Auto) 0.2, Neutrophils # (Auto) 13.3H, Lymphocytes # (Auto) 0.4L, Monocytes # (Auto) 0.5, Eosinophils # (Auto) 0.1, Basophils # (Auto) 0.0, Nucleated Red Blood Cells % (auto) 0.0, Anion Gap 7L, Glomerular Filtration Rate > 60.0, Lactic Acid Level 1.1, Blood Urea Nitrogen 24H, Creatinine 0.30L, Sodium Level 133L, Potassium Level 3.3L, Chloride Level 92L, Carbon Dioxide Level 34H, Calcium Level 9.3 07/10/19 05:25: Immature Granulocyte % (Auto) 0.4, White Blood Count 9.2, Red Blood Count 3.89L, Hemoglobin 12.5, Hematocrit 37.2, Mean Corpuscular Volume 95.6, Mean Corpuscular Hemoglobin 32.1, Mean Corpuscular Hemoglobin Concent 33.6, Red Cell Distribution Width 13.9, Platelet Count 369, Neutrophils (%) (Auto) 93.1H, Lymphocytes (%) (Auto) 4.5L, Monocytes (%) (Auto) 1.9, Eosinophils (%) (Auto) 0.0, Basophils (%) (Auto) 0.1, Neutrophils # (Auto) 8.5, Lymphocytes # (Auto) 0.4L, Monocytes # (Auto) 0.2, Eosinophils # (Auto) 0.0, Basophils # (Auto) 0.0, Nucleated Red Blood Cells % (auto) 0.0 CBC/BMP Laboratory Tests 07/09/19 14:39 Red Blood Count 3.82 L, Mean Corpuscular Volume 97.1 H, Mean Corpuscular Hemoglobin 33.5 H, Mean Corpuscular Hemoglobin Concent 34.5, Red Cell Distribu tion Width 14.5, Neutrophils (%) (Auto) 92.3 H, Lymphocytes (%) (Auto) 2.5 L, Monocytes (%) (Auto) 3.7, Eosinophils (%) (Auto) 0.7, Basophils (%) (Auto) 0.2, Neutrophils # (Auto) 13.3 H, Lymphocytes # (Auto) 0.4 L, Monocytes # (Auto) 0.5, Eosinophils # (Auto) 0.1, Basophils # (Auto) 0.0, Calcium Level 9.3 07/10/19 05:25 Red Blood Count 3.89 L, Mean Corpuscular Volume 95.6, Mean Corpuscular Hemoglobin 32.1, Mean Corpuscular Hemoglobin Concent 33.6, Red Cell Distribution Width 13.9, Neutrophils (%) (Auto) 93.1 H, Lymphocytes (%) (Auto) 4.5 L, Monocytes (%) (Auto) 1.9, Eosinophils (%) (Auto) 0.0, Basophils (%) (Auto) 0.1, Neutrophils # (Auto) 8.5, Lymphocytes # (Auto) 0.4 L, Monocytes # (Auto) 0.2, Eosinophils # (Auto) 0.0, Basophils # (Auto) 0.0 Microbiology Microbiology 07/09/19 Blood Culture, Received Pending 07/09/19 Blood Culture, Received Pending REJI MORTON MD Jul 10, 2019 06:32
[2019-07-10] MEDS: methylPREDNISolone INJ 40 MG/1 ML VIAL (J2920) IV SCH ×2 (11:20→17:42)
[2019-07-10 13:00] VITALS: BP 115/70
[2019-07-10] MEDS ORDERED: CYANOCOBALAMIN 1,000 MCG/ML VIAL (J3420) IM ONE (13:00)
[2019-07-10] MEDS: METOPROLOL TART 12.5 MG PER 1/2 TAB PO SCH ×2 (13:25→21:20)
[2019-07-10] MEDS: FOLIC ACID 1 MG TAB PO SCH (13:25)
--- NOTE | 2019-07-10 13:35 | CR ---
DATE OF CONSULTATION: 07/10/2019 DIAGNOSIS: Metastatic adenocarcinoma of lung with widespread pulmonary and bone involvement now status post palliative radiation to painful right iliac sacral mass. Patient is admitted with hypoxia requiring 5 liters nasal cannula. HISTORY OF PRESENT ILLNESS: Sonia presented initially to oncology service at the end of May. She has a 30 pack-year smoking history and had developed chronic progressive right low back pain. An ER CT showed an expansile lytic lesion in the right ileum associated with a soft tissue mass with no other abnormality on abdomen pelvis CT. She underwent CT angio of the chest, small pulmonary embolism was found, as well as diffuse parenchymal changes consistent with emphysema versus possible metastases. She was seen by orthopedic oncology in [place] as the clinical concern at the time was high for a osteo or chondrosarcoma. Biopsy however proved consistent with adenocarcinoma of lung origin. Sonia then presented to [facility] in mid to late June just prior to her scheduled outpatient followup with oncology, for hypoxemia, tachycardia, suspected pneumonia. She was treated and discharged. She then was referred to radiation oncology for palliative radiation and as of 07/05/2019 completed 3000 cGy radiation to the right iliac wing and sacral region. Just as she was to follow up in medical oncology again, she presented to the emergency room after being referred to pulmonology for management of her oxygen requirement. On admission, 07/09/2019, she was tachycardic with a blood gas showing arterial 90% saturation. She has been treated with appropriate oxygen levels but continues with significant tachypnea and tachycardia. Chest x-ray showed numerous confluent lung nodules diffusely through both lungs, similar to prior study on 06/24, normal cardiac silhouette and unremarkable mediastinum and samuel. At the bedside, Sonia appears drawn, tired, sitting in tripod position using accessory muscles to breathe slightly. I discussed palliative treatment with chemotherapy and immunotherapy versus palliative/hospice care without active treatment. Sonia quickly embraced wanting to try chemotherapy. She has two small children at home and wants to do her best to stay alive for them as long as she can. She is accompanied by her mother today, Joselin Gonzalez. I reviewed risks, benefits and side effects of carboplatin / pemetrexed / pembrolizumab, including but not limited to alopecia, myelosuppression with attendant risk of fatigue, bleeding, infection, need for transfusion and/or antibiotics, nausea, vomiting, risk of flu-like syndrome and bone pain secondary to G-CSF (with Neulasta). I reviewed autoimmune side effects briefly such as pneumonitis, dermatitis colitis. I recommended Sonia be started with chemotherapy alone without immunotherapy inpatient for day one cycle one. I explained the schedule every 3 weeks, the need for B12 prior to starting treatment, which we will order today, the need to be on folic acid daily. Sonia signed written informed consent for chemotherapy after asking a few questions. I turned the conversation again to the alternative to treatment would be palliative care, a very short life expectancy but Sonia rejects this. I cautioned she could have severe complications from chemotherapy including , given her current poor performance status and disease burden. She stated she understood but wants to try treatment. I discussed the above case with Dr. Gonzales and Dr. Reyna Rios. We will work together to coordinate this hospitalization. I strongly recommended Sonia be watched over the next 4 or 5 days getting through the weekend after her first chemotherapy. Should she develop significant side effects as her performance status currently is at best 3, possibly 4, due to the extremity of her lung cancer. Her baseline health is good with some smoking-related lung disease. IMPRESSION: Metastatic adenocarcinoma of lung with bone metastases, pulmonary metastases, status post palliative radiation to right iliac completed 07/05/2019. Now with shortness of breath, dyspnea and tachycardia, all most likely secondary to progressive pulmonary parenchymal lung cancer. Pulmonary embolism on anticoagulation. Tachycardia, likely secondary to increased pulmonary pressure due to lung cancer. PLAN/RECOMMENDATIONS: 1. B12 1 mg IM x1, I have ordered this for today. 2. Begin folic acid 1 mg p.o. daily. 3. I have spoken with our nurse food and beverage operations manager and nurses about starting carboplatin and pemetrexed inpatient tomorrow. This is given 1 day every 3 weeks. 4. Consider repeat chest CT for progressive respiratory symptoms not responding to supplemental oxygen. As of 06/19/2019, numerous irregular lung nodules were seen throughout all lobes of both lungs with stable right middle lobe collapse. No pleural effusions and resolution of prior pleural effusion with no mediastinal or left hilar adenopathy. TIME STATEMENT: A total of 35 minutes spent face to face with the patient, coordinating care with chemotherapy nurses, answering patient's and her mother's questions, obtaining written in formed consent, preparing chemotherapy orders. [facility]
[2019-07-10 14:00] VITALS: BP 127/87
[2019-07-10] MEDS ORDERED: LIDOCAINE 1% MDV 20ML VIAL As Ordered ONE (15:50)
[2019-07-10] MEDS: ENOXAPARIN 60 MG/0.6 ML SYR (J1650) SC SCH (17:39)
--- NOTE | 2019-07-10 20:19 | CR ---
DATE OF CONSULTATION: 07/10/[address] Orellana to evaluate Ms. Gonzalez for hypoxemia. HISTORY OF PRESENT ILLNESS: Ms. Gonzalez is an unfortunate 44-year-old female with the recent diagnosis of stage IV metastatic adenocarcinoma of lung primary. In May, she had significant pain and had a CT scan done, which showed an expansile lesion. This lesion was biopsied and was shown to be a adenocarcinoma with mucinous feature consistent with lung primary. She initially presented to oncology on May 31 with the bone lesion before the final diagnosis was made. In regards to her cancer, she has bone and lung involvement. Because of her pain, she was started on XRT to the right iliac wing and sacral region. I believe her most recent treatment was 2 days ago. While this evaluation was going on, Ms. Gonzalez presented to [facility] in mid June with worsening shortness of breath over the preceding 3 weeks. She had been diagnosed with pulmonary embolism and on 05/29/19 but her symptoms had progressed despite anticoagulation. Furthermore, she had decrease in appetite with some weight loss. When she was admitted, she had a post obstructive pneumonic process and she was treated with antibiotics. On the day of discharge, she was still hypoxic with exertion and she was prescribed oxygen, I believe it to be between 3 to 4 liters. Her discharge was on the 01 of July. She reports to me that she continued to have worsening shortness of breath particularly over the past weekend. She also noted some wheezing and that her legs were starting to swell up. She did not qualify for high flow oxygen when she was inpatient so she did not have that available. They contacted [facility] who stated they could not make a change without an order. They contacted Dr. Pang' office who felt that was better ordered by pulmonary. She had never seen the pulmonary department before and Dr. Pang had requested a stat consultation. When she arrived at the clinic, she had to be assisted out of the car and even at that point her saturations were in the 60s. She was brought in to the office and her saturations remained in this 60-70 percentile. She was also tachycardiac (she was tachycardic during her entire admission) and she was sent to the emergency department for further evaluation. In the emergency department, she was changed to high flow oxygen and her oxygen levels were increased. A chest x-ray was done, which showed a new area of consolidation in the right upper lobe, but also improvement in the lateral right upper lobe compared to her June admission. She was thought to have a COPD exacerbation. She was treated with steroids but also with diuresis. She feels that her wheezing has resolved from one or the other treatment as has her lower extremity edema. It is noted previously she has been tachycardia for quite some time, but she is not aware of it. She has never had palpitations. She just had an echocardiogram done. Today, she tells me that she feels somewhat better, again she is not certain if it was the diuretic or Solu-Medrol. She has not heard any wheezing. No shortness of breath at rest. She has not noted any difference in shortness of breath with ambulation. She has an occasional cough that is productive of clear sputum. There are times that she does not feel she can expectorate. No chest pain or pressure. She, at times, has difficulty sleeping because of shortness of breath. She does have a hospital bed at home and sleeps elevated. No PND, but again she is sleeping elevated. She had bilateral pedal edema which is new for her over the past weekend, but that has resolved with diuretic. She feels her back pain is doing very well and is responding to XRT. No nausea or emesis. No diarrhea. No postnasal drip. No persistent fevers, chills or drenching night sweats. She has lost weight with her illness. She felt she was holding steady while she was hospitalized with her weight 110 pounds, but she has lost weight over this past week. She has decreased energy level. ALLERGIES: No known drug allergies. MEDICATIONS ON ADMISSION: - Bactrim to the biopsy - cetirizine 10 mg by mouth daily - Colace 100 mg by mouth twice a day as needed - enoxaparin 80 mg subcutaneous daily - vitamin D2 38136 units by mouth every week - famotidine 40 mg by mouth twice a day as needed - Flonase 2 sprays nostrils daily as needed - furosemide 40 mg by mouth daily as needed for swelling - hydrocodone/acetaminophen 05-325 one by mouth three times a day as needed - ibuprofen 600 mg by mouth three times a day as needed - ipratropium/levalbuterol nebulization every 6 hours - lidocaine patch to her back as needed - Montelukast 10 mg by mouth daily - morphine sulfate 30 mg by mouth twice a day as needed PAST MEDICAL HISTORY: 1. Stage IV metastatic lung cancer involving the sacrum and right iliac wing and lung diagnosis 06/2019. a. Status post XRT to the right iliac wing and sacrum 2. Pulmonary embolism 05/2019 3. Admission for post obstructive pneumonia. 06/2019. 4. Chronic obstructive pulmonary disease (COPD) per chart, she has not had spirometry in the past. 5. Chronic respiratory failure with hypoxemia. 6. Cancer cachexia. 7. Chronic pain secondary to bone metastasis, on opiates. 8. Status post 9 teeth pulled 12/18 9. Status post cholecystectomy 2016 10. Status post dilatation and curettage 2006. 11. Tobacco usage, cessation 04/2019. FAMILY HISTORY: Ms. Gonzalez is adopted and her family history is not known. SOCIAL HISTORY: Ms. Gonzalez is a former smoker having average one pack per day for 30 years. She quit within the past 2 months. She has marijuana occasionally. No alcohol usage. No other street drug usage. She does not work. 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 She has two children (one who I believe is a step child), one of whom has been diagnosed with asthma. REVIEW OF SYSTEMS: Per history of present illness. The remainder of pertinent review of systems are negative. PHYSICAL EXAMINATION: General: Ms. Gonzalez is sitting in bed in mild respiratory distress. She is cachectic. She is able to lay back, but when she sits forward, she is often tripoding. She is using supraclavicular accessory muscles. She is able to complete short sentences, but often defers to her mother. No cough evaluation. Vital signs: Temperature 98.6, pulse 136, respiratory 28, blood pressure 115/70 with a MAP of 85, SPO2 96% on FIO2 of 5 liters. HEENT: Anicteric. Nares: High flow oxygen tubing in place. Oropharynx clear. No lesions, no drainage in the posterior pharynx, Mallampati one to two dentures. Neck: Supple, without thyromegaly or masses, trachea is midline. I was unable to assess JVP as she could not lay back easily. Lymph: Without cervical or supraclavicular lymphadenopathy. Chest: Increased AP diameter. Lungs: Symmetric excursion, generalized diminished air entry. No wheeze, rhonchi or significant crackle on tidal excursion. Prolonged expiratory phase. She is using supraclavicular accessory muscle usage. No retractions. Likely hyperresonant to percussion. Cardiac: She is tachycardiac and appears hyperdynamic. Normal S1, S2. No murmur, rub or gallop appreciated. Abdomen: Positive bowel sounds, soft, nondistended, nontender, no hepatosplenomegaly or masses appreciated. Extremities: Without clubbing, cyanosis or edema. No calf tenderness. Palpable pedal pulses bilaterally. LABORATORY DATA: CBC from this morning showed a hemoglobin of 12.5, hematocrit 37.2, platelet count 369,000, white blood cell count 9200 with a differential 93% neutrophils, 4,5% lymphocytes and 2% monocytes. Chemistries showed sodium 134, potassium 4.0, chloride 95, bicarbonate 30, anion gap 9, BUN 23, creatinine 0.3, glucose 126, calcium 9.1, total bilirubin 0.4, AST 20, ALT 40, alkaline phosphatase 127, total protein 6.9, albumin 2.7. Lactic acid to from yesterday was 1.1. Prolactin is pending. Arterial blood gas yesterday in the emergency department was 7.48/44/57 with a measured saturation of 90% and a base excess of 7. I do not know how much oxygen this was drawn on. I reviewed her chest x-ray, as well as her report that was taking yesterday.That x-ray shows normal cardiac silhouette perhaps some mild increased pulmonary vasculature. There are numerous bilateral nodules and confluent nodules. There is a new right upper lobe consolidation with the right upper lobe more lateral lesion that was present on 06/24/19, essentially resolved. I also reviewed her chest CT scan from 06/19/19, as well as report. That CT scan showed normal appearing cardiac silhouette with enlarged pulmonary vasculature per my view. There are multiple bilateral nodule and confluent nodules. There was a small region of the right middle lobe that was collapsed. No mediastinal or left hilar adenopathy. Cannot tell much about the right hilar region because of the right middle lobe partial collapse. No pulmonary emboli. ASSESSMENT: 1. Acute hypoxemic respiratory failure. I suspect that this is secondary to the significant lung involvement from tumor. She also appears to have some regions of underlying emphysema that are contributing. It is not known whether she truly has an obstructive process. There is question whether there is some pulmonary edema confounding her difficulties. 2. "Wheezing." It is difficult from her history to tell whether or not this is truly a wheeze related to an obstructive lung process versus cardiac wheezing. The symptoms started in correlation at the same time she had lower extremity edema and possibly resolved from Lasix. The differential, of course, would include an obstructive lung process. 3. Tachycardia, echocardiogram pending. 4. Stage IV adenocarcinoma of the lung with significant number of lung metastases, as well as right iliac and sacral metastasis. 5. Cancer cachexia. 6. History of pulmonary embolism in 05/2019 on anticoagulation. 7. Pain. Ms. Gonzalez appears to be responding to XRT for her bone metastasis pain. She is also on opiates. 8. History of tobacco usage, relatively recent cessation 04/2019. RECOMMENDATIONS: 1. I feel at this time it is reasonable to continue with Solu-Medrol pending further evaluation, though again I am not certain if she has an obstructive process. However, this point, she would not be able to form any type of spirometric maneuver. 2. I agree with continuing outpatient nebulized therapy. 3. Await echocardiogram report. Again I am questioning whether or not she may have some pulmonary hypertension based on how her vessels looked on CT scan and also her edema that has responded to diuretics. There are other possible cardiac abnormalities related to her underlying malignancy. 4. I have spoken with Dr. Pang and Dr. Rios. The plan is to see if she can receive inpatient chemotherapy starting tomorrow. The agents she would receive are carboplatin and pemetrexed. In speaking Dr. Hoff, we anticipate that most of her difficulties, if she had any, would not be until day three. This is a one-day chemo regimen every three weeks. 5. Agree with continuing anticoagulation. 6. We sent a procalcitonin. Agree with holding off antibiotics at this point as there is not a clear pneumonic process and I anticipate she will require antibiotics again in the future. 7. She will likely qualify for high flow oxygen at home this admission. I discussed with her family there is nothing we can do if she does improve and she no longer qualifies for that device. There are strict rules for ordering oxygen, and she will be evaluated just prior to discharge. 8. I also told Ms. Gonzalez and her mother that the pulmonary service is aware of her and I will pass that on to Dr. Escamilla, who follows me bone drier operator, in case there is a clinical change following chemotherapy, and I would be happy to follow her whenever it is felt necessary as an outpatient. 9. We will reevaluate tomorrow morning. MTDD
[2019-07-10 21:00] VITALS: BP 123/85
--- NOTE | 2019-07-10 21:02 | ECHO ---
DATE OF PROCEDURE: 07/10/2019 Date of : 1975 Age: 44 REFERRING PHYSICIAN: PATIENT LOCATION: Room 4202 REASON FOR ECHOCARDIOGRAM: Shortness of breath. 2D MEASUREMENTS: IVS: 1.0 cm LV: 2.6 cm LVPW: 1.0 cm LA: 2.0 cm Aorta: 2.7 cm IVC: 1.4 cm DOPPLER MEASUREMENTS: Peak velocity across the aortic valve: 1.1 m/s Peak velocity across the LVOT: 0.81 m/s Mitral E: 0.84, Mitral A: 1.3 with a ratio of 0.6 Maximum tricuspid valve veloicty: 3.5 m/s 2D COMMENTS: 1. Normal left ventricular size, wall thickness, and low normal global left ventricular systolic function with an estimated global left ventricular systolic ejection fraction of 55 to 60%. 2. Normal left atrium. Normal right atrium and right ventricle. 3. The atrial septum appeared to be normal without evidence of defect or shunt. 4. Normal aortic root. 5. A moderate sized pericardial effusion was noted, but no definitive manifestation of cardiac tamponade. There was slight indentation of the right atrial free wall noted in limited views. 6. Mildly calcified aortic valve with normal leaflet excursion. Mildly calcified mitral annulus with normal anterior mitral valve leaflet motion. Normal tricuspid valve. The pulmonic valve appeared to be normal. The proximal pulmonary artery branches were not well visualized. 7. The inferior vena cava was normal in size with good respiratory collapse, more than 50%. DOPPLER: No significant valvular abnormalities detected but moderate tricuspid regurgitation. The calculated pulmonary artery systolic pressure varies between 50-60 mmHg. Abnormal relaxation pattern was noted across the mitral valve leaflets as well as the mitral valve annulus consistent with features of grade 1 left ventricular diastolic dysfunction. IMPRESSION 1. Normal global left ventricular systolic function. There are some features of grade 1 left ventricular diastolic dysfunction manifested by abnormal relaxation. 2. Moderate tricuspid regurgitation with moderate pulmonary hypertension. 3. Moderate pericardial effusion, no definitive evidence of cardiac tamponade. The inferior vena cava was normal in size with good respiratory collapse. The patient was on tachycardiac during the test with a heart rate between 120 and 130 beats per minute. 4. Not mentioned above, atheromatous plaques noted in the aorta. MTDD
[2019-07-10 22:00] VITALS: BP 125/83
[2019-07-10] MEDS: LEVALBUTEROL 1.25 MG/0.5 ML CONCENTRATE NEB INH PRN (22:25)
[2019-07-11] MEDS: methylPREDNISolone INJ 40 MG/1 ML VIAL (J2920) IV SCH ×5 (00:03→23:14)
[2019-07-11] MEDS ORDERED: SODIUM CHLORIDE 0.9% INJ 10 ML SYR IV PRN (02:45)
[2019-07-11] MEDS ORDERED: SODIUM CHLORIDE 0.9% INJ 10 ML SYR IV SCH (02:45)
[2019-07-11] MEDS: LEVALBUTEROL 1.25 MG/0.5 ML CONCENTRATE NEB INH SCH ×8 (03:37→22:27)
[2019-07-11] MEDS: METOPROLOL TART 12.5 MG PER 1/2 TAB PO SCH ×3 (05:02→23:01)
[2019-07-11] MEDS: oxyCODONE 5MG TAB PO PRN ×2 (05:04→13:09)
[2019-07-11] MEDS: SODIUM CHLORIDE 0.9% INJ 10 ML SYR IV SCH ×2 (05:05→18:20)
[2019-07-11 06:00] VITALS: BP 118/82
[2019-07-11 06:24] LABS: BASO % 0.1 % (0.0-1.0); HEMATOCRIT 33.6 % (36.0-47.0); HEMOGLOBIN 11.5 g/dl (12.0-15.5); LYMPH # 0.3 10^3/uL (1.5-5.0); LYMPH % 2.8 % (24.0-44.0); MEAN CORPUSCULAR HEMOGLOBIN 32.8 pg (27.0-33.0); MEAN CORPUSCULAR HGB CONC 34.2 g/dl (32.0-36.5); MEAN CORPUSCULAR VOLUME 95.7 fl (80.0-96.0); MONO # 0.6 10^3/uL (0.0-0.8); MONO % 4.7 % (0.0-5.0); NEUTROPHILS # 10.8 10^3/uL (1.5-8.5); NEUTROPHILS % 91.6 % (36.0-66.0); PLATELET COUNT, AUTOMATED 387 10^3/uL (150-450); RED BLOOD COUNT 3.51 10^6/uL (4.00-5.40); WHITE BLOOD COUNT 11.7 10^3/uL (4.0-10.0)
[2019-07-11 06:47] LABS: BLOOD UREA NITROGEN 25 MG/DL (7-18); CALCIUM LEVEL 9.3 MG/DL (8.5-10.1); CARBON DIOXIDE LEVEL 35 MEQ/L (21-32); CHLORIDE LEVEL 92 MEQ/L (98-107); CREATININE FOR GFR 0.36 MG/DL (0.55-1.30); GLOMERULAR FILTRATION RATE > 60.0 (>58); GLUCOSE, FASTING 155 MG/DL (70-100); POTASSIUM SERUM 3.2 MEQ/L (3.5-5.1); SODIUM LEVEL 133 MEQ/L (136-145)
[2019-07-11] MEDS: FOLIC ACID 1 MG TAB PO SCH (09:51)
[2019-07-11] MEDS: MONTELUKAST 10 MG TAB PO SCH (09:51)
[2019-07-11] MEDS: FUROSEMIDE 40 MG/4 ML VIAL (J1940) IV SCH (09:51)
[2019-07-11] MEDS: CETIRIZINE (ZyrTEC) 10 MG TAB PO SCH (09:51)
[2019-07-11] MEDS: BACITRACIN OINT 30GM TOP SCH ×2 (09:52→21:08)
--- NOTE | 2019-07-11 10:00 | REP ---
CT of the chest without IV contrast: Comparisons are chest CTs of 05/29/2019 and 06/19/2019. In addition there comparison plain film portable chest studies dated 06/24/2019 and 07/09/2019. The numerous confluent irregular lung nodules seen diffusely throughout both lung hammer are unchanged. The collapse of the right middle lobe is unchanged from all prior CT studies. On the portable chest dated 06/24/2019 there was a superimposed right upper lobe infiltrate. This infiltrate is faintly visible on the CT today posterolaterally in the right upper lobe on image 43. There are no pleural effusions. There is a pericardial effusion measuring up to 20 mm in depth at the cardiac apex. This was also present previously and measured 18 mm on 06/19/2019. It was not present on the 2018. The visualized upper abdomen is unchanged. Impression: Numerous bilateral confluent irregular nodules, unchanged. Faintly visible subsegmental small right upper lobe infiltrate posterolaterally. No pleural effusions. Pericardial effusion as described. Complete collapse of the right middle lobe, unchanged. Electronically Signed by Ramón Liang MD 07/11/2019 09:50 A
[2019-07-11] MEDS: POTASSIUM CHLORIDE 10% LIQ 20 MEQ/15 ML UDC PO SCH (10:47)
--- NOTE | 2019-07-11 10:52 | IPNPDOC ---
Subjective Date Seen The patient was seen on 07/11/19. Subjective Chief Complaint/HPI Says she is very anxious. SOB is not any worse. No fever or chills, contiues to be tachycardic at rest. No chest pain or cough. Objective Physical Examination General Exam: Positive: Alert, Cooperative, Mild Distress Eye Exam: Positive: PERRLA, Conjunctiva & lids normal, EOMI; Negative: Sclera icteric ENT Exam: Positive: Atraumatic, Mucous membr. moist/pink, Pharynx Normal Neck Exam: Positive: Supple; Negative: JVD, thyromegaly Chest Exam: Positive: Rales, Rhonchi, Diminished, Other (coarse breath sounds bilaterally. ) Heart Exam: Positive: Tachycardic, Regular Rhythm, Normal S1, Normal S2; Negative: Rate Normal, Bradycardic, Irregular Rhythm, Gallops, Murmurs, Rubs Telemetry: Positive: Sinus, Tachycardia Abdomen Exam: Positive: Normal bowel sounds, Soft; Negative: Tenderness, Hepatospenomegaly Extremity Exam: Positive: Edema Skin Exam: Positive: Nl turgor and temperature; Negative: Rash, Breakdown Neuro Exam: Positive: Normal Speech Assessment /Plan Assessment This is a 44-year-old female with over 30 pack year history of smoking, advanced COPD, recent diagnosis of widely metastatic adenocarcinoma of lungs in may 2019, metastais to illiac wing on the right and sacrum s/p palliative RT, Pulmonary embolism on 05/29/19 on lovenox, Chronic hypoxic respiratory failure on oxygen since june was at the Pulmonary office this morning for a follow up appointment after discharge from hospital 1 week ago. During intake vitals she was noted to have spo2 of 60% with 5 liter oxygen which did not improve with nasal canula oxygen and needed mask oxygen so ambulance was called and she was sent to the ED. Patient complains of continuous SOB on minimal exertion and even at rest. She says that her oxygen is not the high flow one and does not go up to 5 liters. On discharge her recommendation was 2 to 3 liters during ambulation as she was able to maintain 88% to 90% oxygen saturation with that amount. She also complains of constant low back pain and right hip bone pain, dull aching in nature sometimes sharp, 8/10 in intensity , no radiation, worsens with mobilization. She also complained of increased bipedal swelling. She was admitted for acute on chronic respiratory failure with hypoxia. Widely metastatic Lung cancer adenocarcinoma of the lung, stage IV. Mucinous type with metastatic lesion to the right iliac wing and eroding into the sacrum with difficulty ambulating due to severe pain. started on RT on 06/24 and finished on 07/08/[address] Engle planned for starting inpatient chemo 07/11/19. Its going to be every 3 weeks. Acute on chronic hypoxic respiratory failure Due to advanced COPD and lung cancer possible fluid overload also on presentation Now close to euvolemia duonebs, levalbuterol prn, high flow or comfort flow oxygen . have also started IV steroids. will give lasix prn. pulmonary has been consulted. Persistent Sinus tachycardia most probably cancer related. additional things may be pulmonary hypertension, PE and pericardial effusion. started on metoprolol. Echo shows: Normal global left ventricular systolic function, features of grade 1 left ventricular diastolic dysfunction manifested by abnormal relaxation. Moderate tricuspid regurgitation with moderate pulmonary hypertension varying between 50 to 60 Moderate pericardial effusion, no definitive evidence of cardiac tamponade. The inferior vena cava was normal in size with good respiratory collapse. The patient was on tachycardiac during the test with a heart rate between 120 and 130 beats per minute, atheromatous plaques noted in the aorta. will get CT chest to look at the pericardial effusion. Pulmonary embolism. On Lovenox 1.5 mg per kg/ day secondary to adenocarcinoma of the lung and hypercoagulable state. Pain Control: discussed with pain management in last admission MSIR 30 mg by mouth twice a day and oxycodone 5 mg q 4 hours prn. Persistent leucocytosis possibly related to respiratory distress and cancer. procalcitonin normal Severe protein calorie malnutrion BMI of 18.4 this may be falsely elevated a pateint does have fluid overload. will check albumin levels. Cancer cachexia. Plan/VTE VTE Prophylaxis Ordered?: Yes VS, I&O, 24H, Fishbone Vital Signs/I&O Vital Signs Date Time Temp Pulse Resp B/P (MAP) Pulse Ox O2 Delivery O2 Flow Rate FiO2 07/11/19 06:00 97.4 102 22 118/82 (94) 92 07/11/19 06:00 5.0 07/09/19 17:20 Nasal Cannula I&O- Last 24 Hours up to 6 AM 07/11/19 05:59 Intake Total 1070 ml Output Total 1650 ml Balance -580 ml Laboratory Data 24H LABS Laboratory Tests 2 07/11/19 06:10: Immature Granulocyte % (Auto) 0.8, White Blood Count 11.7H, Red Blood Count 3.51L, Hemoglobin 11.5L, Hematocrit 33.6L, Mean Corpuscular Volume 95.7, Mean Corpuscular Hemoglobin 32.8, Mean Corpuscular Hemoglobin Concent 34.2, Red Cell Distribution Width 14.0, Platelet Count 387, Neutrophils (%) (Auto) 91.6H, Lymphocytes (%) (Auto) 2.8L, Monocytes (%) (Auto) 4.7, Eosinophils (%) (Auto) 0.0, Basophils (%) (Auto) 0.1, Neutrophils # (Auto) 10.8H, Lymphocytes # (Auto) 0.3L, Monocytes # (Auto) 0.6, Eosinophils # (Auto) 0.0, Basophils # (Auto) 0.0, Nucleated Red Blood Cells % (auto) 0.0, Anion Gap 6L, Glomerular Filtration Rate > 60.0, Blood Urea Nitrogen 25H, Creatinine 0.36L, Sodium Level 133L, Potassium Level 3.2L, Chloride Level 92L, Carbon Dioxide Level 35H, Calcium Level 9.3 CBC/BMP Laboratory Tests 07/11/19 06:10 Red Blood Count 3.51 L, Mean Corpuscular Volume 95.7, Mean Corpuscular Hemoglobin 32.8, Mean Corpuscular Hemoglobin Concent 34.2, Red Cell Distribution Width 14.0, Neutrophils (%) (Auto) 91.6 H, Lymphocytes (%) (Auto) 2.8 L, Monocytes (%) (Auto) 4.7, Eosinophils (%) (Auto) 0.0, Basophils (%) (Auto) 0.1, Neutrophils # (Auto) 10.8 H, Lymphocytes # (Auto) 0.3 L, Monocytes # (Auto) 0.6, Eosinophils # (Auto) 0.0, Basophils # (Auto) 0.0, Calcium Level 9.3 Microbiology Microbiology 07/10/19 Respiratory Virus Panel (PCR) ([facility]) - Final, Complete 07/09/19 Blood Culture - Preliminary, Resulted No growth after 24 hours . All specim... 07/09/19 Blood Culture - Preliminary, Resulted No growth after 24 hours . All specim... REJI MORTON MD Jul 11, 2019 10:52
--- NOTE | 2019-07-11 11:49 | ONC.PHACK ---
CHEMO ADMIN CHECKLIST Order Contains Pt ID: Name, Order on Chemo Order Form?: Yes Order Form Includes ALL: Correct Tx Day, Correct Date, Correct Cycle Number Pt ID on Order form Matches: Pt ID on PHA Label Med on Chemo OrderForm Matches: PHA Label, Med Used for Preparation [facility] Jul 11, 2019 11:49
[2019-07-11] MEDS ORDERED: dexameTHASONE 10 MG IV IV ONE (12:00)
[2019-07-11] MEDS ORDERED: PALONOSETRON 250 MCG IV IV ONE (12:00)
[2019-07-11] MEDS ORDERED: FOSAPREPITANT PERIPHERAL LINE 30 MIN INFUSION IV ONE ×2 (12:00)
--- NOTE | 2019-07-11 12:15 | IPN ---
DATE: 07/11/2019 NOTE: Ms. Gonzalez remains ill with widely metastatic adenocarcinoma of the lung. No clinical change this morning. She still notes dyspnea on exertion. She has occasional cough productive of clear sputum. No chest pain. She does feel some chest heaviness. Her bone pain is relatively well-controlled after XRT. She still has a decreased appetite. She is anxious about starting chemotherapy today. Yesterday she had an echocardiogram, which did show paracardial effusion as well as moderate pulmonary hypertension with no evidence of tamponade. OBJECTIVE/PHYSICAL EXAMINATION: General: Ms. Gonzalez is sitting in bed using accessory muscles. She is cachectic. She does not make much eye contact. Vital signs: Temperature 97.4 with a maximum temperature (Tmax) of 97.9, pulse 102, respiratory rate 20, blood pressure 118/82 with a mean arterial pressure (MAP) of 94. SpO2 92% on 5 liters by nasal cannula. HEENT: Anicteric. Nares: Patent bilaterally. Moist mucosa. Oropharynx clear. Neck: Trachea is midline. Lungs: Symmetric excursion, generally diminished air entry, no significant crackle wheeze or rhonchi on tidal excursion. Prolonged I:E. She is using supraclavicular as well as suprasternal accessory muscles. No retractions. Cardiovascular: Tachycardia but less hyperdynamic sounding and decreased rate this morning, no murmur, rub or gallop appreciated. Abdomen: Positive bowel sounds, soft, nontender, nondistended, no hepatosplenomegaly or masses. Extremities: Warm without clubbing or cyanosis. Palpable pedal pulses bilaterally. LABORATORY DATA: CBC from this morning showed a hemoglobin 11.8, hematocrit 33.6, platelet count. 387,000, and white blood cell count 11,700 with a differential of 92% neutrophils, 3% lymphocytes and 5% monocytes. Chemistry showed a sodium of 133, potassium 3.2, chloride 92, bicarbonate 35, anion gap 6, BUN 25, creatinine 0.4, glucose 155, calcium 9.3. I reviewed her chest CT scan as well as the report from earlier today. That CT scan showed normal-appearing cardiac silhouette and large pulmonary vascular shadows. There remained numerous pulmonary nodules with some confluent areas. There is partial collapse of the right middle lobe. There is a pericardial effusion that by measurement is perhaps 1 mm larger than it was 06/24/2019. Echocardiogram report from 06/10/2019 showed normal left ventricular (LV) size with a normal ejection fraction (EF) of 55-60%. There is a moderate size pericardial effusion but no definite manifestation of cardiac tamponade. The inferior vena cava was normal in size. There is moderate pulmonary hypertension with PASP of 58-60 mmHg. IMPRESSION: 1. Acute hypoxemic respiratory failure that is felt multifactorial, appropriately replaced on 5 liters high flow oxygen. 2. Pulmonary hypertension, moderate. 3. Pericardial effusion, no evidence of tamponade most likely malignant. 4. Stage IV adenocarcinoma of the lung with significant number of lung metastases as well as right iliac and sacral metastases, starting chemotherapy today. 5. Cancer cachexia. 6. History of pulmonary embolism 05/2019, on anticoagulation. 7. History of tobacco usage, cessation 04/2019. RECOMMENDATIONS: 1. Continue to supplement oxygen. 2. I discussed the CT and echocardiogram results with Ms. Gonzalez and her mother and questions are answered. 3. I also discussed with that no intervention is indicated at this time for the pericardial effusion. However, I did advise Dr. Hopkins of this effusion in case there is a change after she starts chemotherapy that requires intervention. 4. Continue anticoagulation for the pulmonary embolism in 05/2019. LIANNE
[2019-07-11] MEDS ORDERED: PEMETREXED DISODIUM IV ONE (13:00)
[2019-07-11] MEDS ORDERED: NS IV ONE ×2 (13:00→13:10)
[2019-07-11] MEDS ORDERED: CARBOPLATIN IV ONE (13:10)
[2019-07-11 13:30] VITALS: BP 108/74
[2019-07-11] MEDS ORDERED: DEXA4TA PO (14:17)
[2019-07-11] MEDS ORDERED: FOLI1TAB11 PO (14:17)
[2019-07-11] MEDS ORDERED: ONDA8TAB7 PO (14:17)
[2019-07-11] MEDS ORDERED: PROC10TA4 PO (14:17)
[2019-07-11] MEDS ORDERED: ONDANSETRON 4MG/2ML VIAL (J2405) IV PRN (15:00)
[2019-07-11] MEDS: MORPHINE 30 MG TAB **MSIR PO PRN (17:04)
--- NOTE | 2019-07-11 17:24 | IPN ---
DATE: 07/11/2019 DIAGNOSIS: 1. Widely metastatic poorly differentiated adenocarcinoma of lung with bone and pulmonary parenchymal metastasis. 2. Moderate pericardial effusion suspected malignant. 3. Status post right iliac mass radiation. 4. Hypoxemia, using 5 L O2 high-flow INTERVAL HISTORY: Sonia began salvage chemotherapy today with carboplatin and pemetrexed. Pembrolizumab is being held. Tonight at the bedside she he is breathing mildly rapidly but her breathing is no worse than yesterday she reports. She has off and on time. She has no difficulty with chemotherapy today. The decision was made in conjunction with her mother and herself and myself for her to remain inpatient during the first few days of chemotherapy and to administer the immunotherapy outpatient. She is at risk for fluid accumulation in the lung, increase in the pericardial effusion in the immediate 10-day period following treatment and needs close watching. Echocardiogram showed normal ejection fraction tachycardia. No evidence of tamponade physiology. Vital signs: Blood pressure 108/74, heart rate 114, respiratory 24, O2 sat 94%. Respiratory: Somewhat coarse breath sounds in the upper anterior lung hammer and the upper posterior lung hammer. No audible wheezes. Cardiac: Tachy Cardiac: Regular rhythm. Abdomen is nontender. Extremities: No edema. LABORATORY DATA: WBC 11, hemoglobin hematocrit 33, platelets 387, normal renal function, GFR greater than 60, potassium 3.2, sodium 133 procalcitonin normal albumin 2.7. IMPRESSION: 1. Widespread metastatic adenocarcinoma of lung in 44-year-old woman status post radiation to large iliac mass with confluent multi focal small pulmonary metastasis moderate pericardial effusion concerning for malignant effusion day one cycle one salvage chemotherapy with carboplatin / pemetrexed. 2. High risk for fluid overload in the immediate post chemotherapy setting including progressed pleural effusion, increased pericardial effusion, low threshold for diuresis and considering pericardial window. PLAN/RECOMMENDATIONS: 1. Neulasta will be given tomorrow. 2. Close watch in the next several days with low threshold for diuresis for new shortness of breath and restage recheck pleural effusions or worsened pericardial effusion. 3. I reviewed again today with Sonia the salvage nature of this treatment at fairly high risk for complications. She said she understood. 4. Will follow daily. MTDD
[2019-07-11] MEDS: ENOXAPARIN 60 MG/0.6 ML SYR (J1650) SC SCH (18:20)
[2019-07-11 22:00] VITALS: BP 109/75
[2019-07-12] MEDS: oxyCODONE 5MG TAB PO PRN ×2 (02:35→17:02)
[2019-07-12] MEDS: LEVALBUTEROL 1.25 MG/0.5 ML CONCENTRATE NEB INH SCH ×6 (02:53→23:32)
[2019-07-12 05:20] LABS: BASO % 0.1 % (0.0-1.0); HEMATOCRIT 33.1 % (36.0-47.0); HEMOGLOBIN 11.1 g/dl (12.0-15.5); LYMPH % 1.4 % (24.0-44.0); MEAN CORPUSCULAR HEMOGLOBIN 32.8 pg (27.0-33.0); MEAN CORPUSCULAR HGB CONC 33.5 g/dl (32.0-36.5); MEAN CORPUSCULAR VOLUME 97.9 fl (80.0-96.0); MONO # 0.3 10^3/uL (0.0-0.8); MONO % 3.5 % (0.0-5.0); NEUTROPHILS # 8.7 10^3/uL (1.5-8.5); NEUTROPHILS % 94.5 % (36.0-66.0); PLATELET COUNT, AUTOMATED 344 10^3/uL (150-450); RED BLOOD COUNT 3.38 10^6/uL (4.00-5.40); WHITE BLOOD COUNT 9.2 10^3/uL (4.0-10.0)
[2019-07-12] MEDS: methylPREDNISolone INJ 40 MG/1 ML VIAL (J2920) IV SCH ×3 (05:41→17:04)
[2019-07-12] MEDS: SODIUM CHLORIDE 0.9% INJ 10 ML SYR IV PRN (05:42)
[2019-07-12 05:45] LABS: BLOOD UREA NITROGEN 29 MG/DL (7-18); CALCIUM LEVEL 9.1 MG/DL (8.5-10.1); CARBON DIOXIDE LEVEL 34 MEQ/L (21-32); CHLORIDE LEVEL 95 MEQ/L (98-107); GLOMERULAR FILTRATION RATE > 60.0 (>58); GLUCOSE, FASTING 204 MG/DL (70-100); POTASSIUM SERUM 3.5 MEQ/L (3.5-5.1); SODIUM LEVEL 134 MEQ/L (136-145)
[2019-07-12 05:54] LABS: LYMPH # 0.1 10^3/uL (1.5-5.0)
[2019-07-12 06:00] VITALS: BP 95/69
[2019-07-12] MEDS: SODIUM CHLORIDE 0.9% INJ 10 ML SYR IV SCH ×2 (06:54→17:02)
[2019-07-12] MEDS: METOPROLOL TART 12.5 MG PER 1/2 TAB PO SCH ×4 (07:02→22:00)
[2019-07-12] MEDS: POTASSIUM CHLORIDE 10% LIQ 20 MEQ/15 ML UDC PO SCH (08:33)
[2019-07-12] MEDS: CETIRIZINE (ZyrTEC) 10 MG TAB PO SCH (08:33)
[2019-07-12] MEDS: MONTELUKAST 10 MG TAB PO SCH (08:33)
[2019-07-12] MEDS: FOLIC ACID 1 MG TAB PO SCH (08:33)
[2019-07-12] MEDS: MORPHINE 30 MG TAB **MSIR PO PRN ×2 (08:34→20:27)
[2019-07-12] MEDS: BACITRACIN OINT 30GM TOP SCH ×2 (08:35→20:26)
--- NOTE | 2019-07-12 09:15 | REP ---
MIDLINE CATHETER INSERTION WITH SITE CECILIA The procedure was performed under the direct supervision of Dr. Beltran. The risks and benefits of the procedure were explained to the patient and informed consent was obtained. The right brachial vein was localized using ultrasound guidance. The skin was prepped and draped in a sterile fashion. 1% lidocaine was used as a local anesthetic. Using ultrasound guidance the brachial vein was cannulated and a 0.018 guide wire was inserted. The needle was removed and a 5.5 Samoan dilator and peel-away sheath was inserted over the guide wire. A 5.5 Samoan dual lumen catheter was cut to length of 14 cm. The dilator was removed and the catheter was inserted over the guide wire. The peel-away sheath was removed and the catheter was flushed with heparinized saline as per Hospital protocol. The catheter was affixed to the skin and a sterile dressing was applied. The patient tolerated the procedure well and there were no immediate complications. After the appropriate amount of monitored convalescence the patient was discharged from the department. Electronically Signed by AIDE Salazar 07/10/2019 05:10 P Electronically Signed by Ramón Beltran MD 07/12/2019 09:07 A
[2019-07-12] MEDS ORDERED: PEGFILGRASTIM 6 MG/0.6ML SYR (NEULASTA) (J2505 PER 6MG) SC ONE (12:00)
[2019-07-12 14:00] VITALS: BP 106/72
[2019-07-12] MEDS: ENOXAPARIN 60 MG/0.6 ML SYR (J1650) SC SCH (17:03)
--- NOTE | 2019-07-12 18:16 | IPN ---
DATE: 07/12/2019 DIAGNOSES: 1. Metastatic poorly differentiated adenocarcinoma of lung with bone and pulmonary parenchymal metastases. 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 2. Moderate pericardial effusion, suspected malignant. 3. Status post right iliac mass radiation. 4. Hypoxemia on 5 liters oxygen high-flow INTERVAL HISTORY: Sonia began salvage chemotherapy yesterday, 07/11/2019, so today is day two. She did not sleep well overnight, but says this was not too bad. She reports no major side effects so far. Her breathing, she thinks, might be slightly better. The nurse comments that it appeared to be slightly better today. Sonia denies new pain. She does have some coughing up phlegm. No hemoptysis. VITAL SIGNS: Temperature 97.3, blood pressure 106/72, heart rate 116-119, respiratory rate 19, oxygen saturation 97% on 5 liters. LABORATORY DATA: WBC 9.2, hemoglobin 11, hematocrit 33, platelets 344, neutrophil percentage 94. IMPRESSION: 1. Metastatic lung adenocarcinoma with widespread skeletal involvement confluent bilateral lung nodules on salvage chemotherapy. ECOG Performance Status 3. 2. Hypoxemia requiring 5 liters oxygen. 3. Tolerating day one chemotherapy very well status post pegfilgrastim injection at noon. RECOMMENDATIONS: 1. I cautioned Sonia day three is often the most difficult day. That will be tomorrow. The effects of Neulasta can involve an inflammatory syndrome involving bone pain, malaise. This can be treated with Claritin and nonsteroidal anti-inflammatory drugs (NSAIDs). 2. A 10-day period following administration of chemotherapy, the "linda period" is when counts can drop most precipitously, including hemoglobin, WBC and platelets. Will follow. TIME STATEMENT: 15 minutes spent face to face with the patient, reviewing labs, answering patient questions.
--- NOTE | 2019-07-12 19:20 | IPNPDOC ---
Subjective Date Seen The patient was seen on 07/12/19. Subjective Chief Complaint/HPI No new complaints today. Remains tachycardic in 120s. maintaining oxygenation. No nausea or vomiting , no diarrhea, no fever or chills. Does have some cough but no hemoptysis. No worsening of pain. Objective Physical Examination General Exam: Positive: Alert, Cooperative, Mild Distress Eye Exam: Positive: PERRLA, Conjunctiva & lids normal, EOMI; Negative: Sclera icteric ENT Exam: Positive: Atraumatic, Mucous membr. moist/pink, Pharynx Normal Neck Exam: Positive: Supple; Negative: JVD, thyromegaly Chest Exam: Positive: Rales, Rhonchi, Diminished, Other (coarse breath sounds bilaterally. ) Heart Exam: Positive: Tachycardic, Regular Rhythm, Normal S1, Normal S2; Negative: Rate Normal, Bradycardic, Irregular Rhythm, Gallops, Murmurs, Rubs Telemetry: Positive: Sinus, Tachycardia Abdomen Exam: Positive: Normal bowel sounds, Soft; Negative: Tenderness, Hepatospenomegaly Extremity Exam: Positive: Edema Skin Exam: Positive: Nl turgor and temperature; Negative: Rash, Breakdown Neuro Exam: Positive: Normal Speech Assessment /Plan Assessment This is a 44-year-old female with over 30 pack year history of smoking, advanced COPD, recent diagnosis of widely metastatic adenocarcinoma of lungs in may 2019, metastasis to illiac wing on the right and sacrum s/p palliative RT, Pulmonary embolism on 05/29/19 on lovenox, Chronic hypoxic respiratory failure on oxygen since June was at the Pulmonary office this morning for a follow up appointment after discharge from hospital 1 week ago. During intake vitals she was noted to have spo2 of 60% with 5 liter oxygen which did not improve with nasal canula oxygen and needed mask oxygen so ambulance was called and she was sent to the ED. Patient complains of continuous SOB on minimal exertion and even at rest. She says that her oxygen is not the high flow one and does not go up to 5 liters. On discharge her recommendation was 2 to 3 liters during ambulation as she was able to maintain 88% to 90% oxygen saturation with that amount. She also complains of constant low back pain and right hip bone pain, dull aching in nature sometimes sharp, 8/10 in intensity , no radiation, worsens with mobilization. She also complained of increased bipedal swelling. She was admitted for acute on chronic respiratory failure with hypoxia. Widely metastatic Lung cancer adenocarcinoma of the lung, stage IV. Mucinous type with metastatic lesion to the right iliac wing and eroding into the sacrum with difficulty ambulating due to severe pain. s/p RT to iliac bone 06/24 - 07/08/19 Started on Salvage inpatient chemotherapy on 07/11/19. Its going to be every 3 weeks. Acute on chronic hypoxic respiratory failure Due to advanced COPD and lung cancer possible fluid overload also on presentation Now close to euvolemia duonebs, levalbuterol prn, high flow or comfort flow oxygen . have also started IV steroids. will give lasix prn. Appreciate pulmonary input. Pericardial effusion moderate in Echo and CT suspected to be malignant. CT was reviewed with Dr lemus no change in the amount since June. No tamponade in echo. Persistent Sinus tachycardia most probably cancer related. additional things may be pulmonary hypertension, PE and pericardial effusion. started on metoprolol. Echo shows: Normal global left ventricular systolic function, features of grade 1 left ventricular diastolic dysfunction manifested by abnormal relaxation. Moderate tricuspid regurgitation with moderate pulmonary hypertension varying between 50 to 60 Moderate pericardial effusion, no definitive evidence of cardiac tamponade. The inferior vena cava was normal in size with good respiratory collapse. The patient was on tachycardiac during the test with a heart rate between 120 and 1 30 beats per minute, atheromatous plaques noted in the aorta. will get CT chest to look at the pericardial effusion. Pulmonary embolism. On Lovenox 1.5 mg per kg/ day secondary to adenocarcinoma o f the lung and hypercoagulable state. Pain Control: discussed with pain management in last admission MSIR 30 mg by mouth twice a day and oxycodone 5 mg q 4 hours prn. Persistent leucocytosis possibly related to respiratory distress and cancer. procalcitonin normal Severe protein calorie malnutrion BMI of 18.4 this may be falsely elevated a pateint does have fluid overload. will check albumin levels. Cancer cachexia. Plan/VTE VTE Prophylaxis Ordered?: Yes VS, I&O, 24H, Fishbone Vital Signs/I&O Vital Signs Date Time Temp Pulse Resp B/P (MAP) Pulse Ox O2 Delivery O2 Flow Rate FiO2 07/12/19 14:29 119 106/72 07/12/19 14:00 97.3 19 97 97.0 07/09/19 17:20 Nasal Cannula I&O- Last 24 Hours up to 6 AM 07/12/19 06:00 Intake Total 1444 ml Output Total 1450 ml Balance -6 ml Laboratory Data 24H LABS Laboratory Tests 2 07/12/19 05:12: Immature Granulocyte % (Auto) 0.5, White Blood Count 9.2, Red Blood Count 3.38L, Hemoglobin 11.1L, Hematocrit 33.1L, Mean Corpuscular Volume 97.9H, Mean Corpuscular Hemoglobin 32.8, Mean Corpuscular Hemoglobin Concent 33.5, Red Cell Distribution Width 14.0, Platelet Count 344, Neutrophils (%) (Auto) 94.5H, Lymphocytes (%) (Auto) 1.4L, Monocytes (%) (Auto) 3.5, Eosinophils (%) (Auto) 0.0, Basophils (%) (Auto) 0.1, Neutrophils # (Auto) 8.7H, Lymphocytes # (Auto) 0.1L, Monocytes # (Auto) 0.3, Eosinophils # (Auto) 0.0, Basophils # (Auto) 0.0, Nucleated Red Blood Cells % (auto) 0.0, Anion Gap 5L, Glomerular Filtration Rate > 60.0, Blood Urea Nitrogen 29H, Creatinine 0.40L, Sodium Level 134L, Potassium Level 3.5, Chloride Level 95L, Carbon Dioxide Level 34H, Calcium Level 9.1 CBC/BMP Laboratory Tests 07/12/19 05:12 Red Blood Count 3.38 L, Mean Corpuscular Volume 97.9 H, Mean Corpuscular Hemoglobin 32.8, Mean Corpuscular Hemoglobin Concent 33.5, Red Cell Distribution Width 14.0, Neutrophils (%) (Auto) 94.5 H, Lymphocytes (%) (Auto) 1.4 L, Monocytes (%) (Auto) 3.5, Eosinophils (%) (Auto) 0.0, Basophils (%) (Auto) 0.1, Neutrophils # (Auto) 8.7 H, Lymphocytes # (Auto) 0.1 L, Monocytes # (Auto) 0.3, Eosinophils # (Auto) 0.0, Basophils # (Auto) 0.0, Calcium Level 9.1 Microbiology Microbiology 07/10/19 Respiratory Virus Panel (PCR) ([facility]) - Final, Complete 07/09/19 Blood Culture - Preliminary, Resulted No Growth after 72 hours. All specime... 07/09/19 Blood Culture - Preliminary, Resulted No Growth after 72 hours. All specime... REJI MORTON MD Jul 12, 2019 16:32
[2019-07-12] MEDS: traZODone 25MG PER 1/2 TABLET PO PRN (20:27)
[2019-07-12 22:00] VITALS: BP 109/73
[2019-07-13] MEDS: methylPREDNISolone INJ 40 MG/1 ML VIAL (J2920) IV SCH ×3 (00:06→18:30)
[2019-07-13] MEDS: SODIUM CHLORIDE 0.9% INJ 10 ML SYR IV PRN (00:06)
[2019-07-13 02:00] VITALS: BP 115/80
[2019-07-13] MEDS: LEVALBUTEROL 1.25 MG/0.5 ML CONCENTRATE NEB INH SCH ×5 (03:08→18:12)
[2019-07-13] MEDS: oxyCODONE 5MG TAB PO PRN ×3 (03:54→20:54)
[2019-07-13] MEDS: SODIUM CHLORIDE 0.9% INJ 10 ML SYR IV SCH ×2 (05:46→18:30)
[2019-07-13] MEDS: METOPROLOL TART 12.5 MG PER 1/2 TAB PO SCH ×2 (05:47→14:03)
[2019-07-13 06:00] VITALS: BP 115/81
[2019-07-13 06:26] LABS: HEMATOCRIT 34.8 % (36.0-47.0); HEMOGLOBIN 11.2 g/dl (12.0-15.5); MEAN CORPUSCULAR HEMOGLOBIN 32.2 pg (27.0-33.0); MEAN CORPUSCULAR HGB CONC 32.2 g/dl (32.0-36.5); PLATELET COUNT, AUTOMATED 401 10^3/uL (150-450); RED BLOOD COUNT 3.48 10^6/uL (4.00-5.40); WHITE BLOOD COUNT 24.1 10^3/uL (4.0-10.0)
[2019-07-13 06:51] LABS: BLOOD UREA NITROGEN 24 MG/DL (7-18); CALCIUM LEVEL 9.2 MG/DL (8.5-10.1); CARBON DIOXIDE LEVEL 36 MEQ/L (21-32); CHLORIDE LEVEL 99 MEQ/L (98-107); CREATININE FOR GFR 0.33 MG/DL (0.55-1.30); GLOMERULAR FILTRATION RATE > 60.0 (>58); GLUCOSE, FASTING 129 MG/DL (70-100); POTASSIUM SERUM 4.3 MEQ/L (3.5-5.1); SODIUM LEVEL 136 MEQ/L (136-145)
[2019-07-13 06:54] LABS: LYMPHOCYTES 1 % (16-44); MONOCYTES 3 % (0-5); NEUTROPHILS 96 % (28-66)
[2019-07-13 06:55] LABS: PLATELET ESTIMATE NORMAL (NORMAL)
--- NOTE | 2019-07-13 09:25 | IPNPDOC ---
Subjective Date Seen The patient was seen on 07/13/19. Subjective Chief Complaint/HPI zay had a good night . Said was able to get some sleep, no fever or chills, less tachycardia, no nausea or vomiting or diarrhea. Objective Physical Examination General Exam: Positive: Alert, Cooperative, Mild Distress Eye Exam: Positive: PERRLA, Conjunctiva & lids normal, EOMI; Negative: Sclera icteric ENT Exam: Positive: Atraumatic, Mucous membr. moist/pink, Pharynx Normal Neck Exam: Positive: Supple; Negative: JVD, thyromegaly Chest Exam: Positive: Rales, Rhonchi, Diminished, Other (coarse breath sounds bilaterally. ) Heart Exam: Positive: Tachycardic, Regular Rhythm, Normal S1, Normal S2; Negative: Rate Normal, Bradycardic, Irregular Rhythm, Gallops, Murmurs, Rubs Telemetry: Positive: Sinus, Tachycardia Abdomen Exam: Positive: Normal bowel sounds, Soft; Negative: Tenderness, Hepatospenomegaly Extremity Exam: Positive: Edema Skin Exam: Positive: Nl turgor and temperature; Negative: Rash, Breakdown Neuro Exam: Positive: Normal Speech Assessment /Plan Assessment This is a 44-year-old female with over 30 pack year history of smoking, advanced COPD, recent diagnosis of widely metastatic adenocarcinoma of lungs in may 2019, metastasis to illiac wing on the right and sacrum s/p palliative RT, Pulmonary embolism on 05/29/19 on lovenox, Chronic hypoxic respiratory failure on oxygen since June was at the Pulmonary office this morning for a follow up appointment after discharge from hospital 1 week ago. During intake vitals she was noted to have spo2 of 60% with 5 liter oxygen which did not improve with jon al canula oxygen and needed mask oxygen so ambulance was called and she was sent to the ED. Patient complains of continuous SOB on minimal exertion and even at rest. She says that her oxygen is not the high flow one and does not go up to 5 liters. On discharge her recommendation was 2 to 3 liters during ambulation as she was able to maintain 88% to 90% oxygen saturation with that amount. She also complains of constant low back pain and right hip bone pain, dull aching in nature sometimes sharp, 8/10 in intensity , no radiation, worsens with mobilization. She also complained of increased bipedal swelling. She was admitted for acute on chronic respiratory failure with hypoxia. Widely metastatic Lung cancer adenocarcinoma of the lung, stage IV. Mucinous type with metastatic lesion to the right iliac wing and eroding into the sacrum with difficulty ambulating due to severe pain. s/p RT to iliac bone 06/24 - 07/08/19 Started on Salvage inpatient chemotherapy on 07/11/19. Its going to be every 3 weeks. Leucocytosis due to Neulasta. Acute on chronic hypoxic respiratory failure Due to advanced COPD and lung cancer possible fluid overload also on presentation Now close to euvolemia duonebs, levalbuterol prn, high flow or comfort flow oxygen . have also started IV steroids. will give lasix prn. Appreciate pulmonary input. Pericardial effusion moderate in Echo and CT suspected to be malignant. CT was reviewed with Dr lemus no change in the amount since June. No tamponade in echo. Persistent Sinus tachycardia most probably cancer related. additional things may be pulmonary hypertension, PE and pericardial effusion. started on metoprolol. Echo shows: Normal global left ventricular systolic function, features of grade 1 left ventricular diastolic dysfunction manifested by abnormal relaxation. Moderate tricuspid regurgitation with moderate pulmonary hypertension varying between 50 to 60 Moderate pericardial effusion, no definitive evidence of cardiac tamponade. The inferior vena cava was normal in size with good respiratory collapse. The patient was on tachycardiac during the test with a heart rate between 120 and 130 beats per minute, atheromatous plaques noted in the aorta. will get CT chest to look at the pericardial effusion. Pulmonary embolism. On Lovenox 1.5 mg per kg/ day secondary to adenocarcinoma of the lung and hypercoagulable state. Pain Control: discussed with pain management in last admission MSIR 30 mg by mouth twice a day and oxycodone 5 mg q 4 hours prn. Persistent leucocytosis possibly related to respiratory distress and cancer. procalcitonin normal Severe protein calorie malnutrion BMI of 18.4 this may be falsely elevated a pateint does have fluid overload. will check albumin levels. Cancer cachexia. Plan/VTE VTE Prophylaxis Ordered?: Yes VS, I&O, 24H, Fishbone Vital Signs/I&O Vital Signs Date Time Temp Pulse Resp B/P (MAP) Pulse Ox O2 Delivery O2 Flow Rate FiO2 07/13/19 06:00 97.5 123 21 115/81 (92) 89 5.0 07/09/19 17:20 Nasal Cannula I&O- Last 24 Hours up to 6 AM 07/13/19 06:00 Intake Total 1020 ml Output Total 350 ml Balance 670 ml Laboratory Data 24H LABS Laboratory Tests 2 07/13/19 05:28: Immature Granulocyte % (Auto) , White Blood Count 24.1H, Red Blood Count 3.48L, Hemoglobin 11.2L, Hematocrit 34.8L, Mean Corpuscular Volume 100.0H, Mean Corpuscular Hemoglobin 32.2, Mean Corpuscular Hemoglobin Concent 32.2, Red Cell Distribution Width 14.3, Platelet Count 401, Lymphocytes # (Auto) , Nucleated Red Blood Cells % (auto) 0.0, Neutrophils 96H, Lymphocytes (Manual) 1L, Monocytes (Manual) 3, Platelet Estimate NORMAL, Basophilic Stippling 1+, Macrocytosis 1+, Anion Gap 1L, Glomerular Filtration Rate > 60.0, Blood Urea Nitrogen 24H, Creatinine 0.33L, Sodium Level 136, Potassium Level 4.3#, Chloride Level 99, Carbon Dioxide Level 36H, Calcium Level 9.2 CBC/BMP Laboratory Tests 07/13/19 05:28 Red Blood Count 3.48 L, Mean Corpuscular Volume 100.0 H, Mean Corpuscular Hemoglobin 32.2, Mean Corpuscular Hemoglobin Concent 32.2, Red Cell Distribution Width 14.3, Lymphocytes # (Auto) , Calcium Level 9.2 Microbiology Microbiology 07/10/19 Respiratory Virus Panel (PCR) ([facility]) - Final, Complete 07/09/19 Blood Culture - Preliminary, Resulted No Growth after 72 hours. All specime... 07/09/19 Blood Culture - Preliminary, Resulted No Growth after 72 hours. All specime... REJI MORTON MD Jul 13, 2019 09:25
[2019-07-13] MEDS: MONTELUKAST 10 MG TAB PO SCH (09:28)
[2019-07-13] MEDS: FOLIC ACID 1 MG TAB PO SCH (09:28)
[2019-07-13] MEDS: CETIRIZINE (ZyrTEC) 10 MG TAB PO SCH (09:28)
[2019-07-13] MEDS: BACITRACIN OINT 30GM TOP SCH (09:29)
[2019-07-13] MEDS: MORPHINE 30 MG TAB **MSIR PO PRN (09:46)
[2019-07-13] MEDS: POTASSIUM CHLORIDE 10% LIQ 20 MEQ/15 ML UDC PO SCH (11:06)
[2019-07-13 14:00] VITALS: BP 115/82
[2019-07-13] MEDS: traZODone 25MG PER 1/2 TABLET PO PRN ×2 (14:49→20:55)
[2019-07-13] MEDS: ENOXAPARIN 60 MG/0.6 ML SYR (J1650) SC SCH (18:30)
[2019-07-13 20:00] VITALS: BP_SYST 104; BP_SYST 116; BP_DIAS 67; BP_DIAS 84
[2019-07-13] MEDS: LEVALBUTEROL 1.25 MG/0.5 ML CONCENTRATE NEB INH PRN (21:00)
[2019-07-14] MEDS: BACITRACIN OINT 30GM TOP SCH ×3 (02:37→21:31)
[2019-07-14] MEDS: LEVALBUTEROL 1.25 MG/0.5 ML CONCENTRATE NEB INH SCH ×7 (04:28→23:24)
[2019-07-14] MEDS: oxyCODONE 5MG TAB PO PRN ×3 (04:45→19:44)
[2019-07-14 06:00] VITALS: BP 106/68
[2019-07-14] MEDS: METOPROLOL TART 12.5 MG PER 1/2 TAB PO SCH ×3 (06:08→21:31)
[2019-07-14] MEDS: methylPREDNISolone INJ 40 MG/1 ML VIAL (J2920) IV SCH ×2 (06:08→17:56)
[2019-07-14] MEDS: SODIUM CHLORIDE 0.9% INJ 10 ML SYR IV SCH ×2 (06:09→17:56)
[2019-07-14 06:25] LABS: HEMATOCRIT 34.3 % (36.0-47.0); HEMOGLOBIN 11.1 g/dl (12.0-15.5); MEAN CORPUSCULAR HEMOGLOBIN 32.3 pg (27.0-33.0); MEAN CORPUSCULAR HGB CONC 32.4 g/dl (32.0-36.5); MEAN CORPUSCULAR VOLUME 99.7 fl (80.0-96.0); PLATELET COUNT, AUTOMATED 342 10^3/uL (150-450); RED BLOOD COUNT 3.44 10^6/uL (4.00-5.40); WHITE BLOOD COUNT 15.5 10^3/uL (4.0-10.0)
[2019-07-14 06:51] LABS: BLOOD UREA NITROGEN 22 MG/DL (7-18); CARBON DIOXIDE LEVEL 38 MEQ/L (21-32); CHLORIDE LEVEL 97 MEQ/L (98-107); CREATININE FOR GFR 0.29 MG/DL (0.55-1.30); GLOMERULAR FILTRATION RATE > 60.0 (>58); GLUCOSE, FASTING 99 MG/DL (70-100); POTASSIUM SERUM 4.1 MEQ/L (3.5-5.1); SODIUM LEVEL 136 MEQ/L (136-145)
[2019-07-14 07:04] LABS: LYMPHOCYTES 1 % (16-44); MONOCYTES 1 % (0-5); NEUTROPHILS 98 % (28-66); PLATELET ESTIMATE NORMAL (NORMAL)
[2019-07-14] MEDS: MONTELUKAST 10 MG TAB PO SCH (09:24)
[2019-07-14] MEDS: POTASSIUM CHLORIDE 10% LIQ 20 MEQ/15 ML UDC PO SCH (09:25)
[2019-07-14] MEDS: CETIRIZINE (ZyrTEC) 10 MG TAB PO SCH (09:25)
[2019-07-14] MEDS: FOLIC ACID 1 MG TAB PO SCH (09:25)
--- NOTE | 2019-07-14 12:12 | REP ---
REASON FOR EXAM: Lung cancer. COMPARISON: Multiple, the latest 07/11/2019. The lack of intravenous contrast significantly decreases the sensitivity of the exam. There is a moderate pericardial effusion. There are no pleural effusions. I cannot accurately assess for hilar adenopathy. There is bilateral hilar fullness right greater than left. I see no gross mediastinal adenopathy. The imaged upper abdomen is unchanged. The imaged osseous structures are unchanged. Evaluation of the lung hammer show heavy and diffuse asymmetric and patchy opacities scattered throughout both lung hammer and in a fashion essentially unchanged from the prior exam. Persistent lingular and particularly right middle lobe opacities in a band-like fashion persists. There has been on gross change in the appearance of the lung hammer. IMPRESSION: 1. There is a pericardial effusion which does not appear to be significantly changed compared to the CT examination of the chest 07/11/2019. 2. Wide-spread diffuse abnormal lung field opacities, which do not appear to be significantly changed compared to 07/11/2019. Neoplasm with or without pneumonia, with or without atelectasis. Electronically Signed by Cristino Del Rosario DO 07/14/2019 12:48 P
--- NOTE | 2019-07-14 12:15 | REP ---
REASON FOR EXAM: Dyspnea. Assess for pleural effusion. All priors were reviewed, the latest of which is dated 07/09/2019. There is cardiomegaly, however, diffuse interstitial and air-space opacities silhouette out the heart borders. I cannot assess for a pericardial effusion on this plain film exam due to that aforementioned fact. There is no jolynn CP angle blunting. There is a band-like opacity in the lingula. A larger band-like opacity is seen in the right middle lobe. These findings suggest a change from the prior exam, however, the prior exam was a portable exam and there are no prior lateral views for comparison. There is no significant change in the appearance of the osseous structures. IMPRESSION: Markedly abnormal lung hammer with findings and limitations as described above. Pneumonia/atelectasis/metastatic disease/edema. It all needs to be correlated clinically. Electronically Signed by Cristino Del Rosario DO 07/14/2019 12:49 P
[2019-07-14] MEDS: D5W/0.9% SODIUM CHLORIDE 1,000 ML IV SCH (12:32)
--- NOTE | 2019-07-14 12:43 | IPN ---
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 INTERVAL HISTORY: Sonia is reclining in bed. Continues on 5-liter oxygen. Her respiratory rate appears slower today, less use of accessory muscles; heart rate in 110s-120s. She denies pain or subjective sense of increased dyspnea. VITAL SIGNS: Temperature 98, pulse 128, blood pressure 106/69 within the patient's standard range, oxygen (O2) flow rate 5-liter. Respiratory: Almost tubular wheezing sounds throughout the anterior bilateral lung hammer with the patient unwilling to sit forward for posterior lung examination. Cardiac: S1, S2, tachycardiac, regular rhythm. No gallop. LABORATORIES: WBC 15, hemoglobin 11, hematocrit 34, MCV 99, platelets 342, neutrophils 98%. Sodium 136, potassium 4.1, bicarbonate 38, creatinine 22, GFR greater than 60, calcium 9. No new imaging since 07/11/[address] IMPRESSION: Widespread metastatic adenocarcinoma of lung, on salvage chemotherapy, admitted with respiratory distress, hypoxemia, on 5-liter nasal cannula. Pericardial effusion, new since 06/24/2019 but stable since 07/09/2019, measuring approximately 20 mm at the apex. Day 4 chemotherapy with possible worse decreased air movement on lung examination versus decreased effort. Vital signs otherwise stable but abnormal. High risk for progression of pericardial effusion and tamponade. PLAN: 1. I have spoken with Dr. Hopkins of cardiothoracic surgery. I have ordered a at once (STAT) chest x-ray. Dr. Hopkins will shortly be here to look at the chest x-ray. 2. I have also been in contact with Dr. Rios to let her know current status. Her plan, as we discussed yesterday, was to repeat chest CT today. Depending on findings on chest x-ray, this may need to be done urgently. Will continue to follow. [facility]
[2019-07-14 14:00] VITALS: BP 106/69
--- NOTE | 2019-07-14 14:17 | CR ---
DATE OF CONSULTATION: 07/14/2019 The patient is seen at the request of Dr. Pang for increasing shortness of breath and a known pericardial effusion. The patient is a 44-year-old white female whose story starts this past May when she complained of right hip pain and she was found to have a soft tissue mass. This was at first thought to be a possible osteosarcoma; however, after biopsy it was metastatic lung cancer. She had a known pulmonary embolism on CT angiogram, also in late May. She was found to have diffuse metastatic disease of both lungs consistent with most likely lymphangitic spread. CT scan at that time showed diffuse infiltrates without pericardial effusion. CT scan done on June 10 showed a new pericardial effusion, which was quite minimal, and her echocardiogram did not show any compression. Her last CT angio of her chest did show a pulmonary embolism and showed a stable pericardial effusion, which however did have one loculation on the left side, which was larger than the prior CT scan. On 07/11, she underwent yet another CT scan and did not show a change in her effusion. Her lung parenchyma showed more extensive disease with what probably represents lymphangitic spread. She did have some fluid in the right fissure. The subxyphoid portion of the pericardial effusion measures 8 mm and with today's CT it is unchanged. Her CT scan again done today compared to her CT three days ago still shows the severe parenchymal disease and qualitatively it looks a little bit worse. She started to become short of breath about a month ago. She has not had a cough, nor has she had sputum production. She complains of a slight tickle in her throat however. There is no chest pain, no chest discomfort. She has not been able to lie flat the last number of weeks and now has a hospital bed at home, which is inclined at 45 degrees. She denies leg swelling. There has been no true dysphagia, but she has a markedly decreased appetite. Her weight has decreased from 56 kg in March 2019 to now 43 kg a few days ago. PAST MEDICAL HISTORY: Past medical illnesses - none. 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 Denies hypertension, thyroid disease or diabetes. PAST SURGICAL HISTORY: Cholecystectomy in 2019. Dilatation and curettage in 2006. She has had all of her teeth pulled. MEDICATIONS AT HOME: Include: - Lovenox 80 mg daily subcu - Colace 100 mg twice a day - dexamethasone 4 mg as directed before chemotherapy - amantadine 40 mg twice a day - fluconazole two sprays as needed - folic acid 1 mg daily - Lasix 40 mg daily - [place] 5/325 as needed for pain for her hip - ibuprofen 600 mg as needed for pain three times a day - cetirizine 10 mg daily - ipratropium and levalbuterol nebulizers every 6 hours EMPLOYMENT HISTORY: Works in the [employer] business. 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 EXPOSURES: No birds, cats, or dogs at home. No exposure to tuberculosis. HABITS: Smoked about a half a pack of Lares's per day. She has only stopped smoking in the past three months. She does smoke marijuana. Drinks socially. FAMILY HISTORY: She is adopted and there is no known information on her biological parents. REVIEW OF SYSTEMS: CONSTITUTIONAL: Denies fevers, chills or sweats. She has had weight loss as noted above. EYES: Wears glasses. Without diplopia. Without amaurosis fugax. Without prior jaundice. NOSE: Has had a recent nose bleed this morning. MOUTH: Is edentulous. RESPIRATORY: See history of present illness. CARDIAC: Denies myocardial infarctions. Is known to have a resting tachycardia. Orthopnea as noted in the history of present illness. GASTROINTESTINAL (GI): Denies nausea or vomiting, diarrhea or constipation. She denies melena, hematochezia or hematemesis. GENITOURINARY (): Without hematuria or dysuria, or history of renal stones. NEUROLOGIC: Without paresthesias, paralyses or prior seizures. HEMATOLOGIC: Without prolonged bleeding times. ENDOCRINE: With diabetes or thyroid disease. PSYCHIATRIC: Without pathological anxieties, depressions or psychoses. PHYSICAL EXAMINATION: GENERAL: A chronically ill white female who is quite frail and has difficulty completing sentences. VITAL SIGNS: Temperature is 98.0 with a pulse of 130, respiratory rate of 18-21 with use of neck accessory muscles. She is 89% saturated on 5 liters nasal cannula, and blood pressure is 106/68. EYES: Pupils equal, round and reactive to light. Extraocular motors intact. Sclera nonicteric. NOSE: Without deformity. MOUTH: Edentulous with mucous membranes that are pink and moist. Lips and commissures without lesions There is no thrush. NECK: Supple. There is some jugular venous distention (JVD), no subcutaneous emphysema. Trachea is midline. There is no thyromegaly or lymphadenopathy. LUNGS: Show marked inspiratory and expiratory wheezing. There are equal breath sounds on either side, but they are equally decreased. Percussion note is full to the diaphragm. CARDIAC EXAM: Shows tachycardia. Cardiac sounds are well heard. There are no murmurs, clicks, gallops or rubs. S1 and S2 are normal. I can feel her point of maximal impulse (PMI) in the midclavicular line and at the fifth intercostal space in the inframammary fold. ABDOMEN: Soft, nontender. Bowel sounds are positive. There is no hepatomegaly. No costovertebral angle (CVA) tenderness. She has some mild tenderness in the right upper quadrant however to deep palpation. There are no aortic or renal bruits. EXTREMITIES: Show no pretibial edema. No calf tenderness. No differential swelling of the upper extremities. SKIN: Warm, dry and perfused without cyanosis or mottling including that of the nail beds and the knees. She looks to have a little bit of clubbing. NEURO: Shows II through XII intact, along with gross motor and gross sensation intact. Gait is not tested. PSYCHIATRIC: Shows her to be awake and alert, oriented times three with appropriate mood, affect and appropriate anxiety from shortness of breath. Her most recent laboratories show a white count of 15.5 down from 24.1. She is on Neulasta. Hemoglobin and hematocrit are 11.1 and 34.3, with a platelet count of 342. Differential shows 98% neutrophils, 1% lymphocytes, 1% monocytes. There are no immature forms. No toxic granulations. Her electrolytes are normal except for an elevated total CO2 of 38. BUN and creatinine are 22 and 0.29 respectively with a glucose of 99 and a calcium of 9.0. Her albumin is 2.7. Her calculated corrected calcium is 10.0, just below the upper limit of normal in this institution, which is 10.1. Her pathology shows adenocarcinoma. Biopsy was taken from the ileal mass. Markers are negative for ROS1 and EGFR. She does show a 40% expression of PD-L1. Her chest x-ray today compared to a chest x-ray two days ago is essentially unchanged. It shows diffuse numerous nodules with diffuse infiltrative processes throughout both lungs. CT scans are discussed above. It looks as though she has diffuse lymphangitic spread. There are numerous ground glass appearances consistent with lymphangitic spread. I seen no dependent edema. IMPRESSION: 1. Diffuse adenocarcinoma, PD-L1 positive with 40% expression. 2. Hypoxia. 3. Respiratory failure. 4. Pericardial effusion, so far noncompressive. 5. Continuing pemetrexed and carboplatinum chemotherapy. 6. History of recent tobacco use. 7. Remote history of IV heroin use. 8. Cachexia. PLAN AND DISCUSSION: She has no pleural effusion to explain her increasing shortness of breath. The pericardial effusion is essentially unchanged, maybe marginally larger. I will obtain a stat echocardiogram today to see if she does have any compressive signs. It certainly does not take a lot of fluid acutely to compress the heart and put her into tamponade. I do note that she has a 40% expression of PD-L1. It maybe prudent to start her on Keytruda as soon as possible. It may rescue her in the next week. She has such diffuse disease, and she is so young, that immunotherapy with Keytruda would be advisable. Once I see the echo, which is being done stat, I will make a decision as to whether to drain her. I cannot drain her percutaneously as the pericardial effusion is small and my target would be small, there would be to much of a risk of puncturing the heart. However, doing a pericardial window is not without considerable risk, not from the operation itself, but from the intubation. She may not be extubatable. I do note the diffuse wheezing and note that she is on Xopenex as a bronchodilator.
--- NOTE | 2019-07-14 14:29 | ECHO ---
DATE OF SERVICE: 07/14/2019 REFERRING PROVIDER: Dr. Salvador Hopkins/Dr. Reyna Rios PATIENT LOCATION: Room 4202 REASON FOR THE ECHOCARDIOGRAM: Pericardial effusion. 2D MEASUREMENTS: IVS: 1.0 cm LV: 2.9 cm LVPW: 0.8 cm LA: 1.8 cm Aorta: 2.5 cm RV: 2.6 cm IVC: 1.9 cm DOPPLER MEASUREMENTS: Peak velocity across the aortic valve: 1.1 m/s Peak velocity across the LVOT: 0.91 m/s Mitral E: 0.66 Mitral A: 0.96 with a ratio of 0.7 Maximum tricuspid valve velocity: 3.0 m/s 2D COMMENTS: 1. Normal left ventricular size, wall thickness and normal global left ventricular systolic function. Left ventricular systolic ejection fraction is estimated at 60-65%. 2. Normal left atrium. Normal right atrium and right ventricle noted in limited views. No collapse noted on the right ventricle. 3. The atrial septum appeared to be normal without evidence of defect or shunt. 4. Normal aortic root. 5. A moderate sized pericardial effusion was noted without any definitive manifestation of a cardiac tamponade. It measures 1.4 cm at the apex and anteriorly. The right atrial free wall was not well visualized. 6. Normal aortic vavle. Minimally calcified mitral annulus with normal anterior mitral valve leaflet motion. Normal tricuspid valve. The pulmonic valve also appeared to be normal. The proximal pulmonary artery branches were not well visualized. 7. The inferior vena cava measured up to 1.9 cm, but with very good collapse, more than 50%. DOPPLER: There was mild tricuspid regurgitation. The calculated pulmonary systolic pressure varies between 40-50 mmHg. Abnormal relaxation pattern was noted across the mitral valve leaflets as well as the mitral valve annulus consistent with features of grade 1 left ventricular diastolic dysfunction. There is respiratory variation at the level of the tricuspid valve inflow, but nonsignificant at the level of the mitral valve inflow. IMPRESSION: 1. Normal global left ventricular systolic function. There were some features of grade 1 left ventricular diastolic dysfunction manifested by abnormal relaxation. 2. Mild tricuspid regurgitation with probably moderate pulmonary hypertension. 3. Moderate pericardial effusion, no evidence of cardiac tamponade, but the pericardial effusion seems to be slightly more. I recommend to repeat the echocardiogram in 2-3 days or it may be done sooner if necessary. The case was discussed with the ordering physicians. BAILEED
[2019-07-14] MEDS: ENOXAPARIN 60 MG/0.6 ML SYR (J1650) SC SCH (17:55)
--- NOTE | 2019-07-14 21:28 | IPNPDOC ---
Subjective Date Seen The patient was seen on 07/14/19. Subjective Chief Complaint/HPI Looking worse today. Worsened breathing today, more use of accessory muscles with conversational dyspnea. CXR and CT chest and echo repeated. No tamponade, no pleural effusion, there is increased prominance of the fluid in the fissure. remains persistently tachycardic requiring 5 liters of oxygen. No vomiting or diarrhea, no fever or chills. Objective Physical Examination General Exam: Positive: Alert, Cooperative, Mild Distress Eye Exam: Positive: PERRLA, Conjunctiva & lids normal, EOMI; Negative: Sclera icteric ENT Exam: Positive: Atraumatic, Mucous membr. moist/pink, Pharynx Normal Neck Exam: Positive: Supple; Negative: JVD, thyromegaly Chest Exam: Positive: Rales, Rhonchi, Other (coarse breath sounds bilaterally. ) Heart Exam: Positive: Tachycardic, Regular Rhythm, Normal S1, Normal S2; Negative: Rate Normal, Bradycardic, Irregular Rhythm, Gallops, Murmurs, Rubs Telemetry: Positive: Sinus, Tachycardia Abdomen Exam: Positive: Normal bowel sounds, Soft; Negative: Tenderness, Hepatospenomegaly Extremity Exam: Positive: Edema Skin Exam: Positive: Nl turgor and temperature; Negative: Rash, Breakdown Neuro Exam: Positive: Normal Speech Assessment /Plan Assessment This is a 44-year-old female with over 30 pack year history of smoking, advanced COPD, recent diagnosis of widely metastatic adenocarcinoma of lungs in may 2019, metastasis to illiac wing on the right and sacrum s/p palliative RT, Pulmonary embolism on 05/29/19 on lovenox, Chronic hypoxic respiratory failure on oxygen since June was at the Pulmonary office this morning for a follow up appointment after discharge from hospital 1 week ago. During intake vitals she was noted to have spo2 of 60% with 5 liter oxygen which did not improve with n sofy canula oxygen and needed mask oxygen so ambulance was called and she was sent to the ED. Patient complains of continuous SOB on minimal exertion and even at rest. She says that her oxygen is not the high flow one and does not go up to 5 liters. On discharge her recommendation was 2 to 3 liters during ambulation as she was able to maintain 88% to 90% oxygen saturation with that amount. She also complains of constant low back pain and right hip bone pain, dull aching in nature sometimes sharp, 8/10 in intensity , no radiation, worsens with mobilization. She also complained of increased bipedal swelling. She was admitted for acute on chronic respiratory failure with hypoxia. Widely metastatic Lung cancer adenocarcinoma of the lung, stage IV. Mucinous type with metastatic lesion to the right iliac wing and eroding into the sacrum with difficulty ambulating due to severe pain. s/p RT to iliac bone 06/24 - 07/08/19 recieved first cycle of Salvage inpatient chemotherapy on 07/11/19. Its going to be every 3 weeks. Leucocytosis due to Neulasta. Acute on chronic hypoxic respiratory failure Due to advanced COPD and lung cancer possible fluid overload also on presentation Now euvolemic duonebs, levalbuterol prn, high flow or comfort flow oxygen . have also started IV steroids. will give lasix prn. Appreciate pulmonary input. Pericardial effusion moderate in Echo and CT suspected to be malignant. CT was reviewed with Dr lemus no change in the amount since June. No tamponade in echo. Persistent Sinus tachycardia most probably cancer related. additional things may be pulmonary hypertension, PE and pericardial effusion. started on metoprolol. Echo shows: Normal global left ventricular systolic function, features of grade 1 left ventricular diastolic dysfunction manifested by abnormal relaxation. Moderate tricuspid regurgitation with moderate pulmonary hypertension varying between 50 to 60 Moderate pericardial effusion, no definitive evidence of cardiac tamponade. The inferior vena cava was normal in size with good respiratory collapse. The patient was on tachycardiac during the test with a heart rate between 120 and 130 beats per minute, atheromatous plaques noted in the aorta. will get CT chest to look at the pericardial effusion. Pulmonary embolism. On Lovenox 1.5 mg per kg/ day secondary to adenocarcinoma of the lung and hypercoagulable state. Pain Control: discussed with pain management in last admission MSIR 30 mg by mouth twice a day and oxycodone 5 mg q 4 hours prn. Persistent leucocytosis possibly related to respiratory distress and cancer. procalcitonin normal Severe protein calorie malnutrion BMI of 18.4 this may be falsely elevated a pateint does have fluid overload. will check albumin levels. Cancer cachexia. Full code Plan/VTE VTE Prophylaxis Ordered?: Yes VS, I&O, 24H, Fishbone Vital Signs/I&O Vital Signs Date Time Temp Pulse Resp B/P (MAP) Pulse Ox O2 Delivery O2 Flow Rate FiO2 07/14/19 19:44 19 88 5.0 07/14/19 14:00 97.9 135 106/69 (81) 07/09/19 17:20 Nasal Cannula I&O- Last 24 Hours up to 6 AM 07/14/19 06:00 Intake Total 840 ml Output Total 240 ml Balance 600 ml Laboratory Data 24H LABS Laboratory Tests 2 07/14/19 06:04: Immature Granulocyte % (Auto) , Nucleated Red Blood Cells % (auto) 0.0, Neutrophils 98H, Lymphocytes (Manual) 1L, Monocytes (Manual) 1, Platelet Estimate NORMAL, Anion Gap 1L, Glomerular Filtration Rate > 60.0, Blood Urea Nitrogen 22H, Creatinine 0.29L, Sodium Level 136, Potassium Level 4.1, Chloride Level 97L, Carbon Dioxide Level 38H, Calcium Level 9.0 CBC/BMP Laboratory Tests 07/14/19 06:04 Red Blood Count 3.44 L, Mean Corpuscular Volume 99.7 H, Mean Corpuscular Hemoglobin 32.3, Mean Corpuscular Hemoglobin Concent 32.4, Red Cell Distribution Width 14.1, Calcium Level 9.0 Microbiology Microbiology 07/10/19 Respiratory Virus Panel (PCR) ([facility]) - Final, Complete 07/09/19 Blood Culture - Final, Complete NO GROWTH AFTER 5 DAYS 07/09/19 Blood Culture - Final, Complete NO GROWTH AFTER 5 DAYS REJI MORTON MD Jul 14, 2019 21:28
[2019-07-14 22:00] VITALS: BP 110/75
[2019-07-14] MEDS ORDERED: ALPRAZolam 0.25 MG TAB PO ONE (23:45)
[2019-07-15] MEDS: LEVALBUTEROL 1.25 MG/0.5 ML CONCENTRATE NEB INH SCH ×5 (02:40→20:00)
[2019-07-15] MEDS: METOPROLOL TART 12.5 MG PER 1/2 TAB PO SCH ×3 (05:39→21:27)
[2019-07-15] MEDS: oxyCODONE 5MG TAB PO PRN ×2 (05:42→18:09)
[2019-07-15] MEDS: methylPREDNISolone INJ 40 MG/1 ML VIAL (J2920) IV SCH ×2 (05:42→18:07)
[2019-07-15] MEDS: SODIUM CHLORIDE 0.9% INJ 10 ML SYR IV SCH ×2 (05:43→18:08)
[2019-07-15 06:00] VITALS: BP 111/67
[2019-07-15 06:35] LABS: HEMATOCRIT 33.8 % (36.0-47.0); HEMOGLOBIN 11.3 g/dl (12.0-15.5); MEAN CORPUSCULAR HEMOGLOBIN 33.3 pg (27.0-33.0); MEAN CORPUSCULAR HGB CONC 33.4 g/dl (32.0-36.5); MEAN CORPUSCULAR VOLUME 99.7 fl (80.0-96.0); PLATELET COUNT, AUTOMATED 306 10^3/uL (150-450); RED BLOOD COUNT 3.39 10^6/uL (4.00-5.40); WHITE BLOOD COUNT 9.6 10^3/uL (4.0-10.0)
[2019-07-15 07:00] LABS: BLOOD UREA NITROGEN 18 MG/DL (7-18); CALCIUM LEVEL 8.6 MG/DL (8.5-10.1); CARBON DIOXIDE LEVEL 34 MEQ/L (21-32); CHLORIDE LEVEL 97 MEQ/L (98-107); CREATININE FOR GFR 0.19 MG/DL (0.55-1.30); GLOMERULAR FILTRATION RATE > 60.0 (>58); GLUCOSE, FASTING 107 MG/DL (70-100); POTASSIUM SERUM 3.5 MEQ/L (3.5-5.1); SODIUM LEVEL 135 MEQ/L (136-145)
[2019-07-15 07:09] LABS: LYMPHOCYTES 1 % (16-44); MONOCYTES 4 % (0-5); NEUTROPHILS 95 % (28-66)
[2019-07-15 07:10] LABS: PLATELET ESTIMATE NORMAL (NORMAL)
--- NOTE | 2019-07-15 07:54 | IPN ---
ONCOLOGY INPATIENT FOLLOWUP: DATE OF SERVICE: 07/13/2019 DIAGNOSES: 1. Metastatic poorly differentiated adenocarcinoma of lung with bone and pulmonary parenchymal metastases. No ups driver mutation status established. Stable now on first-line treatment with pembrolizumab/carboplatin begun 07/11/2019 with pegfilgrastim support. 2. Moderate pericardial effusion suspected malignant. 3. Right iliac mass status post palliative radiation. 4. Hypoxemia on 5 liters high-flow oxygen. INTERVAL HISTORY: Sonia had a relatively quiet night but is again tachycardia today in the 120s. She asked to be left alone as she has had many visitors. She was willing to let me listen to her lung exam, however. She denies hemoptysis and overall says there has been no major change and thinks her breathing might be slightly better. Vital signs: Temperature 97.5, blood pressure 115/81, heart rate 123, respiratory 21, O2 sat 89% recorded, but 93% at bedside. Respiratory: Coarse breath sounds, inspiratory and expiratory bilaterally upper and lower lung hammer and anteriorly and posteriorly. Cardiac: S1-S2, tachy, regular rhythm. Remainder of exam deferred. LABORATORY DATA: WBC 24, hemoglobin 11.2, hematocrit 35, platelets 401, neutrophil percentage 96, monocytes 1. Renal function normal sodium, potassium, chloride normal, calcium 9.2. IMPRESSION: Very advanced metastatic non-small cell lung carcinoma adenocarcinoma ups driver mutation unknown status post left iliac mass radiation and now on salvage doublet chemotherapy with pemetrexed and carboplatin day three cycle one. Tachycardiac, hypoxic, but stable respiratory status satting in the low 90s on 5 liters. Suspected malignant pericardial effusion, moderate. PLAN: 1. Continue current management. 2. For deteriorating cardiorespiratory signs would rapidly evaluated with CT and/or echocardiogram to ensure there is no progression of malignant pericardial effusion or pleural effusion either which could be drained. 3. Anticipate leukocytosis and progressive followed by progressive cytopenias such as thrombocytopenia, possibly anemia over the next 7-10 days during chemotherapy linda. Will follow. MTDD
[2019-07-15] MEDS: D5W/0.9% SODIUM CHLORIDE 1,000 ML IV SCH (09:42)
--- NOTE | 2019-07-15 09:49 | REP ---
Chest x-ray: Two views. History: Hypoxia. History of metastatic lung carcinoma. Comparison study: July 14, 2019. Findings: Extensive interstitial and nodular lung disease is seen bilaterally. This is unchanged. Cardiomediastinal silhouette is unremarkable. EKG monitoring electrodes are seen. There are clips right upper quadrant of the abdomen. Impression: Extensive interstitial and nodular pulmonary parenchymal disease persists. No new infiltrate. Electronically Signed by Anthony Hollingsworth MD 07/15/2019 01:47 P
[2019-07-15] MEDS: SYMBICORT 80/4.5MCG INHALER 6GM INH SCH ×2 (10:15→20:03)
[2019-07-15] MEDS: FOLIC ACID 1 MG TAB PO SCH (10:59)
[2019-07-15] MEDS: CETIRIZINE (ZyrTEC) 10 MG TAB PO SCH (10:59)
[2019-07-15] MEDS: MONTELUKAST 10 MG TAB PO SCH (10:59)
[2019-07-15] MEDS: BACITRACIN OINT 30GM TOP SCH ×2 (11:00→21:00)
[2019-07-15] MEDS: POTASSIUM CHLORIDE 10% LIQ 20 MEQ/15 ML UDC PO SCH (11:00)
[2019-07-15 14:00] VITALS: BP 109/72
--- NOTE | 2019-07-15 14:57 | IPNPDOC ---
Subjective Date Seen The patient was seen on 07/15/19. Subjective Chief Complaint/HPI Continues to be very sick, tachycardic, no fever , no vomiting or diarrhea. Very anxious. CXR today no new changes. Objective Physical Examination General Exam: Positive: Alert, Cooperative, Mild Distress Eye Exam: Positive: PERRLA, Conjunctiva & lids normal, EOMI; Negative: Sclera icteric ENT Exam: Positive: Atraumatic, Mucous membr. moist/pink, Pharynx Normal Neck Exam: Positive: Supple; Negative: JVD, thyromegaly Chest Exam: Positive: Rales, Rhonchi, Other (coarse breath sounds bilaterally. ) Heart Exam: Positive: Tachycardic, Regular Rhythm, Normal S1, Normal S2; Negative: Rate Normal, Bradycardic, Irregular Rhythm, Gallops, Murmurs, Rubs Telemetry: Positive: Sinus, Tachycardia Abdomen Exam: Positive: Normal bowel sounds, Soft; Negative: Tenderness, Hepatospenomegaly Extremity Exam: Positive: Edema Skin Exam: Positive: Nl turgor and temperature; Negative: Rash, Breakdown Neuro Exam: Positive: Normal Speech Assessment /Plan Assessment This is a 44-year-old female with over 30 pack year history of smoking, advanced COPD, recent diagnosis of widely metastatic adenocarcinoma of lungs in may 2019, metastasis to illiac wing on the right and sacrum s/p palliative RT, Pulmonary embolism on 05/29/19 on lovenox, Chronic hypoxic respiratory failure on oxygen since June was at the Pulmonary office this morning for a follow up appointment after discharge from hospital 1 week ago. During intake vitals she was noted to have spo2 of 60% with 5 liter oxygen which did not improve with nasal canula oxygen and needed mask oxygen so ambulance was called and she was sent to the ED. Patient complains of continuous SOB on minimal exertion and even at rest. She says that her oxygen is not the high flow one and does not go up to 5 liters. On discharge her recommendation was 2 to 3 liters during ambulation as she was able to maintain 88% to 90% oxygen saturation with that amount. She also complains of constant low back pain and right hip bone pain, dull aching in nature sometimes sharp, 8/10 in intensity , no radiation, worsens with mobilization. She also complained of increased bipedal swelling. She was admitt ed for acute on chronic respiratory failure with hypoxia. Widely metastatic Lung cancer adenocarcinoma of the lung, stage IV. Mucinous type with metastatic lesion to the right iliac wing and eroding into the sacrum with difficulty ambulating due to severe pain. s/p RT to iliac bone 06/24 - 07/08/19 received first cycle of Salvage inpatient chemotherapy on 07/11/19. Its going to be every 3 weeks. Leucocytosis due to Neulasta. Acute on chronic hypoxic respiratory failure Due to advanced COPD and lung cancer possible fluid overload also on presentation Now euvolemic duonebs, levalbuterol prn, high flow or comfort flow oxygen . have also started IV steroids. will give lasix prn. Appreciate pulmonary input. Pericardial effusion moderate in Echo and CT suspected to be malignant. CT was reviewed with Dr lemus no change in the amount since June. No tamponade in echo. Persistent Sinus tachycardia most probably cancer related. additional things may be pulmonary hypertension, PE and pericardial effusion. started on metoprolol. Echo shows: Normal global left ventricular systolic function, features of grade 1 left ventricular diastolic dysfunction manifested by abnormal relaxation. Moderate tricuspid regurgitation with moderate pulmonary hypertension varying between 50 to 60 Moderate pericardial effusion, no definitive evidence of cardiac tamponade. The inferior vena cava was normal in size with good respiratory collapse. The patient was on tachycardiac during the test with a heart rate between 120 and 130 beats per minute, atheromatous plaques noted in the aorta. will get CT chest to look at the pericardial effusion. Pulmonary embolism. On Lovenox 1.5 mg per kg/ day secondary to adenocarcinoma of the lung and hypercoagulable state. Pain Control: discussed with pain management in last admission MSIR 30 mg by mouth twice a day and oxycodone 5 mg q 4 hours prn. Persistent leucocytosis possibly related to respiratory distress and cancer. procalcitonin normal Severe protein calorie malnutrion BMI of 18.4 this may be falsely elevated a pateint does have fluid overload. will check albumin levels. Cancer cachexia. Anxiety xanax prn. did not like the trazodone. Plan/VTE VTE Prophylaxis Ordered?: Yes VS, I&O, 24H, Fishbone Vital Signs/I&O Vital Signs Date Time Temp Pulse Resp B/P (MAP) Pulse Ox O2 Delivery O2 Flow Rate FiO2 07/15/19 14:31 130 108/56 07/15/19 06:12 18 92 6.0 07/15/19 06:00 98.7 07/09/19 17:20 Nasal Cannula I&O- Last 24 Hours up to 6 AM 07/15/19 06:00 Intake Total 2100 ml Output Total 1100 ml Balance 1000 ml Laboratory Data 24H LABS Laboratory Tests 2 07/15/19 06:22: Immature Granulocyte % (Auto) , Nucleated Red Blood Cells % (auto) 0.0, Neutrophils 95H, Lymphocytes (Manual) 1L, Monocytes (Manual) 4, Platelet Estimate NORMAL, Red Blood Cell Morphology NORMAL, Anion Gap 4L, Glomerular Fi ltration Rate > 60.0, Blood Urea Nitrogen 18, Creatinine 0.19L, Sodium Level 135L, Potassium Level 3.5, Chloride Level 97L, Carbon Dioxide Level 34H, Calcium Level 8.6 CBC/BMP Laboratory Tests 07/15/19 06:22 Red Blood Count 3.39 L, Mean Corpuscular Volume 99.7 H, Mean Corpuscular Hemoglobin 33.3 H, Mean Corpuscular Hemoglobin Concent 33.4, Red Cell Distribution Width 14.1, Calcium Level 8.6 Microbiology Microbiology 07/10/19 Respiratory Virus Panel (PCR) ([facility]) - Final, Complete 07/09/19 Blood Culture - Final, Complete NO GROWTH AFTER 5 DAYS 07/09/19 Blood Culture - Final, Complete NO GROWTH AFTER 5 DAYS REJI MORTON MD Jul 15, 2019 14:57
[2019-07-15] MEDS: ALPRAZolam 0.25 MG TAB PO PRN (15:39)
[2019-07-15] MEDS: ENOXAPARIN 60 MG/0.6 ML SYR (J1650) SC SCH (18:08)
[2019-07-15 22:00] VITALS: BP 123/64
[2019-07-16] MEDS: ALPRAZolam 0.25 MG TAB PO PRN (02:12)
[2019-07-16] MEDS: LEVALBUTEROL 1.25 MG/0.5 ML CONCENTRATE NEB INH SCH ×6 (02:25→18:01)
[2019-07-16] MEDS: METOPROLOL TART 12.5 MG PER 1/2 TAB PO SCH ×4 (05:56→23:56)
[2019-07-16] MEDS: methylPREDNISolone INJ 40 MG/1 ML VIAL (J2920) IV SCH ×2 (05:57→17:47)
[2019-07-16] MEDS: SODIUM CHLORIDE 0.9% INJ 10 ML SYR IV SCH ×2 (05:57→17:48)
[2019-07-16] MEDS: oxyCODONE 5MG TAB PO PRN ×2 (05:57→14:12)
[2019-07-16 06:00] VITALS: BP 114/64; O2SAT 96
[2019-07-16 06:26] LABS: HEMATOCRIT 33.4 % (36.0-47.0); HEMOGLOBIN 11.1 g/dl (12.0-15.5); MEAN CORPUSCULAR HEMOGLOBIN 32.5 pg (27.0-33.0); MEAN CORPUSCULAR HGB CONC 33.2 g/dl (32.0-36.5); MEAN CORPUSCULAR VOLUME 97.7 fl (80.0-96.0); PLATELET COUNT, AUTOMATED 279 10^3/uL (150-450); RED BLOOD COUNT 3.42 10^6/uL (4.00-5.40); WHITE BLOOD COUNT 5.7 10^3/uL (4.0-10.0)
[2019-07-16 06:45] LABS: BLOOD UREA NITROGEN 19 MG/DL (7-18); CARBON DIOXIDE LEVEL 32 MEQ/L (21-32); CHLORIDE LEVEL 98 MEQ/L (98-107); CREATININE FOR GFR 0.24 MG/DL (0.55-1.30); GLOMERULAR FILTRATION RATE > 60.0 (>58); GLUCOSE, FASTING 96 MG/DL (70-100); POTASSIUM SERUM 3.6 MEQ/L (3.5-5.1); SODIUM LEVEL 136 MEQ/L (136-145)
[2019-07-16 06:58] LABS: ATYPICAL LYMPH 1 % (0-5); LYMPHOCYTES 4 % (16-44); MONOCYTES 4 % (0-5); NEUTROPHILS 90 % (28-66)
[2019-07-16 07:01] LABS: ANISOCYTOSIS 1+; DOHLE BODIES 1+; PLATELET ESTIMATE NORMAL (NORMAL)
[2019-07-16 07:06] LABS: POIKILOCYTOSIS 1+
[2019-07-16] MEDS: SYMBICORT 80/4.5MCG INHALER 6GM INH SCH ×2 (07:38→18:24)
[2019-07-16] MEDS: BACITRACIN OINT 30GM TOP SCH ×2 (09:00→21:00)
[2019-07-16] MEDS: POTASSIUM CHLORIDE 10% LIQ 20 MEQ/15 ML UDC PO SCH ×2 (09:00→09:31)
[2019-07-16] MEDS: MONTELUKAST 10 MG TAB PO SCH (09:30)
[2019-07-16] MEDS: FOLIC ACID 1 MG TAB PO SCH (09:30)
[2019-07-16] MEDS: CETIRIZINE (ZyrTEC) 10 MG TAB PO SCH (09:30)
[2019-07-16] MEDS ORDERED: ALPRAZolam 0.25 MG TAB PO PRN ×2 (10:00→18:00)
[2019-07-16] MEDS ORDERED: PILL CUTTER 1 EACH XX PRN (10:00)
[2019-07-16] MEDS ORDERED: PEMBROLIZUMAB OVER 30 MINUTES IV ONE ×2 (10:00)
--- NOTE | 2019-07-16 10:51 | IPN ---
DATE: 07/15/2019 Ms. Gonzalez subjectively feels a little less of short of breath. When I first entered her room, she was sleeping and it looked as if she was almost having agonal breathing however. When I wake her up, she is still tachypneic and is using the accessory muscles of respirations in her neck. She is taking short gasps of air. Nonetheless, regardless of those observations she subjectively feels a bit better. Her vital signs show a maximum temperature (Tmax) of 98.8 with a heart rate that ranges between 117-133 with a regular rate and rhythm. Her respiratory rate is recorded as 18-24 but it looks more like 30. She is 88-99% saturated on 5-6 liters nasal cannula. Her blood pressure is ranging between 123/64-108/56. Her intake and output for the past 24 hours has been recorded as 1800 mL in and 900 mL out for a positivity of 900 mL. There is no weight on her today. On physical examination, her lungs show diffuse wheezes in both expiration and inspiration. Percussion note is full the diaphragm. Cardiac exam shows crisp heart sounds without murmurs, clicks, gallops, or rubs. Her point of maximum impulse (PMI) is in the fifth intercostal space in the midclavicular line under her inframammary fold. S1 and S2 are normal. Abdomen is soft, nontender. Bowel sounds are positive but hypoactive. There is costovertebral angle (CVA) tenderness and no hepatomegaly. Extremities show no pretibial edema and no calf tenderness. No differential swelling of the upper extremities. Her skin is warm, dry and perfused without cyanosis or mottling, including that of the nail beds and the knees. Neck is supple. There is no jugular venous distention. No subcutaneous emphysema. Use of accessory muscles is noted. Trachea is midline. Mouth shows her mucous membranes to be pink and moist. Lips and commissures without lesions. There is no thrush. Eyes show her pupils equal and reactive. Extraocular motor intact. Sclerae are nonicteric. Neurologic shows II-XII intact along with gross motor and gross sensation intact. Gait is not tested. Psychiatric exam shows her to be awake and alert with appropriate mood and affect with appropriate anxiety. Her white count is 9.6 with hemoglobin and hematocrit of 11.3 and 33.8. Differential shows 75% neutrophils, 1% lymphocytes, 4% monocytes. There are no immature forms. No toxic granulations. She had Neulasta 2 days ago, and her white count has come down from 24.1 to 9.6. Her electrolytes are essentially normal with an improvement in her total CO2 to 34 down from 38 yesterday. BUN and creatinine are 18 and 0.19, glucose of 107 and a calcium of 8.6. Her chest x-ray looks possibly marginally improved with less opacity particularly in the upper lobes. Cardiac silhouette is normal. I am not sure whether I am merely imagining the improvement or not however. It is a very soft call. IMPRESSION: 1. Diffuse adenocarcinoma, PD-L1 positive with 40% expression. 2. Hypoxia. 3. Respiratory failure. 4. Pericardial effusion, so far noncompressive. 5. Continuing pemetrexed and carboplatinum chemotherapy. 6. History of tobacco use. 7. Remote history of IV heroin use. 8. Cachexia. PLAN AND DISCUSSION: I am gratified that she feels a bit better. She still looks in serious state however. We will continue to watch her very carefully. The use of Keytruda is being considered.
--- NOTE | 2019-07-16 11:17 | ONC.PHACK ---
CHEMO ADMIN CHECKLIST Order Contains Pt ID: Name, Order on Chemo Order Form?: Yes Order Form Includes ALL: Correct Tx Day, Correct Date, Correct Cycle Number Pt ID on Order form Matches: Pt ID on PHA Label Med on Chemo OrderForm Matches: PHA Label, Med Used for Preparation [facility] Jul 16, 2019 11:17
--- NOTE | 2019-07-16 12:12 | IPN ---
DATE: 07/16/2019 Ms. Gonzalez has just gotten back from the bathroom, having a bowel movement. She is very short of breath. However, prior to her going to the bathroom she said that she was breathing better, even better than she was yesterday. In fact, yesterday afternoon she describes her afternoon as the best day that she has had in a long time. Her vital signs show a maximum temperature (t-max) of 98.8 with a heart rate that ranges between 117 and 130 with a regular rate and rhythm. Respiratory rate is 20 to 40 with the use of neck accessory muscles. She is 93 to 96% saturated on 5 to 6 liters nasal cannula. Her blood pressure is ranging between 114/64 to 123/64. Her intake and output over the past 24 hours has been recorded as 1220 in and 200 out for a positivity of 1020 mL. She has taken in 920 mL in oral intake and 300 mL in IV intake. Her weight today is 42.5 kg compared to 43.1 kg on 07/12/2019. PHYSICAL EXAMINATION: LUNGS: Her left lung is markedly improved. I hear no wheezes, rhonchi or rales. Percussion note is full to the diaphragm. Her right lung still shows inspiratory and expiratory wheezing but it is less so than yesterday and certainly less than it was the day before. Percussion note is full to the diaphragm on the right. CARDIAC EXAM: Without murmurs, clicks, gallops or rubs. Her point of maximum impulse (PMI) is in the 5th intercostal space in the inframammary fold in the midclavicular line and well palpable. There are murmurs, clicks, gallops or rubs. S1, S2 are normal. ABDOMEN: Soft, nontender. Bowel sounds positive. There is no hepatomegaly. No costovertebral angle tenderness. EXTREMITIES: Show no pretibial edema. No calf tenderness. No differential swelling of the upper extremities. SKIN: Warm, dry and perfused without cyanosis or mottling, including that of the nail beds and knees. NECK: Supple. There is no jugular venous distention. No subcutaneous emphysema. Trachea is midline. MOUTH: Shows her mucous membranes to be pink and moist. Lips and commissures without lesions. There is no thrush. EYES: Show her pupils to be equal and reactive. Extraocular motion intact. Sclerae anicteric. NEUROLOGIC: Shows II through XII intact with gross motor and gross sensation intact. Gait is not tested. PSYCHIATRIC: Shows her to be awake and alert, oriented times three with appropriate mood and affect and conversational, but appropriate anxious from her shortness of breath. LABORATORY DATA: Her white count today is 5.7 with a hemoglobin and hematocrit of 11.1 and 33.4, respectively. Differential shows 90% neutrophils, 4% lymphocytes, and 4% monocytes with 1 band form. Her chemistries show normal electrolytes. Her total CO2 is now down to 32, having been 38 on 07/14/2019. Glucose is 96 with a calcium of 9.0. There is no chest x-ray on her today and I will obtain one tomorrow. IMPRESSION: 1. Diffuse adenocarcinoma, PD-L1 positive, 40% expression. 2. Hypoxia. 3. Respiratory failure. 4. Pericardial effusion, so far noncompressive. 5. Continuing pemetrexed and carboplatin therapy. 6. History of tobacco abuse. 7. Remote history of IV heroin use. PLAN/DISCUSSION: She has been started on immunotherapy using Keytruda. It looks as though she is making small steps with incremental improvement. I have encouraged her to eat as much as she can. I will obtain a chest x-ray on her tomorrow. Clinically, she is not in tamponade, and I hear crisp heart sounds and there is no jugular venous distention (JVD) and there is no hypertension.
[2019-07-16 14:00] VITALS: BP 115/79
[2019-07-16] MEDS: ENOXAPARIN 60 MG/0.6 ML SYR (J1650) SC SCH (17:47)
--- NOTE | 2019-07-16 18:45 | IPN ---
DATE: 07/16/2019 The patient is requesting increasing doses and more frequent Xanax as this is the only way that she can rest at night and able to settle down and breathe better. Per the mother at the bedside and the patient, the patient is able to breathe better when she takes the Xanax and she is able to rest more comfortably. The patient has been extremely anxious due to recent events with recent diagnosis of metastatic lung cancer and pulmonary embolism. The patient continues to have dyspnea on exertion, unable to go to the bathroom without feeling very short of breath. She denies any dizziness or lightheadedness. Complains of palpitations at times and unable to be comfortable. She is currently sitting up, which is the most comfortable position for her. She is using respiratory accessory muscles. Unable to complete her sentences and has three to four word conversational dyspnea. There is no nasal flaring or tracheal deviation. PHYSICAL EXAMINATION: VITAL SIGNS: Temperature 98, pulse 136, sinus tachycardia, respiratory rate 24, blood pressure 118/65, 92% on 6 liters nasal cannula. GENERAL: The patient is cachectic appearing with bitemporal wasting. She is in moderate respiratory distress with use of respiratory accessory muscles without nasal flaring with three to four word conversational dyspnea. No jugular venous distention (JVD) or thyromegaly. No cervical lymphadenopathy. LUNGS: Diminished with bilateral wheezing. Air entry is diminished but equal bilaterally. HEART: S1, S2. Sinus tachycardia. ABDOMEN: Soft, nontender, nondistended. Positive bowel sounds times four quadrants. EXTREMITIES: No pitting edema. The patient has significant muscle wasting. CURRENT MEDICATIONS: - metoprolol - Xanax - Symbicort - Solu-Medrol - potassium - Zofran - heparin - Zyrtec - Singulair - folic acid - Xopenex - bacitracin - Lidocaine - morphine - oxycodone LABORATORY DATA: White count 5.7, hemoglobin 11, hematocrit 33, platelet count 279. Sodium 136, potassium 3.6, chloride 98, bicarbonate 32, BUN 19, creatinine 0.24, glucose of 96. Respiratory panel is negative. Blood culture with no growth after 5 days. IMAGING STUDIES: Chest x-ray on 07/15/2019 showed extensive interstitial nodular pulmonary parenchymal disease persisting with no new infiltrates. ASSESSMENT AND PLAN: This is a 44-year-old female with a 30 pack year history of smoking who presented with right low back pain and found to have lytic lesion in the right ileum with soft tissue mass, found to have metastatic adenocarcinoma of the lung, as well as pericardial effusion. The patient was recently diagnosed with pulmonary embolism, had been on Lovenox as an outpatient. Currently admitted for worsening shortness of breath. CURRENT ISSUES: 1. Metastatic adenocarcinoma of the lung to the right ischium. Status post palliative radiation of right iliac completed on 07/05/2019. The patient had received Keytruda and continued on folic acid 1 mg daily. Carboplatin and pemetrexed have been given. No further chemotherapy for the next [address] Kavya Pang, this is the first cycle of salvage inpatient chemotherapy that was given on 07/11/2019, no further chemotherapy is needed, the patient does not need to be in the hospital for the remainder of her stay. Physical therapy (PT) has been consulted. If the patient is too weak, will need some alternative discharge plan. If the patient does not have any significant improvement in the next 2 weeks, the patient would be appropriate for hospice, per Dr. Kavya Pang. 2. Acute on chronic hypoxic respiratory failure secondary to adenocarcinoma of the lung, possible fluid overload and possible obstructive lung disease. At this time, the patient is on IV steroids per Dr. Escamilla. May taper down to oral prednisone. On high flow, comfort flow oxygen. Lasix as needed. 3. Severe anxiety. The patient is requesting increasing doses of Xanax and more frequent dosing. It has been explained to her that due to her respiratory distress, both from the lung cancer, recent pulmonary embolism and possible pulmonary hypertension with possible obstructive lung disease, she is at risk for respiratory depression and possible intubation or BiPAP therapy. The patient is aware of this and agrees with changing her Xanax to as needed doses every 4 hours at a reduced dose. 4. History of pulmonary embolism. On Lovenox daily. 5. Moderate pericardial effusion, most likely malignant, managed by Dr. Hopkins. Noncompressive and no signs of cardiac tamponade on recent echo. 6. Remote history of IV heroin use. 7. Chronic hypoxic respiratory failure secondary to lung cancer. Possible obstructive lung disease, probable pulmonary hypertension. 8. Protein calorie malnutrition. Body Mass Index (BMI) of 18.3 due to cancer cachexia. [employer] consultation for supplemental nutrition. She is to have Ensure Enlive three times a day at snack times to provide 1050 calories. MTDD
--- NOTE | 2019-07-16 19:40 | IPN ---
DATE: 07/16/2019 I was asked to see this patient by Dr. Berrios, hospitalist, earlier today regarding the patient's anxiety and an evaluation regarding pharmacological management. She had informed me as to what the patient had been receiving, essentially Xanax, and concerns regarding using that given the patient's condition and respiratory depression and subsequent further complications with the possibility of the patient deteriorating to the point where she may require intubation. I had discussed things with Dr. Berrios regarding the limitations of using a benzodiazepine like Xanax, as well as its advantages. She asked me to see the patient. When I came to see her, her mother was here as well and indicated that the matter had been resolved to their satisfaction after a discussion with Dr. Berrios and Dr. Pang, oncologist. The patient is now on Xanax at 0.25 mg every 6 hours as needed for anxiety. The nurses indicated that the patient had received 0.125 mg once early this afternoon. Given this, the patient and her mother did not think that an evaluation was needed at this point and particularly considering the patient's state did not want to go through with it. I spoke with the patient briefly and the patient's mother, who was at the bedside. Should an evaluate by psychiatry be needed, please call psychiatry traffic division commanding officer. The patient and her mother are aware of this. For a few minutes, less than 10, the patient was sitting up in bed, breathing slowly. Has oxygen and was coherent. She did not talk much.
[2019-07-16 22:00] VITALS: BP 113/70
[2019-07-17] MEDS: LEVALBUTEROL 1.25 MG/0.5 ML CONCENTRATE NEB INH PRN (02:13)
[2019-07-17] MEDS ORDERED: ALPRAZolam 0.25 MG TAB PO ONE (02:30)
[2019-07-17] MEDS: LEVALBUTEROL 1.25 MG/0.5 ML CONCENTRATE NEB INH SCH ×6 (04:00→20:00)
[2019-07-17] MEDS: SODIUM CHLORIDE 0.9% INJ 10 ML SYR IV SCH ×2 (05:46→18:16)
[2019-07-17] MEDS: methylPREDNISolone INJ 40 MG/1 ML VIAL (J2920) IV SCH (05:46)
[2019-07-17] MEDS: METOPROLOL TART 12.5 MG PER 1/2 TAB PO SCH ×3 (05:46→18:00)
[2019-07-17 06:00] VITALS: BP 109/65
[2019-07-17] MEDS: SYMBICORT 80/4.5MCG INHALER 6GM INH SCH ×2 (07:51→20:46)
[2019-07-17] MEDS: FOLIC ACID 1 MG TAB PO SCH (08:21)
[2019-07-17] MEDS: CETIRIZINE (ZyrTEC) 10 MG TAB PO SCH (08:21)
[2019-07-17] MEDS: BACITRACIN OINT 30GM TOP SCH ×2 (08:21→20:06)
[2019-07-17] MEDS: MONTELUKAST 10 MG TAB PO SCH (08:21)
[2019-07-17] MEDS: POTASSIUM CHLORIDE 10% LIQ 20 MEQ/15 ML UDC PO SCH (08:22)
[2019-07-17 10:00] VITALS: BP 93/64
--- NOTE | 2019-07-17 10:19 | REP ---
Two-view chest: 07/17/2019. Indication: Dyspnea. Comparison: 2 days earlier. Findings: No significant pleural fluid is detected by this technique. There is no evidence of pneumothorax. Diffuse bilateral interstitial and nodular opacities are redemonstrated. Cardiac silhouette is within normal limits. Impression: Interstitial and nodular pulmonary parenchymal disease persists unchanged. No significant new infiltrates or pleural fluid detected. Electronically Signed by Camron Hummel DO 07/17/2019 10:10 A
[2019-07-17 11:23] LABS: HEMATOCRIT 33.2 % (36.0-47.0); HEMOGLOBIN 11.3 g/dl (12.0-15.5); MEAN CORPUSCULAR HEMOGLOBIN 32.2 pg (27.0-33.0); MEAN CORPUSCULAR VOLUME 94.6 fl (80.0-96.0); PLATELET COUNT, AUTOMATED 187 10^3/uL (150-450); RED BLOOD COUNT 3.51 10^6/uL (4.00-5.40); WHITE BLOOD COUNT 3.1 10^3/uL (4.0-10.0)
[2019-07-17 11:52] LABS: ALBUMIN 2.8 GM/DL (3.2-5.2); ALT/SGPT 45 U/L (12-78); BILIRUBIN,TOTAL 0.5 MG/DL (0.2-1.0); BLOOD UREA NITROGEN 20 MG/DL (7-18); CALCIUM LEVEL 8.6 MG/DL (8.5-10.1); CARBON DIOXIDE LEVEL 28 MEQ/L (21-32); CHLORIDE LEVEL 97 MEQ/L (98-107); CREATININE FOR GFR 0.18 MG/DL (0.55-1.30); GLOMERULAR FILTRATION RATE > 60.0 (>58); GLUCOSE, FASTING 114 MG/DL (70-100); POTASSIUM SERUM 3.5 MEQ/L (3.5-5.1); SODIUM LEVEL 133 MEQ/L (136-145); TOTAL PROTEIN 5.4 GM/DL (6.4-8.2)
[2019-07-17 12:00] VITALS: BP 91/59
[2019-07-17 12:08] LABS: LYMPHOCYTES 12 % (16-44); MONOCYTES 1 % (0-5); NEUTROPHILS 74 % (28-66)
[2019-07-17 12:09] LABS: HYPOCHROMASIA 2+; PLATELET ESTIMATE NORMAL (NORMAL)
--- NOTE | 2019-07-17 12:47 | IPN ---
DATE OF SERVICE: 07/17/2019 Per nursing, the patient has been extremely tachycardic when walking 2 feet from her bed to the bedside commode. Heart rate increased up to 140-150, and the patient's oxygen saturations remained stable at 95-96% on 5 liters of high flow oxygen. The patient currently continues to have palpitations, dyspnea on exertion, dyspnea at rest with use of respiratory muscles. She denies any chest pain, pressure or tightness. No fevers or chills overnight. Temperature 98, pulse 122, sinus tachycardia, respiratory rate 22, blood pressure 109/65, 95% on 5 liters nasal cannula. The patient refused to be examined this morning and stated that my perfume was too strong for her and it bothers her. Per nursing at the bedside, I have asked for jugular venous distention (JVD) to be assessed and that was negative. According to RN at the bedside, she continues to have diminished breath sounds with bilateral wheezing. The rest of the examination could not be performed. Laboratory data unavailable. ASSESSMENT AND PLAN: 44-year-old female, recent diagnosis of adenocarcinoma of the lung metastatic to the right iliac wing eroding into the sacrum completed radiation treatment and recently received Keytruda with a moderate pericardial effusion with no signs of tamponade, significant history of cigarette smoking. ACTIVE ISSUES: 1. Acute hypoxic respiratory failure secondary to non small cell lung cancer, stage IV metastatic adenocarcinoma to the right ilium eroding into the ischium status post palliative radiation 07/05/2019. The patient is continued on folic acid, had received carboplatin, pemetrexed and Keytruda. No further chemotherapy for the next 3 weeks, per Dr. Kavya Pang, this is the first cycle of salvage inpatient chemotherapy that was given on 07/11/2019 and no further chemotherapy is needed at this time and does not need hospital stay. If the patient does not have significant improvement in the next 2 weeks, per Dr. Kavya Pang, the patient would be appropriate for hospice. She is still current a FULL CODE. 2. Moderate pericardial effusion, most likely malignant from metastatic adeno CA of the lung. At this time, Dr. Salvador Hopkins has been monitoring her for tamponade. Clinically does not have JVD on exam. Repeat chest x-ray is done today. Echocardiogram was done 3 days ago with recommendations from p d driver Dr. Roberson to repeat in 2-3 days to monitor for decompensation. Blood pressure is well maintained with no episodes of low blood pressure at this time. 3. Severe anxiety. On Xanax. 4. Pulmonary embolism. On Lovenox. 5. Remote history of IV heroin use. 6. Protein calorie malnutrition with cancer cachexia, body mass index (BMI) of 18. The patient is encouraged to take Ensure supplemental 1 can three times a day and at snack time. DISPOSITION: Poor overall prognosis. The patient is still a FULL CODE. Appropriate for palliative care or hospice.
[2019-07-17] MEDS: ALPRAZolam 0.25 MG TAB PO PRN ×3 (14:09→23:53)
[2019-07-17 16:00] VITALS: BP 107/70
[2019-07-17] MEDS: oxyCODONE 5MG TAB PO PRN ×2 (16:51→23:45)
--- NOTE | 2019-07-17 18:02 | IPN ---
DATE: 07/17/2019 DIAGNOSIS: Metastatic adenocarcinoma of lung PD-L1, 40% with widespread pulmonary metastases and bone involvement, status post left iliac radiation, now day #6, cycle one salvage carboplatin/pemetrexed/pembrolizumab with pembrolizumab having been given day #5. The patient remains hypoxic, dyspneic, requiring 6 liters nasal cannula, now in intensive care unit (ICU). At the bedside Sonia is reclining, her mother at her side. She looks in no more distress than on other days. Speaks in short sentences but answers questions fairly quickly and easily. She has refused higher levels of oxygen, as she does not like the way it feels in her nose. I explained to her the concept of tiring breathing muscles. She consented to some slightly higher oxygen during our conversation. I raised end-of-life issues with Sonia. We have spoken about these, before but I pointed out to her that should the chemotherapy not work, she will deteriorate, gradually be unable to breathe on her own, and require intubation as the only life-saving measure. This would likely be a terminal event in the sense that she would be unlikely ever to be off the respirator. I also raise the possibility her heart could stop beating, or she could go into a lethal arrhythmia due to a malignant pleural effusion, and she might require shocks and/or compressions versus an urgent surgical procedure to continue life, again which would require the respirator. I spoke directly to her about DO NOT RESUSCITATE orders, but she said she would like not make a decision tonight. Will continue to follow.
[2019-07-17] MEDS: ENOXAPARIN 60 MG/0.6 ML SYR (J1650) SC SCH (18:15)
[2019-07-17 20:00] VITALS: BP 134/85
--- NOTE | 2019-07-17 22:17 | REPVR ---
PROCEDURE INFORMATION: Exam: CT Chest Without Contrast Exam date and time: 07/17/2019 9:33 PM Clinical history: 44 years old, female; Shortness of breath; Additional info: Questionable pleural effusion TECHNIQUE: Imaging protocol: Computed tomography of the chest without contrast. 3D rendering: MIP reconstructed images were created and reviewed. Radiation optimization: All CT scans at this facility use at least one of these dose optimization techniques: automated exposure control; mA and/or kV adjustment per patient size (includes targeted exams where dose is matched to clinical indication); or iterative reconstruction. COMPARISON: CT Chest without contrast 07/14/2019 11:01 AM FINDINGS: Lungs: Bilateral pulmonary infiltrates with focal areas of consolidation or nodularity with underlying reticulonodular or tree in bud infiltrates. There is thickening of the right major fissure which may reflect adjacent atelectasis or consolidation and may reflect a completely atelectatic right middle lobe. With a Hounsfield measurement of 27, loculated effusion is not considered as likely. Pleural space: Unremarkable. No pneumothorax. No pleural effusion. Heart: Mild pericardial effusion. Aorta: The ascending thoracic aorta measures 26 mm. Lymph nodes: Unremarkable. No enlarged lymph nodes. Gallbladder and bile ducts: Status post cholecystectomy. Bones/joints: Unremarkable. No acute fracture. Soft tissues: Unremarkable. IMPRESSION: 1. Bilateral pulmonary infiltrates with focal areas of consolidation or nodularity with underlying reticulonodular or tree in bud infiltrates. Overall, the appearance is similar to slightly improved since 07/14/2019. 2. Complete atelectasis of the right middle lobe. 3. Mild pericardial effusion which is similar to the prior study Electronically signed by: Roberto Tilley On 07/17/2019 22:17:30 PM
[2019-07-17] MEDS ORDERED: LIDOCAINE 1% MDV 20ML VIAL As Ordered ONE (22:23)
[2019-07-17] MEDS ORDERED: FLUMAZENIL 0.5 MG/5 ML VIAL As Ordered ONE (22:23)
[2019-07-17] MEDS ORDERED: BUPIVACAINE LIPOSOME/PF 1.3% 20ML VIAL (13.3MG/ML)(EXPAREL)(C9290 PER1MG) As Ordered ONE (22:38)
[2019-07-17] MEDS ORDERED: BUPIVACAINE HCL 0.5% 10 ML VIAL As Ordered ONE (22:38)
[2019-07-17] MEDS ORDERED: MIDAZOLAM INJ 2 MG/2 ML VIAL (J2250) As Ordered ONE ×2 (22:46→22:47)
[2019-07-17] MEDS ORDERED: MIDAZOLAM INJ 2 MG/2 ML VIAL (J2250) IV STA (23:43)
--- NOTE | 2019-07-17 23:56 | REP ---
Clinical: Chest tube placement. Comparison: 07/17/2019. Findings: Chest tube at the left base identified. Mediastinum and cardiac silhouette are stable within normal limits. Lung hammer demonstrate diffuse bilateral alveolar and interstitial infiltrates primarily involving the left lower lobe. No obvious effusion. No obvious pneumothorax. Skeletal structures intact. Impression: Chest tube identified at the left base. No change in bilateral infiltrates (left greater than right). Electronically Signed by Rome Noland MD 07/17/2019 11:47 P
[2019-07-18] VITALS: BP 100/63
[2019-07-18] MEDS: METOPROLOL TART 12.5 MG PER 1/2 TAB PO SCH
[2019-07-18] MEDS: ALPRAZolam 0.25 MG TAB PO PRN (00:23)
[2019-07-18] MEDS ORDERED: ALPRAZolam 0.25 MG TAB PO ONE (00:30)
[2019-07-18] MEDS: LEVALBUTEROL 1.25 MG/0.5 ML CONCENTRATE NEB INH SCH (00:50)
[2019-07-18 00:54] LABS: LDH LACTATE DEHYDROGENASE 308 U/L (84-246)
[2019-07-18 01:10] VITALS: BP 111/69
[2019-07-18 01:27] LABS: SOURCE, BODY FLUID pH PERICARDIAL
[2019-07-18 01:28] LABS: PH BODY FLUID > 7.800 UNITS (NOT ESTABLISHED)
[2019-07-18 02:07] LABS: AMYLASE, BODY FLUID 18 U/L (NOT ESTABLISHED); CHOLESTEROL, BODY FLUID 55 MG/DL (NOT ESTABLISHED); LDH, BODY FLUID 893 U/L (NOT ESTABLISHED); SOURCE, BODY FLUID ALBUMIN PERICARDIAL; SOURCE, BODY FLUID AMYLASE PERICARDIAL; SOURCE, BODY FLUID CHOL PERICARDIAL; SOURCE, BODY FLUID GLUCOSE PERICARDIAL; SOURCE, BODY FLUID LDH PERICARDIAL; SOURCE, BODY FLUID TOT PROTEIN PERICARDIAL; SOURCE, BODY FLUID TRIG PERICARDIAL; TOTAL PROTEIN, BODY FLUID 3.4 G/DL (NOT ESTABLISHED); TRIGLYCERIDE, BODY FLUID 40 MG/DL (NOT ESTABLISHED)
[2019-07-18 02:09] LABS: APPEARANCE, BODY FLUID CLEAR
[2019-07-18] MEDS ORDERED: EPINEPHrine 1MG/10ML SYRINGE 1.5IN ONE (02:10)
--- NOTE | 2019-07-18 06:50 | IPN ---
DATE: 07/17/2019 The patient was transferred to the ICU today by the hospitalist service. Upon my seeing her this morning, I see no change in her from yesterday. I am not sure exactly why she was transferred to the ICU. She was getting anxious and short of breath but that was resolved with additional Xanax. Her vital signs show a T-max of 98.0 with a heart rate that ranges between 134 and 122, is sinus tachycardia with a respiratory rate of 22-24 with the use of accessory muscles. Her heart rate ranges between 134-122 and her blood pressure ranges between 109/65 to 90/59. On physical examination today, her lung show much less wheezing than they have done in the past. In fact, I only heard a few inspiratory wheezes at the very base of the right lung. Percussion note is full to the diaphragm. Cardiac exam is without murmurs, clicks, gallops or rubs. Her point of maximal impulse (PMI) is in the 5th intercostal space in the midclavicular line. S1 and S2 are normal. Abdomen is soft and nontender. Bowel sounds are positive. There is no hepatomegaly. No costovertebral angle (CVA) tenderness. Extremities show no pretibial edema. No calf tenderness. No differential swelling of the upper extremities. Skin is warm, dry and perfused without cyanosis or mottling including that of the nail beds and the knees. Neck is supple. There is no jugular venous distention. No subcutaneous emphysema. Trachea is midline. She is using the sternocleidomastoid muscles as accessory muscles of respirations. Mouth shows her mucous membranes to be pink and moist. Lips and commissures are without lesions. There is no thrush. Eyes show her pupils to be equal and reactive. Extraocular motors are intact. Sclera nonicteric. Neuro shows II through XII intact, along with gross motor and gross sensation intact. Gait is not tested. Psychiatric shows her to have appropriate mood and affect with appropriate anxiety secondary to shortness of breath. Her white count today is 3.1, down from 5.7 yesterday. Hemoglobin and hematocrit are 11.3 and 33.2 respectively with a platelet count of 187. Her differential shows 74% neutrophils, 13% bands, 12% lymphocytes and 1 monocyte. Her chemistries today show marginally low sodium of 133 with a total CO2 of 28, improved from a maximum of 38 on 07/14/2019. BUN and creatinine are 20 and 0.18. Albumin is 2.8 with a calcium of 8.6. Her chest x-ray today is unchanged from two days ago. There is still all the markings of what is probably lymphangitic spread with patchy infiltrates and reticular patching patterns. Cardiac size in unchanged. IMPRESSION: 1. Diffuse adenocarcinoma, PD-L1 positive, 40% expression. 2. Hypoxia. 3. Respiratory failure. 4. Pericardial effusion, so far noncompressive. 5. Status post pemetrexed and carboplatinum therapy. 6. History of tobacco abuse. 7. Remote history of IV heroin use. PLAN AND DISCUSSION: Because of a reported increase in her shortness of breath, which I do not note on my examination at the present time, I will obtain a repeat echocardiogram to ascertain the functionality of her pericardial effusion. Clinically she is not in tamponade. I do not see jugular venous distention (JVD) nor is she hypotensive and her heart sounds are clear with a very palpable PMI. I will await the echocardiogram results.
--- NOTE | 2019-07-18 06:58 | ECHO ---
DATE OF STUDY: 07/17/2019 REFERRING PHYSICIAN: Salvador Hopkins MD INDICATION: Pericardial effusion. HEIGHT: 152 cm WEIGHT: 42.1 kg 2D MEASUREMENTS: Ventricular septum 0.82 cm Posterior wall 1.08 cm Left ventricle 2.8 cm diastole Left atrium 1.8 cm Aortic root 2.4 cm Aortic annulus 2.0 cm Inferior vena cava 1.7 cm with marked respiratory variation with transient near collapse. DOPPLER MEASUREMENTS: Aortic valve velocity 110 cm/s LVOT velocity 84.2 cm/s LVOT VTI 10.3 cm Mitral E velocity 62.2 cm/s Mitral A velocity 86.9 cm/s Very mild mitral regurgitation Estimated right ventricle systolic pressure 56 mmHg assuming a right atrial pressure of 5 mmHg Pulmonary artery systolic pressure 38 mmHg MITRAL ANNULAR TISSUE DOPPLER: E prime septal 7.2 cm/s E prime lateral 14.4 cm/s DESCRIPTION: Rhythm was sinus tachycardia. Image quality was good. This was a 2D, M mode, color flow Doppler and pulse wave Doppler examination and included mitral annular tissue Doppler. CONCLUSIONS: 1. Large pericardial effusion which measured maximal 21.5 cm over the LV apex, 15.9 mm over the lateral RV free wall, 3.6 mm over the LV posterior wall. There was a partial right atrial and right ventricle collapse. Left ventricle appeared to be underfilled. Left atrium appeared underfilled. 2. Normal left ventricle regional wall motion and wall thickening. Normal LV wall thickness. LVEF 70% by visual estimate. Appearance of underfilling of the left ventricle. 3. Suggestive of moderate elevation of pulmonary artery systolic pressure and estimated right ventricle systolic pressure. I sent a text message to Dr. Salvador Hopkins to inform him of the large pericardial effusion with partial collapse of the right atrium and right ventricle and appearance of underfilling of the left ventricle upon my review of this echocardiogram Doppler.
--- NOTE | 2019-07-18 07:33 | RO ---
DATE OF PROCEDURE: 07/17/2019 PREPROCEDURE DIAGNOSES: Pericardial effusion. Pericardial tamponade. POSTPROCEDURE DIAGNOSES: Pericardial effusion. Pericardial tamponade. PROCEDURE: 1. Pericardiocentesis. 2. Pericardiostomy under echocardiographic control. SURGEON: Dr. Salvador Hopkins. WEDGER MACHINE: ANESTHESIA: Monitored sedation. Patient was more short of breath this morning and therefore, that prompted me to obtain an echocardiogram. The echocardiogram showed a large pericardial effusion with signs of right ventricular collapse and compression. Chest CT confirmed the increase in pericardial effusion. Therefore, a pericardiocentesis along with tube pericardiostomy was then undertaken. The pericardium was entered with production of preventricular contractions (PVCs). Just a little bit of fluid, perhaps 5 mL was collected in a syringe, however, a lot of it spilled onto the drape through the needle prior to placing the wire. The tube was placed and then we completely lost the pericardial picture and there was an air-leak from the tube and I presumed the tube was in the pleural space and caused a pneumothorax. The tube was placed to PleurX suction and we re-obtained imaging of the heart. At that point in time, it was very clear the pericardial effusion was much less and that the IVC was collapsing well. There was still a thin rim of pericardial effusion left. DESCRIPTION OF PROCEDURE: Under satisfactory monitored sedation achieved with 4 mg of Versed, the patient was prepped and draped in the usual sterile fashion. An echocardiographic window was obtained at the apex just lateral to the sternum in an inframammary fold. The skin and subcutaneous tissue intercostal muscle was infiltrated with 1% Lidocaine. A needle was slowly advanced into I obtained clear fluid. The wire was then placed under echocardiographic control. It looked as if the wire was anterior and it was in the pericardial space. An incision was made and the tract was dilated and a percutaneous tube was placed. At that point, there was no drainage and I started to pull the tube back and we then lost our echocardiographic window. The was an air leak from the tube itself and I therefore, connected to a Pleur-evac with result of being able to re-acquire imaging. At that point, it was very clear that the pericardial effusion was much less, although there was still a very thin crust of pericardial effusion. The inferior cava was completely collapsible during inspiration. The tube was secured to the chest wall with #2-0 silk suture. The patient tolerated the procedure well. Postoperative chest x-ray showed the tube at the bottom of the hemithorax possibly within the pericardium with the lung fully expanded to the chest wall and no pneumothorax.
[2019-07-18] MEDS ORDERED: predniSONE 20 MG TAB PO SCH (09:00)
--- NOTE | 2019-07-18 20:39 | DSES ---
DATE OF ADMISSION: 07/09/2019 DATE OF DISCHARGE: 07/18/2019 The patient on 07/18/2019. She was a FULL CODE, but mother refused resuscitation and the patient quickly. PRIMARY DISCHARGE DIAGNOSES: 1. Pericardial tamponade. 2. Large malignant pericardial effusion. 3. Acute on chronic hypoxic respiratory failure secondary to bilateral pulmonary embolism, malignant pericardial effusion with tamponade and adenocarcinoma with collapse of the right lung. 4. Pneumothorax. 5. Cancer cachexia. 6. Severe protein calorie malnutrition. 7. Chronic obstructive pulmonary disease (COPD) exacerbation. 8. 50 pack year history of smoking. 9. History of recreational drug use with intravenous heroin. 10. Pancytopenia. 11. Electrolyte abnormalities with low potassium. PROCEDURES DURING THIS ADMISSION: 1. 07/17/2019 pericardiocentesis under echo control, air leak and pneumothorax. CONSULTANTS DURING THIS ADMISSION: Cardiothoracic surgeon, Dr. Salvador Hopkins. Forestry Crew Chief/oncologist, Dr. Kavya Pang. Psychiatrist, Dr. Arlette Camilo for the patient's anxiety. Senior Process Analyst, Dr. Gonzales and Dr. Edgardo Escamilla. HOSPITAL COURSE: This is a 44-year-old female with over 50 pack year history of smoking, bilateral pulmonary embolisms, diagnosed with adenocarcinoma of the lung with metastatic lesion to the right ilium eroding into the sacral ring, completed radiation treatment for palliation and underwent chemotherapy and immunotherapy. The patient was treated also for known history of bilateral pulmonary embolism, had been chronically on oxygen, about 6 liters. She presented with worsening respiratory distress. She was noted to have worsening pericardial effusion, monitored by serial echocardiograms, cardiothoracic surgeon monitoring and CT of the chest. The patient was extremely anxious and had some relief with Xanax 0.125 mg every 6 hours. Due to worsening respiratory distress and use of anxiolytics, we attempted to discuss code status with the patient, who remained FULL CODE until the day of . The patient's mother was the healthcare proxy. Dr. Arlette Camilo was consulted to assist with her anxiety to see if there is any other medications that would not cause respiratory depression. The patient was transferred to the intensive care unit (ICU) due to working respiratory distress, requiring 6 liters of oxygen. She remained tachycardic with ventricular rate of 140 to 175 when she attempts to move 1.5 feet to 2 feet to the bedside commode. She was unable to work with physical therapy (PT) due to severe tachypnea and tachycardia. Despite daily discussions with her oncologist, the patient maintained a full code status. She had episodes of low potassium, which was supplemented. She was initially treated with Solu-Medrol due to bilateral wheezing, which her lard tub washer, Dr. Escamilla felt would be chronic due to the changes in her lungs from the adenocarcinoma. On 07/18/2019, the patient was evaluated with a CT of the chest and found to have a large pericardial effusion. Stat echocardiogram showed pericardial tamponade, pericardiocentesis was performed at the bedside by Dr. Salvador Hopkins with 5 mL collected in the syringe, most spilled on the drape prior to placing the wire. Air leak was found in the tube and the tube was presumed to be in the pleural space and across pneumothorax. The tube was placed to the PleurX suction, and reimaging of the heart showed clearance of pericardial effusion was less and the IVC was collapsing well with a residual thin rim of pericardial effusion. Postoperative x-ray showed tube at the bottom of the hemithorax from within the pericardium with the lung fully expanded to the chest wall and no pneumothorax noted. The patient then began to decompensate further with heart rate decreasing from 150 to 130, down to 52. Mother was at the bedside and did not want resuscitation nor intubation for the patient and the patient with her mother at the bedside. Time spent on discharge: 30 minutes. MTDD
--- NOTE | 2019-07-22 09:49 | ECHO ---
DATE OF PROCEDURE: 07/17/2019 REFERRING PHYSICIAN: Dr. Berrios and Dr. Hopkins INDICATION: Pericardial effusion. Height 150 cm Weight 39 kg FINDINGS: This is a limited study after pericardiocentesis. No measurements were obtained. Based on limited views, there is residual pericardial effusion. It appears approximately moderate based on limited views. I do not appreciate any collapse of any of four cardiac chambers but it remains circumferential and in the area close to the left ventricular apex is relatively large. There appears to be indication for air in the pericardium. On one of the views it seems that the catheter is visible in the pericardial space even though it is not very convincing Compared to the study performed earlier the same day, it is difficult to make a comment whether there has been any change. Based on limited views, the size of the effusion is probably slightly smaller but not much. MTDD
== END 2019-07-18 03:56 | disposition expired | DRG 136 ==
LOC: M ED 14:09 → EDBD 14:09 → M ED INP 17:07 → M MSPAV 17:07 → M ICU 07-17 08:59
PROVIDERS: ADMIT Internal Medicine Nephrology; ATTEND General Practice
PROC: 05H933Z Insertion of Infusion Device into Right Brachial Vein, Percutaneous Approach (ICD-10-PCS; 2019-07-10)
PROC: 3E03305 Introduction of Other Antineoplastic into Peripheral Vein, Percutaneous Approach (ICD-10-PCS; principal; 2019-07-11)
PROC: 0W9D30Z Drainage of Pericardial Cavity with Drainage Device, Percutaneous Approach (ICD-10-PCS; 2019-07-17)
DX: C34.81 Malignant neoplasm of overlapping sites of right bronchus and lung (principal); J96.21 Acute and chronic respiratory failure with hypoxia; I31.4 Cardiac tamponade; I26.99 Other pulmonary embolism without acute cor pulmonale; E43 Unspecified severe protein-calorie malnutrition; R64 Cachexia; C79.51 Secondary malignant neoplasm of bone; D61.818 Other pancytopenia; C77.1 Secondary and unspecified malignant neoplasm of intrathoracic lymph nodes; D68.59 Other primary thrombophilia; I31.3 Pericardial effusion (noninflammatory); I27.20 Pulmonary hypertension, unspecified; Z99.81 Dependence on supplemental oxygen; E87.70 Fluid overload, unspecified; G89.3 Neoplasm related pain (acute) (chronic); R26.89 Other abnormalities of gait and mobility; C34.82 Malignant neoplasm of overlapping sites of left bronchus and lung; J44.9 Chronic obstructive pulmonary disease, unspecified; Z87.891 Personal history of nicotine dependence; Z79.899 Other long term (current) drug therapy; Z79.891 Long term (current) use of opiate analgesic; D72.829 Elevated white blood cell count, unspecified; Z92.3 Personal history of irradiation; E87.6 Hypokalemia; F41.9 Anxiety disorder, unspecified; Z68.1 Body mass index [BMI] 19.9 or less, adult